=== PATIENT | female | born 1950 | race Caucasian/White ===

== ENCOUNTER → 2017-08-23 09:57 | Outpatient (CLI) | payer MEDICARE, SELFPAY ==
[2017-08-23 12:33] LABS: Anion Gap 9 (5-15); BUN 24 mg/dL (7-18); BUN/Creat Ratio 21.4 RATIO (10-20); Calcium,Total 9.1 mg/dL (8.5-10.1); Chloride 102 mmol/L (98-107); Cholesterol 138 mg/dL (200); Creatinine, Serum 1.12 mg/dL (0.55-1.02); EST Glomerular Filtration Rate 51 mL/min (>60); Est Glom Filt Rate - Afr Amer 62 mL/min (>60); Glucose 94 mg/dL (74-106); High Density Lipoprotein 33 mg/dL; Potassium 4.6 mmol/L (3.5-5.1); Sodium Level 138 mmol/L (136-145); Triglycerides 255 mg/dL; Very Low Density Lipoprotein 51 mg/dL (5-40)
[2017-08-23 12:41] LABS: Hemoglobin A1c 7.1 % (4.2-6.3)
== END ==
PROVIDERS: Family Provider Family Medicine; PCP Family Medicine; Visit Provider Family Medicine
DX: E11.65 Type 2 diabetes mellitus with hyperglycemia (principal); E78.5 Hyperlipidemia, unspecified
CPT/HCPCS: 36415; 80048; 80061; 83036

== ENCOUNTER → 2017-09-07 13:28 | Outpatient (CLI) | payer MEDICARE, SELFPAY ==
--- NOTE | 2017-09-07 13:32 | RAD_ITS ---
STUDY: X-RAY - CERVICAL SPINE REASON FOR EXAM: Female, 67 years old. Pain. TECHNIQUE: 5 view(s) of the cervical spine were obtained. COMPARISON: None FINDINGS: Normal anterior atlantoaxial articulation. Normal odontoid process. Normal cervical lordosis. There is mild multi-level endplate spondylosis. There is mild multi-level degenerative disc disease with multilevel disc space narrowing. Normal visualized intervertebral neuroforamina. The soft tissue structures are unremarkable. There is no demonstrated fracture of the cervical spine. RAD/Cerv Spine 4 or 5 Views IMPRESSION: Mild degenerative changes. No acute abnormality. Electronically Signed: Kofi Arroyo MD at 20:05 EDT , Service support ,
== END ==
PROVIDERS: Family Provider Family Medicine; PCP Family Medicine; Visit Provider Family Medicine
DX: M54.2 Cervicalgia (principal)
CPT/HCPCS: 72050

== ENCOUNTER → 2018-01-13 12:49 | Outpatient (CLI) | payer MEDICARE, SELFPAY | PROVIDERS: Family Provider Family Medicine; PCP Family Medicine; Visit Provider Family Medicine | DX: Z12.31 Encounter for screening mammogram for malignant neoplasm of breast (principal) | CPT/HCPCS: 77063; 77067 ==

== ENCOUNTER 2018-06-25 15:28 | Inpatient (IN) | payer MEDICARE, SELFPAY ==
[2018-06-25 15:29] VITALS: BP 149/87; PULSE 77; RESP 14; TEMP 36.7; O2SAT 98; BMI 23.4
--- NOTE | 2018-06-25 15:51 | ED.RN ---
FRIEND OF PT SIVAKUMAR, TO BE NOTIFIED WHEN PT'S BLOOD WORK AND URINE ARE BACK. [phone].
[2018-06-25 16:10] LABS: Bacteria 0 SEEN /hpf (None Seen); Mucous, Urine 0 SEEN /hpf (<or=2+); Red Blood Cells-Urine 0 SEEN /hpf (0-5)
[2018-06-25 16:19] LABS: Color, Urine Straw (Yellow); Glucose, Dipstick Normal (Normal); Ketone-Dipstick Negative (Negative); Leukocyte Esterase-Dipstick 25 /ul (Negative); Nitrite-Dipstick Negative (Negative); Occult Blood-Urine Negative /ul (Negative); Protein-Dipstick Negative (Negative); Specific Gravity, Urine 1.005 (1.002-1.030); Urine Bilirubin Dipstick Negative (Negative); Urine Clarity Clear (Clear); Urine Urobilinogen Normal (Normal)
[2018-06-25 16:30] LABS: Amphetamine Urine VISTA NEGATIVE (<1000 ng/mL); Barbiturate Urine VISTA NEGATIVE (< 200 ng/mL); Benzodiazepine Urine VISTA NEGATIVE (< 200 ng/mL); Cocaine Urine VISTA NEGATIVE (< 300 ng/mL); Ecstacy Urine VISTA NEGATIVE (< 500 ng/mL); Methadone Urine VISTA NEGATIVE (< 300 ng/mL); PCP Urine VISTA NEGATIVE (< 25 ng/mL); THC Urine VISTA POSITIVE (< 50 ng/mL); Vista UDS pH Range 7
[2018-06-25 16:30] LABS: Absolute Lymphocyte Count 2.87 X10^3/ul (0.83-4.51); Absolute Neutrophil Count 7.7 X10^3/uL (2.0-7.7); Basophil# 0.03 X10^3/uL; Basophil% 0.3 % (0-1); Eosinophil# 0.03 X10^3/uL; Eosinophils% 0.3 % (0-5); Hematocrit 33.2 % (37-47); Hemoglobin 11.2 g/dl (12.0-15.0); Lymphocyte # 2.87 X10^3/ul (4.0); Lymphocyte % 25.4 % (19-41); Mean Corp Hgb Conc 33.7 g/gl (32-36); Mean Corpuscular Hgb 28.7 pg (27.0-32.0); Mean Corpuscular Volume 85.1 fL (81-99); Mean Platelet Vol. 8.8 fl (6.2-12.0); Monocyte# 0.61 X10^3/uL; Monocyte% 5.4 % (0-10); Neutrophil # 7.72 X10^3/uL (2.7-7.7); Neutrophil % 68.4 % (47-70); Platelet Count 384 K/mm3 (150-450); RBC Distribution Width CV 14.7 % (11.6-14.6); RBC Distribution Width SD 46.1 fl (35.1-43.9); White Blood Count 11.3 K/mm3 (4.4-11.0)
[2018-06-25 16:31] LABS: POSITIVE COUNT NO; POSITIVE DIFFERENTIAL NO; POSITIVE MORPHOLOGY NO
[2018-06-25 16:36] LABS: Squamous Epithelial Cells - UA 0-5 SEEN /hpf (5-10); White Blood Cells 0-5 SEEN /hpf (0-5)
[2018-06-25 16:46] LABS: ALB/GLOB Ratio 0.9 RATIO (0.9-2.4); AST(SGOT) 40 U/L (15-37); Alanine Aminotransfer ALT/SGPT 30 U/L (13-56); Albumin, Serum 4.1 g/dL (3.2-5.0); Alkaline Phosphatase 83 U/L (45-117); Anion Gap 10 (5-15); BUN 17 mg/dL (7-18); BUN/Creat Ratio 17.6 RATIO (10-20); Calcium,Total 9.3 mg/dL (8.5-10.1); Chloride 83 mmol/L (98-107); Creatinine, Serum 0.97 mg/dL (0.55-1.02); EST Glomerular Filtration Rate 61 mL/min (>60); Est Glom Filt Rate - Afr Amer 74 mL/min (>60); Estimated Creatinine Clearance 49.25 ml/min; Globulin 4.6 g/dL (2.2-4.2); Glucose 97 mg/dL (74-106); Protein, Total 8.7 g/dL (6.4-8.2); Sodium Level 119 mmol/L (136-145)
--- NOTE | 2018-06-25 16:46 | EKG12_ITS ---
Test Reason : MENTAL STATUS Blood Pressure : / mmHG Vent. Rate : 064 BPM Atrial Rate : 064 BPM P-R Int : 216 ms QRS Dur : 106 ms QT Int : 422 ms P-R-T Axes : 062 -15 040 degrees QTc Int : 435 ms Sinus rhythm with 1st degree A-V block Incomplete right bundle branch block Borderline ECG Confirmed by DANDRE RAMSEY, KAYLAN ([id number]), senior editor GAVINO ALCALA ([id number]) on 06/30/2018 9:06:18 AM Referred By: DC Confirmed By:KAYLAN AMOS MD
[2018-06-25 16:51] LABS: Alcohol, Blood (Medical)-Serum < 3.0 mg/dL
--- NOTE | 2018-06-25 17:07 | ED.VISSUMM ---
- ER Visit Summary Date of Service: 06/25/18 Chief Complaint: Medication reaction History of Present Illness: The patient is a 68 F with a possible medication reaction. The patient has been having increasing manic symptoms for several months because she has been smoking marijuana more frequently. She said her symptoms have been worse over the past 5 days specifically. She says that this started after switching from Depakote to a new psychiatric medication. She is not sure of the name. She had some nausea and 2 episodes of vomiting at a voodoo buffet today. She currently denies nausea or abdominal pain. Denies any fevers. Denies any chest pain or shortness of breath. She does report decreased sleep and mild agitation. Denies any suicidal or homicidal thoughts. Physical Examination: Afebrile and vital signs unremarkable. Alert and oriented. Very slightly labile affect. No suicidal or homicidal thoughts. Head and neck atraumatic. Cranial nerves grossly intact. Heart regular. Lungs clear. Abdomen soft. Test Results: EKG showed sinus rhythm at a rate of 64. First-degree AV block and incomplete right bundle branch block pattern White count 11.3 and hemoglobin 11.2. Sodium 119 and chloride 83. AST 40. Urinalysis unremarkable. Alcohol negative. Tox positive for THC. Emergency Department Course and Treatment: Patient initially presented with some manic type symptoms. I do not believe she was a threat to herself or others. She was not pink slipped. I plan to have her evaluated by the crisis counselor. We attempted to figure out which new medicine she was on, but the patient is not sure. Her workup revealed a hyponatremia. I am not sure what is causing this. She has no history of this. She is not an alcohol drinker regularly. Again, I am not sure what medication she is on. We were unable to get this information from her . We will attempt to get the information from the crisis counselor. We are still waiting for this evaluation. Patient will need admission for hyponatremia. I do not believe she needs ICU. No history or evidence of seizures. I spoke with the hospitalist and she will be admitted to [facility]. Treatment Plan: As above Disposition: Admission Impression: 1. Hyponatremia 2. Bipolar disorder This note was generated with [employer]vation [employer] software. It may contain incorrect words, spelling, and punctuation that were not noted in review of the chart prior to signing ED Disposition - Plan for ED Patient: Referrals: Yemi Vasquez MD [Primary Care Provider] -
--- NOTE | 2018-06-25 17:10 | ED.DCSUM_ITS ---
- ER Visit Summary Date of Service: 06/25/18 Chief Complaint: Medication reaction History of Present Illness: The patient is a 68 F with a possible medication reaction. The patient has been having increasing manic symptoms for several months because she has been smoking marijuana more frequently. She said her symptoms have been worse over the past 5 days specifically. She says that this started after switching from Depakote to a new psychiatric medication. She is not sure of the name. She had some nausea and 2 episodes of vomiting at a yarsanism buffet today. She currently denies nausea or abdominal pain. Denies any fevers. Denies any chest pain or shortness of breath. She does report decrease d sleep and mild agitation. Denies any suicidal or homicidal thoughts. Physical Examination: Afebrile and vital signs unremarkable. Alert and oriented. Very slightly labile affect. No suicidal or homicidal thoughts. Head and neck atraumatic. Cranial nerves grossly intact. Heart regular. Lungs clear. Abdomen soft. Test Results: EKG showed sinus rhythm at a rate of 64. First-degree AV block and incomplete right bundle branch block pattern White count 11.3 and hemoglobin 11.2. Sodium 119 and chloride 83. AST 40. Urinalysis unremarkable. Alcohol negative. Tox positive for THC. Emergency Department Course and Treatment: Patient initially presented with some manic type symptoms. I do not believe she was a threat to herself or others. She was not pink slipped. I plan to have her evaluated by the crisis counselor. We attempted to figure out which new medicine she was on, but the patient is not sure. Her workup revealed a hyponatremia. I am not sure what is causing this. She has no history of this. She is not an alcohol drinker regularly. Again, I am not sure what medication she is on. We were unable to get this information from her . We will attempt to get the information from the crisis counselor. We are still waiting for this evaluation. Patient will need admission for hyponatremia. I do not believe she needs ICU. No history or evidence of seizures. I spoke with the hospitalist and she will be admitted to [facility]. Treatment Plan: As above Disposition: Admission Impression: 1. Hyponatremia 2. Bipolar disorder This note was generated with [employer] software. It may contain incorrect words, spelling, and punctuation that were not noted in review of the chart prior to signing ED Disposition - Plan for ED Patient: Referrals: Yemi Vasquez MD [Primary Care Provider] -
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
[2018-06-25] MEDS: LORazepam 1 MG Tablet PO ×2 (17:41→20:37)
[2018-06-25 17:51] VITALS: BP 142/77; PULSE 70; RESP 14; O2SAT 98
--- NOTE | 2018-06-25 18:17 | PCM.HP.STD ---
Problem List (1) Hyponatremia Status: Acute History of Present Illness Date of Admission: 06/25/18 Chief Complaint: joseph. near syncope The patient is a 68 year old F who states over the past month that she has been feeling more manic. Was at [facility] today where patient had couple episodes of vomiting and then patient was sent to the emergency room. Patient was noted to have a sodium of 119. Just received Ativan in the emergency room. Patient states that she does drink a lot but does not necessarily quantify the amount that she is drinking but states that she is thirsty and that she drinks a lot because she is a diabetic. Denies any alcohol consumption. Sodium is found to be 119 and was 138 back in August 2017. Patient being admitted for hyponatremia management and follow-up. Patient does endorse also daily and does have vomiting. Patient does not necessarily attributed to coincide with her marijuana use. Denies any alcohol consumption. [] Past Medical History Medical History: Medical History (Last Updated 06/25/18 @ 18:21 by Jose Liu DO) Bipolar disorder F31.9 DM2 (diabetes mellitus, type 2) E11.9 Psoriasis L40.9 Allergies codeine Allergy (Verified 06/25/18 15:34) Other Home Medications: Ambulatory Orders Medication Instructions Recorded Citalopram [Celexa] 20 mg PO QHS 01/13/15 Liraglutide [Victoza 2-Drew] 0.6 mg SQ DAILY 01/13/15 Lorazepam [Ativan] 1 mg PO TID PRN PRN 01/13/15 Losartan Potassium [Cozaar] 100 mg PO DAILY 01/13/15 Lurasidone HCl [Latuda] 20 mg PO DAILY 01/13/15 Melatonin/Pyridoxine HCl (B6) 1 each PO QHS 01/13/15 [Melatonin 10 mg Tablet] Metformin HCl [Glucophage] 1,000 mg PO BIDCM 01/13/15 Omeprazole [Prilosec] 20 mg PO DAILY 01/13/15 Pravastatin [Pravachol] 80 mg PO QHS 01/13/15 Asenapine Maleate [Saphris] 5 mg SUBLINGUAL QHS 06/25/18 Lives: Spouse/ Significant Other Smoking Status: Former smoker Tobacco Use: Non-smoker Alcohol: None Drugs: Marijuana - *Family History Maternal History Items: No pertinent history Review of Systems Constitutional: Reports: Chills. Denies: Anorexia, Fever Eyes: Denies: Blurred vision, Double vision HEENT: Denies: Head Aches, Sinus Congestion, Sinus Drainage Cardiovascular: Denies: Chest Pain, Palpitations Respiratory: Denies: Cough, Shortness of breath at rest, Sputum production Gastrointestinal: Reports: Nausea, Vomiting. Denies: Abdominal Pain Genitourinary: Denies: Dysuria Musculoskeletal: Denies: Joint Pain, Joint Tenderness Skin: Reports: - - Eczema Neurological: Denies: Numbness, Tingling, Focal weakness Psychiatric: Reports: - - Bipolar disorder Hematologic/ Lymphatic: Denies: Easy Bruising, Easy Bleeding, Hx of blood clot Comment: A 10 point review of systems were negative except as mentioned in the history of present illness and the other review of systems. VTE Information - Inpt Only VTE Present on Admission: No VTE Mechan Device Prophylaxis: None VTE Pharm Prophylaxis ordered?: Yes Patient Problems: Active and Suspected Problems Hyponatremia (Acute) - Physical Exam General: Alert, Cooperative, No apparent distress HEENT: Atraumatic, Normocephalic Oral: Moist Mucosa, No Gingival or Mucosal Lesions/ Ulcerations Neck: No Nodes, Thyroid Normal Size and Texture Lungs: Clear to auscultation, Normal air movement, No rhonchi, No wheeze Cardiovascular: Regular rate, Regular Rhythm, Normal S1, Normal S2, No murmurs Abdomen: Bowel Sounds Present, Soft, Non Tender, Non-Distended, No Hepato-splenomegaly Extremities: No edema, No Calf Tenderness Skin: - - Eczema over the dorsum of her hands bilaterally Psych/Mental Status: Normal Affect, Appropriate Vital Signs Temp Pulse Resp BP Pulse Ox 36.7 C 70 14 142/77 H 98 06/25/18 15:29 06/25/18 17:51 06/25/18 17:51 06/25/18 17:51 06/25/18 17:51 Oxygen Delivery Method Room Air Weight: 63.957 kg Body Mass Index (BMI) 23.4 Laboratory Tests Past 24 Hrs 06/25/18 06/25/18 06/25/18 16:00 16:00 16:15 WBC 11.3 H RBC 3.90 L Hgb 11.2 L Hct 33.2 L MCV 85.1 MCH 28.7 MCHC 33.7 RDW 14.7 H RDW Differential 46.1 H Plt Count 384 MPV 8.8 Immature Gran % (Auto) 0.200 Neut % (Auto) 68.4 Lymph % (Auto) 25.4 [place] % (Auto) 5.4 Eos % (Auto) 0.3 Baso % (Auto) 0.3 Absolute Neuts (auto) 7.7 Absolute Lymphs (auto) 2.87 Total Counted Not Reportable Sodium Potassium Chloride Carbon Dioxide Anion Gap BUN Creatinine Estim Creat Clear Calc Est GFR (MDRD) Af Amer Est GFR (MDRD) Non-Af BUN/Creatinine Ratio Glucose Calcium Total Bilirubin AST ALT Alkaline Phosphatase Total Protein Albumin Globulin Albumin/Globulin Ratio Urine Color Straw Urine Clarity Clear Urine pH 7.0 Ur Specific [place] 1.005 Urine Protein Negative Urine Glucose (UA) Normal Urine Ketones Negative Urine Occult Blood Negative Urine Nitrite Negative Urine Bilirubin Negative Urine Urobilinogen Normal Ur Leukocyte Esterase 25 H Urine RBC 0 SEEN Urine WBC 0-5 SEEN Ur Squamous Epith Cells 0-5 SEEN Urine Bacteria 0 SEEN Urine Mucus 0 SEEN Urine Opiates Screen NEGATIVE Urine Methadone Screen NEGATIVE Ur Barbiturates Screen NEGATIVE Ur Phencyclidine Scrn NEGATIVE Ur Amphetamines Screen NEGATIVE U Methamphetamin-MDMA NEGATIVE U Benzodiazepines Scrn NEGATIVE Urine Cocaine Screen NEGATIVE U Cannabinoids Screen POSITIVE H Ur Drug Screen Comment Ethyl Alcohol 06/25/18 06/25/18 16:15 16:15 WBC RBC Hgb Hct MCV MCH MCHC RDW RDW Differential Plt Count MPV Immature Gran % (Auto) Neut % (Auto) Lymph % (Auto) [place] % (Auto) Eos % (Auto) Baso % (Auto) Absolute Neuts (auto) Absolute Lymphs (auto) Total Counted Sodium 119 L* Potassium 4.0 Chloride 83 L Carbon Dioxide 26.0 Anion Gap 10 BUN 17 Creatinine 0.97 Estim Creat Clear Calc 49.25 Est GFR (MDRD) Af Amer 74 Est GFR (MDRD) Non-Af 61 BUN/Creatinine Ratio 17.6 Glucose 97 Calcium 9.3 Total Bilirubin 0.70 AST 40 H ALT 30 Alkaline Phosphatase 83 Total Protein 8.7 H Albumin 4.1 Globulin 4.6 H Albumin/Globulin Ratio 0.9 Urine Color Urine Clarity Urine pH Ur Specific [place] Urine Protein Urine Glucose (UA) Urine Ketones Urine Occult Blood Urine Nitrite Urine Bilirubin Urine Urobilinogen Ur Leukocyte Esterase Urine RBC Urine WBC Ur Squamous Epith Cells Urine Bacteria Urine Mucus Urine Opiates Screen Urine Methadone Screen Ur Barbiturates Screen Ur Phencyclidine Scrn Ur Amphetamines Screen U Methamphetamin-MDMA U Benzodiazepines Scrn Urine Cocaine Screen U Cannabinoids Screen Ur Drug Screen Comment Ethyl Alcohol < 3.0 Assessment/Plan All Active Problems Hyponatremia (Acute) 1. Hyponatremia I suspect is related with polydipsia and possible vomiting Patient will receive normal saline IV fluids Will hold Celexa given its potential cause of SIADH and hyponatremia Recheck sodium in the morning 2. Possible gastroenteritis Patient had a near syncopal episode today which I think is part related with a viral etiology Supportive management 3. Possible cannabinoid hyperemesis Patient made aware of the correlation with intractable nausea and vomiting associated with marijuana use. Patient stated that she was saved in [facility] and that she got the demons of marijuana out of her. Essentially she says she is negative smoke marijuana anymore. 4. Diabetes mellitus type 2 Continue with Tradjenta and Metformin Sliding scale insulin 5. Bipolar disorder Reviewed her medications if there are potential cause of hyponatremia. I think I can find is Celexa, which will be held. Patient to follow-up with psychiatry as outpatient 6. DVT prophylaxis with Lovenox Code Visit OBSV E&M: [id number] Initial observation care L2
[2018-06-25 18:21] VITALS: BMI 27.5
[2018-06-25 18:45] VITALS: BMI 27.5
[2018-06-25 18:53] VITALS: BP 116/80; PULSE 71; RESP 16; TEMP 36.9; O2SAT 97
[2018-06-25] MEDS: Dext 5%-0.45% NS 1,000 ML 150 ML IV (19:50)
[2018-06-25] MEDS: Pravastatin 80 MG Tablet PO (21:44)
[2018-06-25] MEDS: MELATONIN 10 MG TABLET PO (21:44)
[2018-06-25] MEDS: 0.9% NaCl Peripheral Flush Adult/Peds IV (21:45)
[2018-06-25 21:50] VITALS: BP 141/82; PULSE 63; RESP 16; TEMP 36.8; O2SAT 95
[2018-06-25 21:58] LABS: Bedside Glucose 181 mg/dL (70-110)
--- NOTE | 2018-06-25 22:58 | NURSING ---
2034- pt freaking out because RN told her she has melatonin to help her sleep tonight, pt states he couldn't take melatonin because it doesn't help. pt started crying and asking to call the dr and get valium 10 mg order. paged and spoke to Dr. Cabrera and made him aware, states to give her ativan one time now. gave ativan to pt and states if cant sleep tonight and will be really bad she's manic. explained to pt we are trying to help her and we can only give what ordered. also her NA was low and don't wan to give her valium. 2199- pts IV infiltrated because she keeps tagging it to the br. pt refused to have another one reinserted and started crying again and asking for ibuprofen for her headache. pt refused tylenol. 2299- charge nurse spoke to pt to try to convince her to have another Iv. charge nurse states pt refused and wants her pain meds. will paged Dr. cabrera.
[2018-06-25] MEDS: Ibuprofen 400 MG Tablet PO (23:32)
--- NOTE | 2018-06-25 23:39 | NURSING ---
2314- spoke to Dr. Cabrera and made him aware pt refusing her IV reinserted, her first one got infiltrated d/t pt tagging his line to the br. states to tell the pt she needs it because her Na was low. also pt asking for ibuprofen for her h/a. order received. 9856- spoke to pt and told her DR. Cabrera wanted her to be on IVF to fix her low Na which is 119. pt states she doesn't want any IV line anymore and she is refusing.
[2018-06-26 05:20] VITALS: BP 135/78; PULSE 75; RESP 16; TEMP 36.6; O2SAT 94
[2018-06-26 06:32] LABS: Anion Gap 12 (5-15); BUN 15 mg/dL (7-18); BUN/Creat Ratio 15.6 RATIO (10-20); Calcium,Total 9.3 mg/dL (8.5-10.1); Chloride 88 mmol/L (98-107); Creatinine, Serum 0.96 mg/dL (0.55-1.02); EST Glomerular Filtration Rate 61 mL/min (>60); Est Glom Filt Rate - Afr Amer 74 mL/min (>60); Estimated Creatinine Clearance 39.73 ml/min; Glucose 168 mg/dL (74-106); Sodium Level 122 mmol/L (136-145)
[2018-06-26 07:01] LABS: Bedside Glucose 208 mg/dL (70-110)
[2018-06-26] MEDS: Insulin Lispro 100 UNIT/ML INSULN.PEN SQ ×3 (07:01→16:34)
[2018-06-26] MEDS: LORazepam 1 MG Tablet PO ×3 (07:46→20:15)
[2018-06-26] MEDS: Ibuprofen 400 MG Tablet PO ×3 (07:47→20:15)
[2018-06-26 07:50] VITALS: BP 145/89; PULSE 71; RESP 18; TEMP 36.4; O2SAT 97
[2018-06-26] MEDS: metFORMIN HCl 1,000 MG Tablet 1000 MG PO ×2 (07:51→16:34)
[2018-06-26] MEDS: Enoxaparin 40 MG/0.4 ML Syringe SC (07:54)
--- NOTE | 2018-06-26 08:16 | PCM.PN.HOSP ---
Patient Problems: Active and Suspected Problems (Last Updated 06/25/18 @ 18:21 by Jose Liu DO) Hyponatremia (Acute) Subjective: Patient was seen and examined. She complains of feeling weak and feeling very tired. She denied any chest pain or dizziness. She feels less confused. She admits her current admission is due to her joseph and insertable test from her recent medications. No other acute events overnight. Vitals/I&O's: Vital Signs Temp Pulse Resp BP Pulse Ox 97.8 F 75 16 135/78 H 94 06/26/18 05:20 06/26/18 05:20 06/26/18 05:20 06/26/18 05:20 06/26/18 05:20 Oxygen Delivery Method Room Air Weight: 65 kg Body Mass Index (BMI) 27.5 Intake and Output for Last 24 Hours 06/24/18 06/25/18 06/26/18 23:59 23:59 23:59 Intake Total 550 / 550 300 / 300 Balance 550 / 550 300 / 300 General: Alert, Oriented x3, Cooperative HEENT: Atraumatic, PERRLA, EOMI, Normocephalic Oral: Moist Mucosa Neck: Supple, No JVD, Negative Carotid Bruits Lungs: Clear to auscultation, Normal air movement Cardiovascular: Regular rate, Regular Rhythm, Normal S1, Normal S2, No murmurs Abdomen: Bowel Sounds Present, Soft, Non Tender, Non-Distended, No Hepato-splenomegaly Extremities: No edema Skin: No rashes, No breakdown Musculoskeletal: No Tenderness to Palpation of Joints or Extremities Lymphatic: No Cervical, Supraclavicular, or Inguinal Adenopathy Neurological: Cranial nerves II-XII grossly intact, Neuro grossly intact Psych/Mental Status: Normal Affect, Appropriate Laboratory Results 06/25/18 16:00: Urine Opiates Screen NEGATIVE, Urine Methadone Screen NEGATIVE, Ur Barbiturates Screen NEGATIVE, Ur Phencyclidine Scrn NEGATIVE, Ur Amphetamines Screen NEGATIVE, U Methamphetamin-MDMA NEGATIVE, U Benzodiazepines Scrn NEGATIVE, Urine Cocaine Screen NEGATIVE, U Cannabinoids Screen POSITIVE H, Ur Drug Screen Comment 06/25/18 16:00: Urine Color Straw, Urine Clarity Clear, Urine pH 7.0, Ur Specific [place] 1.005, Urine Protein Negative, Urine Glucose (UA) Normal, Urine Ketones Negative, Urine Occult Blood Negative, Urine Nitrite Negative, Urine Bilirubin Negative, Urine Urobilinogen Normal, Ur Leukocyte Esterase 25 H, Urine RBC 0 SEEN, Urine WBC 0-5 SEEN, Ur Squamous Epith Cells 0-5 SEEN, Urine Bacteria 0 SEEN, Urine Mucus 0 SEEN 06/25/18 16:15: WBC 11.3 H, RBC 3.90 L, Hgb 11.2 L, Hct 33.2 L, MCV 85.1, MCH 28.7, MCHC 33.7, RDW 14.7 H, RDW Differential 46.1 H, Plt Count 384, MPV 8.8, Immature Gran % (Auto) 0.200, Neut % (Auto) 68.4, Lymph % (Auto) 25.4, [place] % (Auto) 5.4, Eos % (Auto) 0.3, Baso % (Auto) 0.3, Absolute Neuts (auto) 7.7, Absolute Lymphs (auto) 2.87, Total Counted Not Reportable 06/25/18 16:15: Sodium 119 L*, Potassium 4.0, Chloride 83 L, Carbon Dioxide 26.0, Anion Gap 10, BUN 17, Creatinine 0.97, Estim Creat Clear Calc 49.25, Est GFR (MDRD) Af Amer 74, Est GFR (MDRD) Non-Af 61, BUN/Creatinine Ratio 17.6, Glucose 97, Calcium 9.3, Total Bilirubin 0.70, AST 40 H, ALT 30, Alkaline Phosphatase 83, Total Protein 8.7 H, Albumin 4.1, Globulin 4.6 H, Albumin/Globulin Ratio 0.9 06/25/18 16:15: Ethyl Alcohol < 3.0 06/25/18 21:40: POC Glucose 181 H 06/26/18 05:40: Sodium 122 L, Potassium 4.0, Chloride 88 L, Carbon Dioxide 22.0, Anion Gap 12, BUN 15, Creatinine 0.96, Estim Creat Clear Calc 39.73, Est GFR (MDRD) Af Amer 74, Est GFR (MDRD) Non-Af 61, BUN/Creatinine Ratio 15.6, Glucose 168 H, Calcium 9.3 06/26/18 06:52: POC Glucose 208 H Current Medications Acetaminophen (Tylenol) 650 mg PO Q6H PRN PRN PRN Reason: Mild Pain (1-3)/Temp > 100.7 F Dextrose (D50w Syringe) 0 gm IV X1 PRN; Protocol PRN Reason: Hypoglycemia Enoxaparin Sodium (Lovenox) 40 mg SC DAILY@1000 [facility] Last Admin: 06/26/18 07:54 Dose: 40 mg Glucagon () 1 mg IM .X1 PRN PRN Reason: Hypoglycemia Ibuprofen (Motrin) 400 mg PO Q6H PRN PRN PRN Reason: headache Last Admin: 06/26/18 07:47 Dose: 400 mg Insulin Human Lispro (Humalog Kwikpen (Bkc)) 0 unit SQ TIDAC [facility]; Protocol Last Admin: 06/26/18 07:01 Dose: 2 u Lorazepam (Ativan) 1 mg PO TID PRN PRN PRN Reason: ANXIETY Last Admin: 06/26/18 07:46 Dose: 1 mg Magnesium Hydroxide (Milk Of Magnesia) 30 ml PO DAILY PRN PRN PRN Reason: Constipation Melatonin (Melatonin) 10 mg PO QHS [facility] Last Admin: 06/25/18 21:44 Dose: 10 mg Metformin HCl (Glucophage) 1,000 mg PO BIDCM [facility] Last Admin: 06/26/18 07:51 Dose: 1,000 mg Non-Formulary Medication (Liraglutide) 0.6 mg SQ DAILY [facility] Ondansetron HCl (Zofran) 4 mg IV Q8H PRN PRN PRN Reason: NAUSEA Pantoprazole Sodium (Protonix) 20 mg PO DAILY [facility] Pravastatin Sodium (Pravachol) 80 mg PO QHS [facility] Last Admin: 06/25/18 21:44 Dose: 80 mg Sodium Chloride () 5 - 15 ml IV UD PRN PRN Reason: SALINE FLUSH Last Admin: 06/25/18 21:45 Dose: 10 ml Medical Necessity - Tobacco Use Smoking Status: Former smoker Tobacco Use: Cigarettes Assessment/Plan All Active Problems (Last Updated 06/25/18 @ 18:21 by Jose Liu DO) Hyponatremia (Acute) 68-year-old with past medical history of bipolar disorder, type II DM, psoriasis who comes in with complaints of vomiting and was found to have severe hyponatremia of 119. And admits to feeling very thirsty and drinking a lot since being started on Latuda. 1.Acute hyponatremia, secondary to psychogenic polydipsia and vomiting, patient clinically appears improved, sodium this morning is 122, increased by 3, patient is stable, will continue to restrict fluid to less than 1 L of total fluid per day, BMP at 12 noon and in a.m. 2.Possible gastroenteritis, resolved 3.Type 2 diabetes, blood sugars controlled, continue on Tradjenta metformin, Accu-Cheks with insulin sliding scale 4.Bipolar disorder, on asenapine, ativan prn, Latuda and Celexa on hold, will need to follow up with psychiatry in the outpatient. 5. DVT PPx- Lovenox Sc Code Visit Inpatient E&M: 21780 Subs Hosp L2
[2018-06-26 08:36] LABS: Absolute Lymphocyte Count 2.68 X10^3/ul (0.83-4.51); Basophil# 0.04 X10^3/uL; Basophil% 0.5 % (0-1); Eosinophil# 0.14 X10^3/uL; Eosinophils% 1.9 % (0-5); Hematocrit 32.9 % (37-47); Hemoglobin 11.1 g/dl (12.0-15.0); Lymphocyte # 2.68 X10^3/ul (4.0); Lymphocyte % 35.7 % (19-41); Mean Corp Hgb Conc 33.7 g/gl (32-36); Mean Corpuscular Hgb 29.1 pg (27.0-32.0); Mean Corpuscular Volume 86.1 fL (81-99); Mean Platelet Vol. 9.3 fl (6.2-12.0); Monocyte# 0.63 X10^3/uL; Monocyte% 8.4 % (0-10); Neutrophil # 4.01 X10^3/uL (2.7-7.7); Neutrophil % 53.4 % (47-70); Platelet Count 376 K/mm3 (150-450); RBC Distribution Width CV 14.8 % (11.6-14.6); RBC Distribution Width SD 46.7 fl (35.1-43.9); Red Blood Count 3.82 M/mm3 (4.2-5.4); White Blood Count 7.5 K/mm3 (4.4-11.0)
[2018-06-26 08:38] LABS: POSITIVE COUNT NO; POSITIVE DIFFERENTIAL NO; POSITIVE MORPHOLOGY NO
[2018-06-26 11:46] LABS: Bedside Glucose 174 mg/dL (70-110)
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
[2018-06-26 14:00] VITALS: BP 161/96; PULSE 73; RESP 16; TEMP 36.8; O2SAT 95
[2018-06-26 14:12] LABS: Anion Gap 13 (5-15); BUN 16 mg/dL (7-18); Calcium,Total 9.5 mg/dL (8.5-10.1); Chloride 87 mmol/L (98-107); Creatinine, Serum 1.14 mg/dL (0.55-1.02); EST Glomerular Filtration Rate 50 mL/min (>60); Est Glom Filt Rate - Afr Amer 61 mL/min (>60); Estimated Creatinine Clearance 33.45 ml/min; Glucose 196 mg/dL (74-106); Potassium 4.4 mmol/L (3.5-5.1); Sodium Level 122 mmol/L (136-145)
--- NOTE | 2018-06-26 15:02 | CHAPLAIN ---
Type of Pastoral Visit _x__ Initial Visit ___ Follow-up Visit ___ On-call Visit ___ General Patient Visit ___ Spiritual Assessment ___ Family Conference ___ Bereavement ___ Rapid Response ___ Code Blue ___ Other (describe below) Pastoral Care Referral From _x__ Patient ___ Family ___ Nurse ___ Physician ___ Psychological Operations Specialist ___ Load Out Worker ___ Other (describe below) Sacrament/Intervention _x__ Active listening ___ Anointing ___ Catholic ___ Bereavement ___ Communion _x__ [place] exploration ___ _x__ Life review _x__ Prayer ___ Reconciliation ___ Sacrament of Sick _x__ Supportive presence ___ Wedding ___ Other (describe below) Pastoral Comments followed SW visit to this patient; pt immediately requests a Bible and a Daily Bread devotional; pt is talkative and explains her situation and hx of bi-polar disorder; pt says she has been with alcoholic for 38 years; pt says she needs med change and needs to see Crisis Counselor soon; pt gives some life history and moves the conversation quickly; pt says she attends [employer] and is a Protestant; prayer welcomed; at conclusion pt reports that she feels peaceful and she quotes a Bible verse; staff educator gave pt a Daily Bread booklet and will return with Bible
--- NOTE | 2018-06-26 15:35 | NURSING ---
called Wyatt per pt request. provided update and informed him that the social work manager is working with the pt and is exploring options for her safety. verbalized understanding.
[2018-06-26 16:46] LABS: Bedside Glucose 189 mg/dL (70-110)
[2018-06-26 19:51] VITALS: RESP 18
[2018-06-26 19:58] VITALS: BP 136/88; PULSE 72; RESP 16; TEMP 37.1; O2SAT 98
[2018-06-26] MEDS: ASENAPINE MALEATE 5 MG TAB.SUBL SL (20:14)
[2018-06-26] MEDS: Pravastatin 80 MG Tablet PO (20:14)
[2018-06-26] MEDS: Pantoprazole Sodium 20 MG Tablet PO (20:14)
[2018-06-26] MEDS: MELATONIN 10 MG TABLET PO (20:16)
--- NOTE | 2018-06-26 23:48 | NURSING ---
Difficult to track output because patient is independent.
[2018-06-27] MEDS: Ibuprofen 400 MG Tablet PO ×4 (03:31→22:13)
[2018-06-27 03:32] VITALS: BP 139/100; PULSE 82; RESP 18; TEMP 36.7; O2SAT 99
[2018-06-27 03:46] LABS: Bedside Glucose 145 mg/dL (70-110)
[2018-06-27] MEDS: Insulin Lispro 100 UNIT/ML INSULN.PEN SQ ×3 (06:51→17:24)
[2018-06-27 07:01] LABS: Bedside Glucose 206 mg/dL (70-110)
--- NOTE | 2018-06-27 07:14 | PCM.PROGNOTE ---
Patient Problems: Active and Suspected Problems (Last Updated 06/25/18 @ 18:21 by Jose Liu DO) Hyponatremia (Acute) Subjective: Ms. Reddy is a 68 YO female with a PMH of bipolar disorder, diabetes mellitus type 2, hyperlipidemia, chronic marijuana use (stated she was saved in [facility] and that she got the demons Marijuana out of her. states she no longer smokes marijuana) and psoriasis who presented to the emergency department at [facility] on 06/25/2018 complaining of feeling manic. She also reported that she had a couple episodes of vomiting while at [facility]). Vital signs of presentation to the emergency room temperature 98, pulse rate 77, blood pressure 149/87, respiratory rate 14 and pulse ox on room air was 98%. CBC showed an elevated white blood cell count at 11.3, hemoglobin 11.2 and normal platelets. Serum sodium was 119 with a chloride of 83. BUN was 17 and the creatinine was 0.97. Liver panel was unremarkable. UA was negative for urinary tract infection. Urine drug screen was positive for cannabinoids. She was admitted to the hospital and intravenous fluids were ordered and repeat lab in the AM. Celexa was held because of possible side effects of SIADH and hyponatremia. She was counselled on marijuana use and potential side effect of hyperemesis. The hospital does not have Latuda or Asenapine. All events the past 24 hours been reviewed. Afebrile since admission. Vital signs are stable. She is 95-99% on room air. Fluid balance since admission is +850. All lab was personally reviewed. Sodium is 126 today with a BUN of 16 and a creatinine of 1.22. Blood sugars have ranged from 145-208. Fractional excretion of sodium is less than 1% which is usually seen with prerenal azotemia. Hemoglobin A1c is 6.9%. Denies nausea today and she is tolerating her current diet. Slept better last night. She was recently started on the Asenapine 1 week ago for joseph by the counselling center. Was not sleeping and was running up and down the stairs. - Physical Exam General: Alert, Oriented x3, Cooperative, No apparent distress HEENT: Atraumatic, PERRLA, EOMI, Normocephalic Oral: Dry Mucosa Neck: Supple, No JVD, No Nuchal Rigidity, Trachea Midline Lungs: Clear to auscultation Cardiovascular: Regular rate, Regular Rhythm, Normal S1, Normal S2, No murmurs, No Gallop Abdomen: Bowel Sounds Present, Soft, Non Tender, Non-Distended Extremities: No clubbing, No cyanosis, No edema Skin: No rashes Neurological: Cranial nerves II-XII grossly intact, Neuro grossly intact Psych/Mental Status: - - She is able to converse with me in a cohesive manner and she s able to answer questions apropriately and follow commands. she is not fidgety. She stays on topic but, when she is done answering my questions she starts talking abut unrelated topics......mild flight of ideas. Vital Signs Temp Pulse Resp BP Pulse Ox 98.0 F 82 18 139/100 H 99 06/27/18 03:32 06/27/18 03:32 06/27/18 03:32 06/27/18 03:32 06/27/18 03:32 Oxygen Delivery Method Room Air Weight: 143 lb 4.807 oz Body Mass Index (BMI) 27.5 Intake and Output for Last 24 Hours 06/25/18 06/26/18 06/27/18 23:59 23:59 23:59 Intake Total 550 / 550 1490 / 1490 240 / 240 Output Total 700 / 700 700 / 700 Balance 550 / 550 790 / 790 -460 / -460 Laboratory Tests Past 24 Hrs 06/26/18 06/26/18 06/26/18 05:40 12:55 13:47 WBC 7.5 RBC 3.82 L Hgb 11.1 L Hct 32.9 L MCV 86.1 MCH 29.1 MCHC 33.7 RDW 14.8 H RDW Differential 46.7 H Plt Count 376 MPV 9.3 Immature Gran % (Auto) 0.100 Neut % (Auto) 53.4 Lymph % (Auto) 35.7 [place] % (Auto) 8.4 Eos % (Auto) 1.9 Baso % (Auto) 0.5 Absolute Neuts (auto) 4.0 Absolute Lymphs (auto) 2.68 Total Counted Not Reportable Sodium Cancelled 122 L Potassium Cancelled 4.4 Chloride Cancelled 87 L Carbon Dioxide Cancelled 22.0 Anion Gap Cancelled 13 BUN Cancelled 16 Creatinine Cancelled 1.14 H Estim Creat Clear Calc Cancelled 33.45 Est GFR (MDRD) Af Amer Cancelled 61 Est GFR (MDRD) Non-Af Cancelled 50 L BUN/Creatinine Ratio Cancelled 14.0 Glucose Cancelled 196 H Calcium Cancelled 9.5 POC Glucose 06/27/18 06/27/18 06/26/18 06:48 03:38 16:32 POC Glucose 206 H 145 H 189 H 06/26/18 11:29 POC Glucose 174 H Medical Necessity - Tobacco Use Smoking Status: Former smoker Tobacco Use: Cigarettes Assessment/Plan All Active Problems (Last Updated 06/25/18 @ 18:21 by Jose Liu, ) Hyponatremia (Acute) Impressions 1. Hyponatremia-etiology? 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 2. Bipolar disorder with recent joseph-seen at the counseling center and started on asenapine 3. Gastroenteritis versus nausea/vomiting secondary to chronic cannabis use 4. Daily cannabis use-6 tokes or more daily 5. Diabetes mellitus type 2 Check a urine sodium and creatinine and a urine and serum, osmolality. TSH, HGBA1C and cortisol. Mag and phos. Discontinue IV fluids( patient refused IV restart due to pain at the IV site with infiltration. Start fluid restriction, 1000 oral Both Latuda and Asenapine are second generation antipsychotics and both can cause hyponatremia - our pharmacy does not carry either one of these medications so she has not been getting them in the hospital. Pt later related that she is no longer taking Latruda even though is on the medication reconciliation consult today. D/W the SW and the DC financial planner and will try and get an appt for her to be re-evaluated at the counselling center this week Recheck the lab in the AM Advised she discontinue marijuana use Code Visit Inpatient E&M: 73480 Subs Hosp L2
--- NOTE | 2018-06-27 07:27 | PN_ITS ---
Patient Problems: Active and Suspected Problems (Last Updated 06/25/18 @ 18:21 by Jose Liu DO) Hyponatremia (Acute) Subjective: Ms. Reddy is a 68 YO female with a PMH of bipolar disorder, diabetes mellitus type 2, hyperlipidemia, chronic marijuana use (stated she was [place] [facility] and that she got the demons Marijuana out of her. states she no longer smokes marijuana) and psoriasis who presented to the emergency department at [facility] on 06/25/2018 complaining of feeling manic. She also reported that she had a couple episodes of vomiting while at [facility]). Vital signs of presentation to the emergency room temperature 98, pulse rate 77, blood pressure 149/87, respiratory rate 14 and pulse ox on room air was 98%. CBC showed an elevated white blood cell count at 11.3, hemoglobin 11.2 and normal platelets. Serum sodium was 119 with a chloride of 83. BUN was 17 and the creatinine was 0.97. Liver panel was unremarkable. UA was negative for urinary tract infection. Urine drug screen was positive for cannabinoids. She was admitted to the hospital and intravenous fluids were ordered and repeat lab in the AM. Celexa was held because of possible side effects of SIADH and hyponatremia. She was counselled on marijuana use and potential side effect of hyperemesis. The hospital does not have Latuda or Asenapine. All events the past 24 hours been reviewed. Afebrile since admission. Vital signs are stable. She is 95-99% on room air. Fluid balance since admission is +850. All lab was personally reviewed. Sodium is 126 today with a BUN of 16 and a creatinine of 1.22. Blood sugars have ranged from 145-208. Fractional excretion of sodium is less than 1% which is usually seen with prerenal azotemia. Hemoglobin A1c is 6.9%. Denies nausea today and she is tolerating her current diet. Slept better last night. She was recently started on the Asenapine 1 week ago for joseph by the counselling center. Was not sleeping and was running up and down the stairs. - Physical Exam General: Alert, Oriented x3, Cooperative, No apparent distress HEENT: Atraumatic, PERRLA, EOMI, Normocephalic Oral: Dry Mucosa Neck: Supple, No JVD, No Nuchal Rigidity, Trachea Midline Lungs: Clear to auscultation Cardiovascular: Regular rate, Regular Rhythm, Normal S1, Normal S2, No murmurs, No Gallop Abdomen: Bowel Sounds Present, Soft, Non Tender, Non-Distended Extremities: No clubbing, No cyanosis, No edema Skin: No rashes Neurological: Cranial nerves II-XII grossly intact, Neuro grossly intact Psych/Mental Status: - - She is able to converse with me in a cohesive manner and she s able to answer questions apropriately and follow commands. she is not fidgety. She stays on topic but, when she is done answering my questions she starts talking abut unrelated topics......mild flight of ideas. Vital Signs Temp Pulse Resp BP Pulse Ox 98.0 F 82 18 139/100 H 99 06/27/18 03:32 06/27/18 03:32 06/27/18 03:32 06/27/18 03:32 06/27/18 03:32 Oxygen Delivery Method Room Air Weight: 143 lb 4.807 oz Body Mass Index (BMI) 27.5 Intake and Output for Last 24 Hours 06/25/18 06/26/18 06/27/18 23:59 23:59 23:59 Intake Total 550 / 550 1490 / 1490 240 / 240 Output Total 700 / 700 700 / 700 Balance 550 / 550 790 / 790 -460 / -460 Laboratory Tests Past 24 Hrs 06/26/18 06/26/18 06/26/18 05:40 12:55 13:47 WBC 7.5 RBC 3.82 L Hgb 11.1 L Hct 32.9 L MCV 86.1 MCH 29.1 MCHC 33.7 RDW 14.8 H RDW Differential 46.7 H Plt Count 376 MPV 9.3 Immature Gran % (Auto) 0.100 Neut % (Auto) 53.4 Lymph % (Auto) 35.7 [place] % (Auto) 8.4 Eos % (Auto) 1.9 Baso % (Auto) 0.5 Absolute Neuts (auto) 4.0 Absolute Lymphs (auto) 2.68 Total Counted Not Reportable Sodium Cancelled 122 L Potassium Cancelled 4.4 Chloride Cancelled 87 L Carbon Dioxide Cancelled 22.0 Anion Gap Cancelled 13 BUN Cancelled 16 Creatinine Cancelled 1.14 H Estim Creat Clear Calc Cancelled 33.45 Est GFR (MDRD) Af Amer Cancelled 61 Est GFR (MDRD) Non-Af Cancelled 50 L BUN/Creatinine Ratio Cancelled 14.0 Glucose Cancelled 196 H Calcium Cancelled 9.5 POC Glucose 06/27/18 06/27/18 06/26/18 06:48 03:38 16:32 POC Glucose 206 H 145 H 189 H 06/26/18 11:29 POC Glucose 174 H Medical Necessity - Tobacco Use Smoking Status: Former smoker Tobacco Use: Cigarettes Assessment/Plan All Active Problems (Last Updated 06/25/18 @ 18:21 by Jose Liu, ) Hyponatremia (Acute) Impressions 1. Hyponatremia-etiology? 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 2. Bipolar disorder with recent joseph-seen at the counseling center and started on asenapine 3. Gastroenteritis versus nausea/vomiting secondary to chronic cannabis use 4. Daily cannabis use-6 tokes or more daily 5. Diabetes mellitus type 2 Check a urine sodium and creatinine and a urine and serum, osmolality. TSH, HGBA1C and cortisol. Mag and phos. Discontinue IV fluids( patient refused IV restart due to pain at the IV site with infiltration. Start fluid restriction, 1000 oral Both Latuda and Asenapine are second generation antipsychotics and both can cause hyponatremia - our pharmacy does not carry either one of these medications so she has not been getting them in the hospital. Pt later related that she is no longer taking Latruda even though is on the medication reconciliation consult today. D/W the SW and the DC logistics planner and will try and get an appt for her to be re- evaluated at the counselling center this week Recheck the lab in the AM Advised she discontinue marijuana use Code Visit Inpatient E&M: 45108 Subs Hosp L2
[2018-06-27 07:50] VITALS: BP 158/83; PULSE 80; RESP 18; TEMP 36.8; O2SAT 98
[2018-06-27] MEDS: Enoxaparin 40 MG/0.4 ML Syringe SC (07:55)
[2018-06-27] MEDS: metFORMIN HCl 1,000 MG Tablet 1000 MG PO ×2 (07:55→17:24)
--- NOTE | 2018-06-27 09:07 | CASEMGMT ---
Addendum entered by Elizabeth Willson 06/27/18 12:12: ALEJANDRA spoke with Meli at . Meli states she will talk to pt at 2:00pm today. RN and charge nurse updated. Original Note: Social Work Note SW received message from Meli at stating she is able to evaluate pt today and afternoon works better for her. ALEJANDRA placed a call back to Meli and informed her that this worker is unsure when pt is going to be discharged so anytime today she is able to talk to pt will work. Elizabeth Willson DISPLAY SPECIALIST, TRANSIT POLICE OFFICER
[2018-06-27 09:20] LABS: Urine Sodium 52 mmol/L (Not Establ.)
[2018-06-27 09:36] LABS: Osmolality, Urine 291 mOsm/KG
[2018-06-27 09:43] LABS: Phosphorus 3.4 mg/dL (2.5-4.9)
[2018-06-27 09:52] LABS: Magnesium 1.6 mg/dL (1.6-2.6); Thyroid Stim Hormone (TSH) 1.71 uIU/mL (0.358-3.74)
[2018-06-27 09:53] LABS: Osmolality, Serum 271 mOsm/KG (280-301)
[2018-06-27 10:22] LABS: Absolute Lymphocyte Count 2.32 X10^3/ul (0.83-4.51); Absolute Neutrophil Count 6.4 X10^3/uL (2.0-7.7); Basophil# 0.05 X10^3/uL; Basophil% 0.5 % (0-1); Eosinophil# 0.08 X10^3/uL; Eosinophils% 0.8 % (0-5); Hematocrit 34.6 % (37-47); Hemoglobin 11.6 g/dl (12.0-15.0); Lymphocyte # 2.32 X10^3/ul (4.0); Mean Corp Hgb Conc 33.5 g/gl (32-36); Mean Corpuscular Hgb 29.1 pg (27.0-32.0); Mean Corpuscular Volume 86.7 fL (81-99); Mean Platelet Vol. 9.3 fl (6.2-12.0); Monocyte% 8.3 % (0-10); Neutrophil % 66.3 % (47-70); Platelet Count 397 K/mm3 (150-450); RBC Distribution Width CV 14.9 % (11.6-14.6); RBC Distribution Width SD 47.7 fl (35.1-43.9); Red Blood Count 3.99 M/mm3 (4.2-5.4); White Blood Count 9.7 K/mm3 (4.4-11.0)
[2018-06-27 10:23] LABS: POSITIVE COUNT NO; POSITIVE DIFFERENTIAL NO; POSITIVE MORPHOLOGY NO
[2018-06-27 10:30] LABS: Anion Gap 10 (5-15); BUN 16 mg/dL (7-18); BUN/Creat Ratio 13.1 RATIO (10-20); Calcium,Total 10.1 mg/dL (8.5-10.1); Chloride 91 mmol/L (98-107); Creatinine, Serum 1.22 mg/dL (0.55-1.02); EST Glomerular Filtration Rate 46 mL/min (>60); Est Glom Filt Rate - Afr Amer 56 mL/min (>60); Estimated Creatinine Clearance 31.26 ml/min; Glucose 171 mg/dL (74-106); Potassium 4.6 mmol/L (3.5-5.1); Sodium Level 126 mmol/L (136-145)
[2018-06-27 11:05] LABS: Hemoglobin A1c 6.9 % (4.2-6.3)
[2018-06-27 12:11] LABS: Bedside Glucose 191 mg/dL (70-110)
[2018-06-27 14:45] VITALS: BP 140/82; PULSE 80; RESP 16; TEMP 37; O2SAT 96
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
--- NOTE | 2018-06-27 15:49 | CASEMGMT ---
Social Work Note ALEJANDRA met with pt as pt requested to speak to this worker. Pt states that she is doing better and she got 7 hours of sleep last night. Pt confirms that she met with Meli from and is interested in their program but states that she is currently [facility] with [facility]. Pt states that she was provided Medicaid application and once her or daughter comes to [facility] she is going to ask them to assist her in completing the application. SW informed pt that physician had mentioned getting pt's appointment at [facility] moved up as it is currently scheduled about three weeks out. Pt agreeable to this worker calling [facility] and moving up appointment. PT signed authorization to release medical records and placed on pt's chart. SW placed a call to [facility] and pt's last appointment was on June 21 and it was with psychiatry services. ALEJANDRA spoke with Loretta in psychiatry services who states appointments are booked out 3 weeks [address] pt on list to be called if Jailene at [facility] has a cancellation. Elizabeth Willson BANK WORKER, TELEVISION ENGINEERING TEACHER
--- NOTE | 2018-06-27 16:04 | NURSING ---
called [facility] per request and provided update on pt status.
[2018-06-27] MEDS: LORazepam 1 MG Tablet PO (16:16)
[2018-06-27 18:01] LABS: Bedside Glucose 165 mg/dL (70-110)
[2018-06-27 20:49] VITALS: BP 141/85; PULSE 80; RESP 18; TEMP 36.9; O2SAT 98
[2018-06-27] MEDS: Pantoprazole Sodium 20 MG Tablet PO (21:36)
[2018-06-27] MEDS: MELATONIN 10 MG TABLET PO (21:36)
[2018-06-27] MEDS: Pravastatin 80 MG Tablet PO (21:36)
[2018-06-27] MEDS: ASENAPINE MALEATE 5 MG TAB.SUBL SL (21:39)
[2018-06-27 22:31] LABS: Bedside Glucose 172 mg/dL (70-110)
[2018-06-28 02:30] VITALS: BP 149/95; PULSE 89; RESP 18; TEMP 36.8; O2SAT 96
[2018-06-28] MEDS: Insulin Lispro 100 UNIT/ML INSULN.PEN SQ ×3 (07:06→15:52)
[2018-06-28 07:16] LABS: Bedside Glucose 167 mg/dL (70-110)
[2018-06-28 07:31] VITALS: BP 145/92; PULSE 86; RESP 16; TEMP 36.5; O2SAT 98
[2018-06-28 07:42] LABS: Anion Gap 15 (5-15); BUN 17 mg/dL (7-18); BUN/Creat Ratio 14.8 RATIO (10-20); Calcium,Total 9.8 mg/dL (8.5-10.1); Chloride 96 mmol/L (98-107); Creatinine, Serum 1.15 mg/dL (0.55-1.02); EST Glomerular Filtration Rate 50 mL/min (>60); Est Glom Filt Rate - Afr Amer 60 mL/min (>60); Estimated Creatinine Clearance 33.16 ml/min; Glucose 168 mg/dL (74-106); Potassium 4.3 mmol/L (3.5-5.1); Sodium Level 130 mmol/L (136-145)
--- NOTE | 2018-06-28 07:48 | PN_ITS ---
Subjective: All events of the past 24 hours of been reviewed. Afebrile since admission. Blood pressures for the past 24 hours have ranged from 140/82-140 9/95. Current blood pressure is 145/92. 96-90% saturation on room air. Fluid balance on 06/27/2018 was -350 and overnight she is a -450. Fluid balance since admission is +540. Sodium today is 130 with a chloride of 96. BUN is 17 with a stable creatinine at 1.15. Hemoglobin A1c was 6.9 and diabetes is well controlled. TSH and cortisol were normal. Blood sugars are controlled. She was seen by yesterday and I reviewed the note......pt is considering their intensive OP program. Objective: PHYSICAL EXAM: GENERAL: alert, oriented X 3, Cooperative, NAD ORAL: moist mucosa, no mucosal lesions NECK: No JVD, supple, trachea midline LUNGS: CTA, symmetric chest expansion HEART: RRR, Normal S1 and S2, no rub, no gallop ABDOMEN: soft, NT, ND, BS present, no guarding with palpation EXTREMITIES: no edema, no cyanosis, no calf tenderness SKIN: No rashes, no breakdown NEUROLOGIC: no focal neurologic deficits PSYCH: Tangential thinking with mild flight of ideas, unable to stay on topic but not fidgety - Physical Exam Vital Signs Temp Pulse Resp BP Pulse Ox 97.7 F L 86 16 145/92 H 98 06/28/18 07:31 06/28/18 07:31 06/28/18 07:31 06/28/18 07:31 06/28/18 07:31 Oxygen Delivery Method Room Air Weight: 143 lb 4.807 oz Body Mass Index (BMI) 27.5 Intake and Output for Last 24 Hours 06/26/18 06/27/18 06/28/18 23:59 23:59 23:59 Intake Total 1490 / 1490 850 / 850 150 / 150 Output Total 700 / 700 1200 / 1200 600 / 600 Balance 790 / 790 -350 / -350 -450 / -450 Laboratory Tests Past 24 Hrs 06/27/18 06/27/18 06/27/18 08:50 08:50 08:50 WBC RBC Hgb Hct MCV MCH MCHC RDW RDW Differential Plt Count MPV Immature Gran % (Auto) Neut % (Auto) Lymph % (Auto) Throckmorton % (Auto) Eos % (Auto) Baso % (Auto) Absolute Neuts (auto) Absolute Lymphs (auto) Total Counted Sodium Potassium Chloride Carbon Dioxide Anion Gap BUN Creatinine Estim Creat Clear Calc Est GFR (MDRD) Af Amer Est GFR (MDRD) Non-Af BUN/Creatinine Ratio Glucose Hemoglobin A1c Serum Osmolality Calcium Phosphorus Magnesium TSH Cortisol Urine Osmolality 291 Ur Random Sodium 52 Urine Creatinine 57.30 06/27/18 06/27/18 06/27/18 08:52 08:52 08:52 WBC 9.7 RBC 3.99 L Hgb 11.6 L Hct 34.6 L MCV 86.7 MCH 29.1 MCHC 33.5 RDW 14.9 H RDW Differential 47.7 H Plt Count 397 MPV 9.3 Immature Gran % (Auto) 0.100 Neut % (Auto) 66.3 Lymph % (Auto) 24.0 Throckmorton % (Auto) 8.3 Eos % (Auto) 0.8 Baso % (Auto) 0.5 Absolute Neuts (auto) 6.4 Absolute Lymphs (auto) 2.32 Total Counted Not Reportable Sodium 126 L Potassium 4.6 Chloride 91 L Carbon Dioxide 25.0 Anion Gap 10 BUN 16 Creatinine 1.22 H Estim Creat Clear Calc 31.26 Est GFR (MDRD) Af Amer 56 L Est GFR (MDRD) Non-Af 46 L BUN/Creatinine Ratio 13.1 Glucose 171 H Hemoglobin A1c Serum Osmolality 271 L Calcium 10.1 Phosphorus Magnesium TSH Cortisol Urine Osmolality Ur Random Sodium Urine Creatinine 06/27/18 06/27/18 06/27/18 08:52 08:52 08:52 WBC RBC Hgb Hct MCV MCH MCHC RDW RDW Differential Plt Count MPV Immature Gran % (Auto) Neut % (Auto) Lymph % (Auto) Throckmorton % (Auto) Eos % (Auto) Baso % (Auto) Absolute Neuts (auto) Absolute Lymphs (auto) Total Counted Sodium Potassium Chloride Carbon Dioxide Anion Gap BUN Creatinine Estim Creat Clear Calc Est GFR (MDRD) Af Amer Est GFR (MDRD) Non-Af BUN/Creatinine Ratio Glucose Hemoglobin A1c 6.9 H Serum Osmolality Calcium Phosphorus Magnesium 1.6 TSH 1.71 Cortisol 15.80 Urine Osmolality Ur Random Sodium Urine Creatinine 06/27/18 06/28/18 08:52 07:04 WBC RBC Hgb Hct MCV MCH MCHC RDW RDW Differential Plt Count MPV Immature Gran % (Auto) Neut % (Auto) Lymph % (Auto) Throckmorton % (Auto) Eos % (Auto) Baso % (Auto) Absolute Neuts (auto) Absolute Lymphs (auto) Total Counted Sodium 130 L Potassium 4.3 Chloride 96 L Carbon Dioxide 19.0 L Anion Gap 15 BUN 17 Creatinine 1.15 H Estim Creat Clear Calc 33.16 Est GFR (MDRD) Af Amer 60 Est GFR (MDRD) Non-Af 50 L BUN/Creatinine Ratio 14.8 Glucose 168 H Hemoglobin A1c Serum Osmolality Calcium 9.8 Phosphorus 3.4 Magnesium TSH Cortisol Urine Osmolality Ur Random Sodium Urine Creatinine POC Glucose 06/28/18 06/27/18 06/27/18 07:05 22:27 17:22 POC Glucose 167 H 172 H 165 H 06/27/18 11:59 POC Glucose 191 H Medical Necessity - Tobacco Use Smoking Status: Former smoker Tobacco Use: Cigarettes Assessment/Plan All Active Problems (Last Updated 06/25/18 @ 18:21 by Jose Liu DO) Hyponatremia (Acute) Impressions 1. Hyponatremia-etiology? 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 2. Bipolar disorder with recent joseph-seen at the counseling center and started on asenapine 3. Gastroenteritis versus nausea/vomiting secondary to chronic cannabis use 4. Daily cannabis use-6 tokes or more daily 5. Diabetes mellitus type 2 Continue current medications and attempt to contact the counseling center for advice on changing the dosage of the Waldo. Patient is not suicidal nor is she homicidal Tells me she will not go home until her stops abusing alcohol. Code Visit Inpatient E&M: 65940 Subs Hosp L2
--- NOTE | 2018-06-28 08:05 | NURSING ---
This nurse into room as patient was c/o her right AC area tender and that she has a hematoma. Bruised area noted to right AC, pt reports it is from an IV. Pt requesting ice pack, given. Will monitor.
[2018-06-28] MEDS: Ibuprofen 400 MG Tablet PO ×2 (08:13→14:34)
[2018-06-28] MEDS: metFORMIN HCl 1,000 MG Tablet 1000 MG PO ×2 (08:13→15:52)
[2018-06-28] MEDS: Enoxaparin 40 MG/0.4 ML Syringe SC (08:14)
[2018-06-28 11:15] VITALS: BP 158/85; PULSE 84; RESP 16; TEMP 37; O2SAT 97
[2018-06-28 11:21] LABS: Bedside Glucose 206 mg/dL (70-110)
--- NOTE | 2018-06-28 11:35 | CASEMGMT ---
Addendum entered by Elizabeth Willson 06/28/18 15:35: SW texted physician to see if she would like this worker to set up counseling appointment for pt. SW waiting to hear back. Original Note: Social Work Note MECHANIC AND WELDER updated this worker that pt is requesting to speak to this worker. SW in to speak with pt. Pt states that she is feeling much better and she is ready to go home. Pt states that she misses her and her dog Mumtaz. Pt confirms that she has an appointment at [facility] in the next fwee . SW informed pt that this worker called [facility] yesterday and put pt on cancellation list in the event that someone cancels an appointment and pt can get in sooner. Pt states that the physician told her she was going to call [facility] and set up an appointment for pt in the next few days. Pt states that she was getting ready to begin counseling services at [facility] and physician was going to set up an appointment for her. SW offered to set up a counseling appointment for pt but pt refused. SW asked pt about setting up an intake appointment at [facility]. Pt states that at this time she is not interested in BH at [facility] and will just resume her services at [facility]. SW encouraged pt to follow up with her services at [facility]. Pt thanked this worker. Plan: Pt to discharge home and resume services at [facility] Elizabeth Willson LEAD SPRINKLER, SENIOR ELECTRICAL DESIGN ENGINEER
[2018-06-28 14:00] VITALS: BP 156/95; PULSE 85; RESP 16; TEMP 36.9; O2SAT 98
[2018-06-28] MEDS: LORazepam 1 MG Tablet PO (14:34)
[2018-06-28 16:00] LABS: Bedside Glucose 156 mg/dL (70-110)
--- NOTE | 2018-06-28 18:12 | DCINST_ITS ---
- Discharge Diagnoses Current Active Problems: Current Active and Chronic Problems (Last Updated 06/25/18 @ 18:21 by Jose Liu DO) Hyponatremia (Acute) You will use the following diet at home:: Calorie/Carbohydrate Controlled (specify 1200, 1400, etc), Cardiac - low fat, Other - fluid restriction to 1500 cc daily Your food should be the consistency of: Regular Your liquids should be the consistency of: Regular/Thin Discharge Activity: Return to Normal Activity May resume sexual activity in: No Restrictions Call your doctor if you observe: Fever of 101 or Higher, Inability to urinate, Inability to have a bowel movement, Shortness of breath, Dizziness, Fainting spells, - - inability to sleep, suicidal thoughts or thoughts of hurting someone else, confusion, lethargy, seizures Instructions: Discharge Instructions for Hyponatremia Additional Instructions: 1. The sodium was low in the blood and this lead to confusion and nausea. The reason the sodium was low was you have been drinking too much water and it diluted the sodium in the blood. A low sodium causes confusion and fatigue and can even lead to seizures. You have to limit your water intake for for Tuesday to 1,000 cc daily and then on Tuesday you can increase the fluid restriction to 1,500 cc/day. 2. I talked with Milady at the counselling center and we are increasing the. Asenapine to 10 mg under the tongue every night at bedtime. Pending Tests on Discharge: none Allergies/Adverse Reactions: Allergies codeine Allergy (Verified 06/25/18 15:34) Other Medications to take at Discharge Citalopram [Celexa] 20 mg PO QHS 01/13/15 Liraglutide [Victoza 2-Drew] 0.6 mg SQ DAILY 01/13/15 Lorazepam [Ativan] 1 mg PO TID PRN PRN 01/13/15 Losartan Potassium [Cozaar] 100 mg PO DAILY 01/13/15 Metformin HCl [Glucophage] 1,000 mg PO BIDCM 01/13/15 Omeprazole [Prilosec] 20 mg PO DAILY 01/13/15 Pravastatin [Pravachol] 80 mg PO QHS 01/13/15 Ferrous Sulfate [Iron] 325 mg PO DAILY 06/26/18 Glipizide 10 mg PO BID 06/26/18 Multivitamin [Multiple Vitamins] 1 each PO DAILY 06/26/18 Asenapine Maleate [Saphris] 10 mg SL QHS #30 tab.subl 06/28/18 The following prescriptions were given: Asenapine Maleate [Saphris] 10 mg SL QHS #30 tab.subl Primary Care Physician: Yemi Vasquez MD [Primary Care Provider] - Please follow up with your Primary Care Physician in: 5-7 days Test Results: Test results from this visit will be discussed in further detail at your follow- up appointment, if applicable. Please Follow Up With: counselling center - keep the appt you have scheduled.....they have you on a list to get in sooner if they have a cancellation Proposed Discharge Date: 06/28/18
--- NOTE | 2018-06-28 18:16 | PCM.DC.SUM ---
Discharge Date and Diagnosis Date of Admission: 06/25/18 Date of Discharge: 06/28/18 - Primary Discharge Diagnosis Active and Suspected Problems (Last Updated 06/25/18 @ 18:21 by Jose Liu DO) Hyponatremia (Acute) - due to psychogenic polydipsia BPD with hypomania Suspected Cannabis associated hyperemesis - Secondary Discharge Diagnosis Bipolar disorder Cannabis use Diabetes mellitus type 2-controlled Chronic renal failure stage III Hospital Course and Treatment Behavioral health Operations: None Procedures: None Summary of Care Provided: Ms. Reddy is a 68 YO female with a PMH of bipolar disorder, diabetes mellitus type 2, hyperlipidemia, chronic marijuana use (stated she was saved in [facility] and that she got the demon Marijuana out of her. States she no longer smokes marijuana but she smoked on the day of admission) and psoriasis who presented to the emergency department at [facility] on 06/25/2018 complaining of feeling manic. She also reported that she had a couple episodes of vomiting while at [facility]). She went home and she smoked up but, did not get high and for this reason the [employer] spirit has saved her from the demon marijuana. Vital signs at presentation to the emergency room were temperature 98, pulse rate 77, blood pressure 149/87, respiratory rate 14 and pulse ox on room air was 98%. CBC showed an elevated white blood cell count at 11.3, hemoglobin 11.2 and normal platelets. Serum sodium was 119 with a chloride of 83. BUN was 17 and the creatinine was 0.97. Liver panel was unremarkable. UA was negative for urinary tract infection. Urine drug screen was positive for cannabinoids. She was admitted to the hospital and intravenous fluids were ordered and repeat lab in the AM. Celexa was held because of possible side effects of SIADH and hyponatremia. She was counselled on marijuana use and potential side effect of hyperemesis. The hospital does not have Latuda or Asenapine but the pt told us she no longer takes Latuda. Her brought in the Saphris she was recently started on for joseph. She was prescribed 5 mg nightly. Sodium failed to improve significantly with hydration and the urine was less than maximally dilute. TSH and cortisol were within normal limits. 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 The sodium increased to 130 on 06/28/2018. I was in Contact with Jailene, the nurse practitioner at the counseling center, and she was agreeable to increasing the asenapine (Saphris) to 10 mg at HS. On the date of discharge she denied any suicidal ideation and was not homicidal. She was discharged home with her and has a follow up appt at the counselling center in 3 weeks.....she has been put on the cancellation list incase an earlier appt becomes available. She is going to follow-up with Dr. Yemi Vasquez in 5-7 days. She was given a prescription for Saphris 10 mg and will take 1 sublingual nightly. She was given 30 sublingual tablets. PHYSICAL EXAM: GENERAL: alert, oriented X 3, Cooperative, NAD ORAL: moist mucosa, no mucosal lesions NECK: No JVD, supple, trachea midline LUNGS: CTA, symmetric chest expansion HEART: RRR, Normal S1 and S2, no rub, no gallop ABDOMEN: soft, NT, ND, BS present, no guarding with palpation EXTREMITIES: no edema, no cyanosis, no calf tenderness SKIN: No rashes, no breakdown NEUROLOGIC: no focal neurologic deficits PSYCH: Tangential thinking with mild flight of ideas, unable to stay on topic but not fidgety This note was generated with [employer] dictation software. It may contain incorrect words, spelling, and punctuation that were not noted in checking the note before signing. - Physical Exam Vital Signs Temp Pulse Resp BP Pulse Ox 98.4 F 85 16 156/95 H 98 06/28/18 14:00 06/28/18 14:00 06/28/18 14:00 06/28/18 14:00 06/28/18 14:00 Oxygen Delivery Method Room Air Weight: 143 lb 4.807 oz Body Mass Index (BMI) 27.5 Intake and Output for Last 24 Hours 06/26/18 06/27/18 06/28/18 23:59 23:59 23:59 Intake Total 1490 / 1490 850 / 850 380 / 380 Output Total 700 / 700 1200 / 1200 600 / 600 Balance 790 / 790 -350 / -350 -220 / -220 Laboratory Tests Past 24 Hrs 06/28/18 07:04 Sodium 130 L Potassium 4.3 Chloride 96 L Carbon Dioxide 19.0 L Anion Gap 15 BUN 17 Creatinine 1.15 H Estim Creat Clear Calc 33.16 Est GFR (MDRD) Af Amer 60 Est GFR (MDRD) Non-Af 50 L BUN/Creatinine Ratio 14.8 Glucose 168 H Calcium 9.8 POC Glucose 06/28/18 06/28/18 06/28/18 15:50 11:10 07:05 POC Glucose 156 H 206 H 167 H 06/27/18 22:27 POC Glucose 172 H Discharge Activity: Return to Normal Activity May resume sexual activity in: No Restrictions Call your doctor if you observe: Fever of 101 or Higher, Inability to urinate, Inability to have a bowel movement, Shortness of breath, Dizziness, Fainting spells, - - inability to sleep, suicidal thoughts or thoughts of hurting someone else, confusion, lethargy, seizures Home Medications: Medications to take at Discharge Liraglutide [Victoza 2-Drew] 0.6 mg SQ DAILY 01/13/15 Lorazepam [Ativan] 1 mg PO TID PRN PRN 01/13/15 Losartan Potassium [Cozaar] 100 mg PO DAILY 01/13/15 Metformin HCl [Glucophage] 1,000 mg PO BIDCM 01/13/15 Omeprazole [Prilosec] 20 mg PO DAILY 01/13/15 Pravastatin [Pravachol] 80 mg PO QHS 01/13/15 Ferrous Sulfate [Iron] 325 mg PO DAILY 06/26/18 Glipizide 10 mg PO BID 06/26/18 Multivitamin [Multiple Vitamins] 1 each PO DAILY 06/26/18 Asenapine Maleate [Saphris] 10 mg SL QHS #30 tab.subl 06/28/18 Following Prescrptions Were Given to Patient: Asenapine Maleate [Saphris] 10 mg SL QHS #30 tab.subl Primary Care Physician: Yemi Vasquez MD [Primary Care Provider] - Please follow up with your Primary Care Physician in: 5-7 days Please Follow Up With: counselling center - keep the appt you have scheduled.....they have you on a list to get in sooner if they have a cancellation Patient Instructions: Discharge Instructions for Hyponatremia Disposition: Home Minutes spent on discharge:: 35 Patient Condition:: Stable Medical Necessity - Tobacco Use Smoking Status: Former smoker Tobacco Use: Cigarettes, - - Currently smokes marijuana Meaningful Use Info Meaningful Use Diagnoses (Choose all that apply): None applicable Code Visit Inpatient E&M: 26871 Disch Hosp
== END 2018-06-28 18:22 | disposition home or self-care (01) | DRG 641 ==
LOC: ED 16:15 → MS3 17:44
PROVIDERS: Internal Medicine; Emergency Provider Emergency Medicine; Family Provider Family Medicine; PCP Family Medicine; Visit Provider Internal Medicine
DX: E87.1 Hypo-osmolality and hyponatremia (principal); L40.9 Psoriasis, unspecified; Z87.891 Personal history of nicotine dependence; R55 Syncope and collapse; E11.9 Type 2 diabetes mellitus without complications; Z79.84 Long term (current) use of oral hypoglycemic drugs; F31.9 Bipolar disorder, unspecified; K52.9 Noninfective gastroenteritis and colitis, unspecified; F12.90 Cannabis use, unspecified, uncomplicated
CPT/HCPCS: 36415; 80048; 80053; 80307; 80320; 81001; 82533; 82570; 82962; 83036; 83735; 83930; 83935; 84100; 84300; 84443; 85025; 93005; 99282; A4216; G0480; J7799

== ENCOUNTER 2018-06-30 11:59 | Emergency (ER) | payer MEDICARE, SELFPAY ==
[2018-06-30 12:00] VITALS: BP 169/94; PULSE 107; RESP 18; TEMP 37.2; O2SAT 97; BMI 27.3
[2018-06-30 14:52] LABS: Absolute Lymphocyte Count 3.51 X10^3/ul (0.83-4.51); Basophil# 0.04 X10^3/uL; Basophil% 0.4 % (0-1); Eosinophil# 0.05 X10^3/uL; Eosinophils% 0.5 % (0-5); Hematocrit 33.4 % (37-47); Hemoglobin 11.3 g/dl (12.0-15.0); Lymphocyte # 3.51 X10^3/ul (4.0); Lymphocyte % 37.6 % (19-41); Mean Corp Hgb Conc 33.8 g/gl (32-36); Mean Corpuscular Hgb 29.5 pg (27.0-32.0); Mean Corpuscular Volume 87.2 fL (81-99); Monocyte# 0.73 X10^3/uL; Monocyte% 7.8 % (0-10); Neutrophil # 4.98 X10^3/uL (2.7-7.7); Neutrophil % 53.5 % (47-70); POSITIVE COUNT NO; POSITIVE DIFFERENTIAL NO; POSITIVE MORPHOLOGY NO; Platelet Count 391 K/mm3 (150-450); RBC Distribution Width CV 14.7 % (11.6-14.6); RBC Distribution Width SD 46.1 fl (35.1-43.9); Red Blood Count 3.83 M/mm3 (4.2-5.4); White Blood Count 9.3 K/mm3 (4.4-11.0)
[2018-06-30 15:02] LABS: Anion Gap 12 (5-15); BUN 26 mg/dL (7-18); BUN/Creat Ratio 16.8 RATIO (10-20); Chloride 92 mmol/L (98-107); Creatinine, Serum 1.55 mg/dL (0.55-1.02); EST Glomerular Filtration Rate 35 mL/min (>60); Est Glom Filt Rate - Afr Amer 43 mL/min (>60); Estimated Creatinine Clearance 24.61 ml/min; Glucose 185 mg/dL (74-106); Potassium 4.1 mmol/L (3.5-5.1); Sodium Level 126 mmol/L (136-145)
[2018-06-30 15:23] LABS: Alcohol, Blood (Medical)-Serum < 3.0 mg/dL
--- NOTE | 2018-06-30 15:24 | ED.DCSUM_ITS ---
- ER Visit Summary Date of Service: 06/30/18 Chief Complaint: Sangeetha History of Present Illness: The patient is a 68 F with history of bipolar disorder presents to the emergency department with worsening manic episodes. The patient was recently admitted to the hospital for hyponatremia. It was thought to be secondary to her new psychiatric medications. These were changed. Over the past 4 weeks, the patient has had increasing manic episodes. She is been outwardly hostile to her . He states he is not been sleeping. She does admit to occasional marijuana use. She is also been having hallucinations. She was sent in by the counseling center. Physical Examination: Vital signs reviewed General: Well-nourished, well-developed Head: Normocephalic, atraumatic Eyes: Pupils equal and reactive, extraocular muscles intact Neck, supple, no lymphadenopathy Heart: Regular rate and rhythm Respiratory: No distress, clear bilaterally Abdomen: Soft, nontender, nondistended, no peritoneal signs Back: Nontender Extremities: Nontender, no edema, no cords Skin: Normal color no rash Neuro: Alert and oriented, no focal or lateralizing deficits Test Results: [] Emergency Department Course and Treatment: The patient presents with worsening manic episodes and abnormal behavior. She was recently admitted for hyponatremia and was thought to be secondary to her medications. She had a rather significant workup. Screening labs are obtained. Her sodium was mildly low at 126, but was improved from her prior admission. Her head CT was normal. The patient was given oral Ativan, but she continued to have increasing delusions and abnormal behavior. She actually tried to elope from the emergency department. She was able to be redirected back to the room and was given Geodon and Ativan. She had almost a total change of her personality. She was much more appropriate, calm, cooperative. The patient was seen and evaluated by the counseling center. She is going to be transferred to [facility] for geriatric psychiatry. Family is comfortable with this plan of care. Treatment Plan: [] Disposition: Transfer Impression: 1. Bipolar disorder with sangeetha This note was generated with [employer] software. It may contain incorrect words, spelling, and punctuation that were not noted in review of the chart prior to signing ED Disposition - Plan for ED Patient: Referrals: Yemi Vasquez MD [Primary Care Provider] -
--- NOTE | 2018-06-30 15:26 | CT_ITS ---
STUDY: CT BRAIN WITHOUT CONTRAST REASON FOR EXAM: Female, 68 years old. Confusion. RADIATION DOSAGE (If Supplied By Facility): CTDIvol = ( 44.99 ) mGy, DLP = ( 745.49 ) mGycm TECHNIQUE: Transaxial CT imaging of the brain was performed without administration of intravenous contrast material. Individualized dose optimization techniques were used for this CT. COMPARISON: 01/13/2015. FINDINGS: Normal soft tissue structures. Normal calvarium. Normal size ventricles and extra-axial spaces for the patient's age. Normal white matter tracts of the cerebral hemispheres. Normal basal ganglia and thalami. Normal brainstem. Normal cerebellum. There is no intracranial hemorrhage. There are no findings of an acute ischemic infarction. Normal visualized paranasal sinuses. CT/Brain/Head without Contrast IMPRESSION: Normal unenhanced CT scan of the brain. Electronically Signed: Kofi Arroyo MD at 16:36 EST , Service support ,
[2018-06-30] MEDS: LORazepam 1 MG Tablet PO (16:07)
[2018-06-30 16:48] LABS: Amphetamine Urine VISTA NEGATIVE (<1000 ng/mL); Barbiturate Urine VISTA NEGATIVE (< 200 ng/mL); Benzodiazepine Urine VISTA NEGATIVE (< 200 ng/mL); Cocaine Urine VISTA NEGATIVE (< 300 ng/mL); Ecstacy Urine VISTA NEGATIVE (< 500 ng/mL); Methadone Urine VISTA NEGATIVE (< 300 ng/mL); PCP Urine VISTA NEGATIVE (< 25 ng/mL); THC Urine VISTA POSITIVE (< 50 ng/mL); Vista UDS pH Range 5
[2018-06-30] MEDS: Ziprasidone IM 20 MG/ML VIAL IM (18:39)
[2018-06-30] MEDS: LORazepam 2 MG/ML Syringe IM (18:39)
--- NOTE | 2018-06-30 18:47 | ED.RN ---
RN HEARD PATIENT SCREAMING AN THROW SOMETHING. ED PHYSICIAN ALSO CAME TO BEDSIDE. PATIENT WAS SCREAMING AND UNABLE TO DE-ESCALATE. PT CONTINUED TO YELL AT STAFF AND THREATEN TO LEAVE SINCE SHE GOT DRESSED. PT REFUSED TO GET INTO BED AND BACK INTO MAX. SECURITY CALLED PATIENT WAS LEAVING ROOM, SECURITY FOLLOWED PATIENT WITH ANOTHER RN AND GET HAVE PATIENT COME BACK TO HER ROOM. PT CONTINUED TO YELL AT STAFF, CURSE, AND THREATEN TO LEAVE. PT DID COOPERATE AND GET UNDRESSED ALL HER BELONGINGS WERE REMOVED FROM THE ROOM. PT WAS COOPERATIVE RN GAVE TO IM SHOTS IN HER RIGHT ARM.
[2018-06-30 19:00] VITALS: BP 118/95; PULSE 96; RESP 17; O2SAT 97
--- NOTE | 2018-06-30 19:39 | CM.ED ---
SOCIAL WORK NOTE UPDATED BY SENIOR GROUP MANAGER, ESTEBAN. REFERRAL MADE TO [facility] AT THIS TIME FOR [facility] PSYCH PLACEMENT. AWAITING BED CONFIRMATION. ALVARO IHCKS, BAG SHOP WORKER, ORACLE SOA ARCHITECT.
[2018-06-30] MEDS: metFORMIN HCl 1,000 MG Tablet 1000 MG PO (21:07)
[2018-06-30] MEDS: Pravastatin 80 MG Tablet PO (21:08)
[2018-06-30] MEDS: glipiZIDE 5 MG Tablet 10 MG PO (21:08)
[2018-06-30 21:51] VITALS: BP 117/92; PULSE 75; RESP 14; O2SAT 99
--- NOTE | 2018-06-30 21:55 | ED.RN ---
Report called to Kristine at [facility]. She requested [facility] home med brought to [facility]. Update called to , Wyatt, he is no going to come until Tuesday and does not want to bring Saphris up as it is not working. [facility] updated.
== END 2018-06-30 22:08 | disposition short-term general hospital (02) ==
LOC: ED 15:39
PROVIDERS: Emergency Provider Emergency Medicine; Family Provider Family Medicine; PCP Family Medicine
DX: F30.9 Manic episode, unspecified (principal); E87.1 Hypo-osmolality and hyponatremia; R11.0 Nausea; Z79.84 Long term (current) use of oral hypoglycemic drugs; Z79.899 Other long term (current) drug therapy
CPT/HCPCS: 70450; 80048; 80307; 80320; 85025; 96372; 99284; G0480; J3486

== ENCOUNTER 2018-08-05 11:37 | Emergency (ER) | payer MEDICARE, SELFPAY ==
[2018-08-05 11:40] VITALS: BP 149/81; PULSE 85; RESP 17; TEMP 36.6; O2SAT 97; BMI 26.5
--- NOTE | 2018-08-05 12:29 | RAD_ITS ---
STUDY: X-RAY - RIGHT SHOULDER REASON FOR EXAM: Female, 68 years old. Injury. TECHNIQUE: 4 view(s) of the shoulder. COMPARISON: None. FINDINGS: There is mild degenerative arthrosis of the glenohumeral articulation. There is hypertrophic osteoarthrosis of the acromioclavicular joint with inferior osseous spur formation. Normal acromion. There is no acute fracture, dislocation or destructive osseous pathology. Normal humeral head and visualized proximal humerus. The soft tissue structures are unremarkable. Normal visualized pulmonary apex. RAD/Shoulder min 2 Views IMPRESSION: Degenerative changes of right shoulder without fracture or dislocation. Electronically Signed: Nik Tsai DO at 13:54 EDT Tel [phone], Service support ,
[2018-08-05] MEDS: Cephalexin 250 MG Capsule 500 MG PO (12:35)
[2018-08-05] MEDS: Ibuprofen 600 MG Tablet PO (12:35)
--- NOTE | 2018-08-05 13:44 | ED.VISSUMM ---
- ER Visit Summary Date of Service: 08/05/18 Chief Complaint: Left great toe pain History of Present Illness: The patient is a 68 F left great toe pain past few weeks. No injuries. No fevers. History of diabetes. No previous similar symptoms in the past. Addition reports increasing continued right shoulder pain reports was hospitalized a week ago had a fall reported right shoulder fracture was placed in a sling and swath however states was too uncomfortable therefore took it off. No new injuries. She was not hospitalized here. Physical Examination: General: Alert and oriented ?3, no acute distress HEENT: Normocephalic, atraumatic. Moist mucosa membranes Neck: supple, nontender. Cardiovascular: Regular rate and rhythm, no murmurs Respiratory: Normal breath sounds, symmetric, no distress Abdomen: Soft, nontender, nondistended Extremities: Right upper extremity: Tender palpation proximal shoulder with no deformities. Left lower extremity: Great toe, paronychia medial aspect great toe with mild erythema, no streaking. Skin intact. Neuro: no focal neurological deficits. Psych: No suicidal homicidal ideations Test Results: Right shoulder x-ray: No acute process Emergency Department Course and Treatment: Discussed with patient and continued pain if she had a fracture she needs to be in a sling and swath. Discussed with patient due to her pain and no imaging here can recheck shoulder x-ray here for evaluation she agreed. X-ray reviewed by myself does not show any shoulder fracture for which she reports. However her toe examination concerns for paronychia. Discussed incision and drainage for which she agreed. Started on Keflex due to diabetes history, ibuprofen given. Incised and drained with no complications. Wound care discussed, follow-up with PCP. Prescriptions written. All questions answered. Treatment Plan: [] Disposition: Discharge Impression: 1. Left great toe paronychia status post I&D 2. Right shoulder pain This note was generated with [employer] dictation software. It may contain incorrect words, spelling, and punctuation that were not noted in review of the chart prior to signing ED Disposition - Plan for ED Patient: Disposition: Home or Assisted Living Diagnosis: Paronychia of great toe, left, Right shoulder pain Instructions: ED Paronychia Ch, ED Shoulder Pain [facility] Prescriptions: Ibuprofen 600 mg PO Q6H PRN PRN #20 tablet PRN Reason: Pain Cephalexin [Keflex] 500 mg PO Q6 #40 capsule Referrals: Yemi Vasquez MD [Primary Care Provider] - 3-5 Days
[2018-08-05 13:58] VITALS: PULSE 70; RESP 15
--- NOTE | 2018-08-05 13:58 | ED.RN ---
UPON ARRIVAL TO ED I WAS APPROACH BY THIS INDIVIDUAL IN THE [facility] [address] BECAUSE SHE HAD NOT BEEN SEEN YET. PT WAS WALKED BACK TO HER ROOM AND ATTEMPT TO MEET HER NEEDS WAS MADE. PT WAS ANGRY AND AGGRESSIVE TOWARDS MYSELF AND MY STUDENT. SHE WAS INFORMED THAT THE DR WAS BUSY AND WOULD BE IN TO EVALUATE HER SOON THEY COULD. PT WAS IN THE DEPARTMENT FOR UNDER 45 MIN. PRIMARY RN NOTIFIED AND AGRESSIVE INDICATOR PLACED ON CHART. MULTIPLE RN HAVE ANSWERED PT CALL LIGHT. BASIC NEEDS HAVE BEEN MEET. PT CONTINUES TO VERBAL ABUSE RN AND WALKED OUT TO THE MAIN RN STATION. Alessandra FERNANDES, RN [phone]
--- NOTE | 2018-08-05 16:08 | CM.UR ---
Received referral for [facility]. [facility] so faxed a referral to [facility] and asked them to contact patient and their PCP about C follow up. Daniel Gibson RN, CCM.
== END 2018-08-05 14:05 | disposition home or self-care (01) ==
PROVIDERS: Emergency Provider Emergency Medicine; Family Provider Family Medicine; PCP Family Medicine
DX: L03.032 Cellulitis of left toe (principal); M25.511 Pain in right shoulder; E11.9 Type 2 diabetes mellitus without complications; I10 Essential (primary) hypertension; Z79.84 Long term (current) use of oral hypoglycemic drugs; Z79.899 Other long term (current) drug therapy; Z87.891 Personal history of nicotine dependence
CPT/HCPCS: 10060; 73030; 99285

== ENCOUNTER 2018-09-27 11:22 | Emergency (ER) | payer MEDICARE, SELFPAY ==
[2018-09-27] VITALS (7 sets, daily range): BP systolic 137–177; BP diastolic 81–105; PULSE 72–88; RESP 11–21; TEMP 36.2; O2SAT 98–100; BMI 24.0
--- NOTE | 2018-09-27 11:44 | ED.RN ---
PT YOANE, YELLING AT THIS RN. EDUCATED PT THAT SHE SHOULD REMAIN NPO AT THIS TIME, PT CHEWING ON APPLE. PT SCREAMS THAT SHE IS NOT EATING. PT BECAME IRATE WHEN ASKED QUESTIONS REGARDING HEAD INJURY DURING FALL. TOLD THIS RN TO LEAVE ROOM.
--- NOTE | 2018-09-27 11:52 | RAD_ITS ---
STUDY: X-RAY - RIGHT SHOULDER REASON FOR EXAM: Fall. TECHNIQUE: 2 view(s) of the shoulder. COMPARISON: Radiographs 10/05/2018. FINDINGS: There is anterior dislocation of the glenohumeral articulation. There is mild acromioclavicular arthrosis. Normal acromion. There is no demonstrated humeral fracture. The soft tissue structures are unremarkable. Normal visualized pulmonary apex. RAD/Shoulder min 2 Views IMPRESSION: Anterior dislocation of the glenohumeral joint. Electronically Signed: Pal Staley MD at 12:55 EDT Tel , Service support ,
--- NOTE | 2018-09-27 12:00 | CM.ED ---
SOCIAL WORK INFORMANT: JAKOB ACVEEDO REASON FOR REFERRAL: RESOURCES FOR SPOUSE NURSE MET WITH THIS WORKER TO UPDATE ON PATIENT'S BEHAVIORS. NURSE STATES PATIENT'S NEEDS SUPPORT IN CARING/COPING WITH PATIENT'S BEHAVIORS. MET WITH SPOUSE IN [facility]. INTRODUCED ROLE AND REASON FOR REFERRAL. SPOUSE REPORTS LONG HX OF MENTAL HEALTH FOR PATIENT. PATIENT WITH BIPOLAR DISORDER. SPOUSE FEELS PATIENT HAS BEEN MANIC FOR MANY MONTHS. INFORMED PATIENT HAS BEEN SELF MEDICATING WITH MARIJUANA AND HAS BEEN NON COMPLIANT WITH MEDICATIONS. SPOUSE STATES TOOK PATIENT OUT OF [facility] BECAUSE PATIENT PROMISED TO BE COMPLIANT AT HOME, ONCE HOME PATIENT WENT BACK TO [place]. SPOUSE REPORTS HAS SPOKEN WITH COUNSELING CENTER PREVIOUSLY AND WAS TOLD PATIENT IS NOT APPROPRIATE FOR INPATIENT PSYCH PLACEMENT AT THIS TIME. SPOUSE STATES THERE WAS A TIME WHEN POLICE WERE AT THE HOUSE SEVERAL TIMES A WEEK. DISCUSSED ADULT PROTECTIVE SERVICE REFERRAL D/T CONCERNS FOR SPOUSE IN THE HOME. SPOUSE VERBALIZED UNDERSTANDING. DISCUSSED POSSIBLE COUNSELING SERVICES FOR SPOUSE. RESOURCES PROVIDED. CALL TO [facility]ULT PROTECTIVE [facility]. LEFT MESSAGE FOR JAMMIE. AWAITING CALL BACK. 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
[2018-09-27] MEDS: Ibuprofen 600 MG Tablet PO (12:03)
--- NOTE | 2018-09-27 12:17 | ED.DCSUM_ITS ---
- ER Visit Summary Date of Service: 09/27/18 Chief Complaint: Right shoulder injury History of Present Illness: The patient is a 68 F who was on her way to the patient appointment coordinator office today when she tripped over a small lip on the floor. She fell onto the right shoulder. No loss of consciousness. She notes pain in the right shoulder and feels that it may be dislocated. She believes she hit her head into the right forehead area. No loss of consciousness. Has been acting appropriate. Not on blood thinners. Physical Examination: Afebrile vital signs are stable Gen: Well-nourished well-developed Head: Normocephalic atraumatic Eyes: Perrl EOMI ENT: TMs clear no rhinorrhea moist mucous membranes Neck: Supple no lymphadenopathy no JVD nontender CVS: Regular rate rhythm no murmurs normal S1-S2 Respiratory: No distress clear to auscultation bilaterally chest nontender Abdomen: Soft nontender nondistended normal bowel sounds no masses Back: Nontender Extremity: Reports tenderness to palpation over the proximal humerus no clavicular deformity. No AC step-off. Probable anterior dislocation. Neurovascular intact distally Skin: Normal color no rash no breaks in the skin Neuro: alert orientated ?3 CN II-XII intact normal strength sensation Psych: Irritable Test Results: Shoulder films were obtained. This demonstrated a dislocation. Emergency Department Course and Treatment: Patient provided informed consent for the use of propofol for procedural sedation. She received a total of 50 mg bolus followed by 25 mg bolus to achieve adequate sedation. Supple traction reduce the shoulder without difficulty. She was placed in a sling and swath and was allowed to recover. There is no hypotension apnea hypoxemia or hypercarbia noted during the procedure. Reduction films obtained. Follow-up with orthopedics. Impression: 1. Right anterior shoulder dislocation 2. Residual sedation by emergency physician 3. Induction of dislocation by emergency physician This note was generated with [employer] dictation software. It may contain incorrect words, spelling, and punctuation that were not noted in review of the chart prior to signing ED Disposition - Plan for ED Patient: Disposition: Home or Assisted Living Instructions: ED Dislocation Shoulder Redu Prescriptions: Hydrocodone Bitart/Apap 5-325 [[place] 5MG-325MG] 1 tab PO Q6H PRN PRN 3 Days #10 tab PRN Reason: Pain Referrals: Vicente Vasquez MD [STAFF PHYSICIAN] - (call to arrange follow up)
--- NOTE | 2018-09-27 12:33 | RAD_ITS ---
STUDY: X-RAY - RIGHT SHOULDER REASON FOR EXAM: Post reduction. TECHNIQUE: 2 view(s) of the shoulder. COMPARISON: Prereduction radiographs. FINDINGS: There is reduction of the anterior glenohumeral dislocation. There is mild acromioclavicular arthrosis. Normal acromion. Normal humeral head and visualized proximal humerus. The soft tissue structures are unremarkable. Normal visualized pulmonary apex. RAD/Shoulder min 2 Views IMPRESSION: Reduction of the anterior glenohumeral dislocation. Electronically Signed: Pal Staley MD at 14:33 EDT Tel , Service support ,
[2018-09-27] MEDS: fentaNYL 100 MCG/2 ML Ampul 50 MCG IV (13:00)
[2018-09-27] MEDS: 0.9% Normal Saline 1,000 ML 150 ML IV (13:18)
[2018-09-27] MEDS: Propofol 200 MG/20 ML Vial IV BOLUS (13:22)
--- NOTE | 2018-09-27 15:28 | CM.ED ---
SOCIAL WORK RECEIVED CALL BACK FROM [facility] WITH ADULT PROTECTIVE SERVICES. REPORT COMPLETED. 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
== END 2018-09-27 14:38 | disposition home or self-care (01) ==
PROVIDERS: Emergency Provider Emergency Medicine; Family Provider Family Medicine; PCP Family Medicine
DX: S43.004A Unspecified dislocation of right shoulder joint, initial encounter (principal); S09.90XA Unspecified injury of head, initial encounter; W01.10XA Fall on same level from slipping, tripping and stumbling with subsequent striking against unspecified object, initial encounter; Y93.9 Activity, unspecified; Y92.9 Unspecified place or not applicable; Y99.9 Unspecified external cause status; E11.9 Type 2 diabetes mellitus without complications; F31.9 Bipolar disorder, unspecified; Z79.84 Long term (current) use of oral hypoglycemic drugs; Z79.899 Other long term (current) drug therapy; Z87.891 Personal history of nicotine dependence
CPT/HCPCS: 23650; 73030; 96361; 96374; 96375; 99284; J7030; A4216

== ENCOUNTER 2018-10-25 08:00 | Emergency (ER) | payer MEDICARE, SELFPAY ==
[2018-09-27 11:23] VITALS: BMI 24.0
[2018-10-25 08:01] VITALS: BP 156/105; PULSE 97; RESP 18; TEMP 36.6; O2SAT 99; BMI 23.4
--- NOTE | 2018-10-25 08:18 | ED.VISSUMM ---
- ER Visit Summary Date of Service: 10/25/18 Chief Complaint: Depression History of Present Illness: The patient is a [address] Yemi Vasquez and Dr. Jarvis. Patient is a poor informant and has a convoluted history. She does report that she is under stress because my of 40 years kicked me out and we are getting a divorce. However she then reports that she has been living with her boyfriend. She got a kitten and he is not able to have pets and because of that I am homeless. States that she saw Dr. Jarvis yesterday and no changes were made to her medications. She went to the [facility] yesterday and had a poor interaction with them and was not able to stay there last night. She states that she stayed with a friend last night. Patient reports that she called the counseling center this morning because I am feeling sad. She denies any suicidal or homicidal ideation. No auditory or visual hallucinations. On review of systems she reports that she is weak because she has been walking around like crazy. Physical Examination: Vitals: Stable. Afebrile. General: Well-nourished and well-developed. Head: Normocephalic atraumatic. Neck: Supple, no lymphadenopathy. No JVD. Nontender. Cardiovascular: Regular rate and rhythm. No murmurs. Respiratory: No respiratory distress. Clear to auscultation bilaterally. Abdominal: Soft, nontender, nondistended, normal bowel sounds. No guarding, rebound, or peritoneal signs. Back: Nontender. Extremities: Nontender, no edema. Skin: Normal color, no rash. Neurologic: Alert and oriented ?3. Cranial nerves II through XII are intact. Normal strength and sensation. Mental status exam: Patient appears their stated age. Good posture and grooming. Good eye contact. Normal rate, volume, and latency of speech. Very labile. No suicidal or homicidal ideation. No auditory or visual hallucinations. Flow of thought is logical. Insight and judgment is fair. Test Results: CBC is normal. Chem-7 is marked for potassium 3.2 and glucose of 200. UA is normal. Tox screen shows marijuana. Blood alcohol level is negative. UA is negative. Emergency Department Course and Treatment: Patient is ambulated in the emergency department. She is in no distress. Patient became combative and aggressive in the emergency department. She was given Geodon IM with little help. She was given Benadryl and Ativan p.o. She is now resting comfortably. Treatment Plan: The patient was seen by the counseling center. They have arranged for be to transferred to [facility]. Disposition: Transferred in improved. Impression: 1. Depression. 2. Aggressive behavior. This note was generated with [employer] dictation software. It may contain incorrect words, spelling, and punctuation that were not noted in review of the chart prior to signing ED Disposition - Plan for ED Patient: Referrals: Yemi Vasquez MD [Primary Care Provider] -
--- NOTE | 2018-10-25 08:24 | ED.DCSUM_ITS ---
- ER Visit Summary Date of Service: 10/25/18 Chief Complaint: Depression History of Present Illness: The patient is a [address] Yemi Vasquez and Dr. Jarvis. Patient is a poor informant and has a convoluted history. She does report that she is under stress because my of 40 years kicked me out and we are getting a divorce. However she then reports that she has been living with her boyfriend. She got a kitten and he is not able to have pets and because of that I am homeless. States that she saw Dr. Jarvis yesterday and no changes were made to her medications. She went to the [facility] yesterday and had a poor interaction with them and was not able to stay there last night. She states that she stayed with a friend last night. Patient reports that she called the counseling center this morning because I am feeling sad. She denies any suicidal or homicidal ideation. No auditory or visual hallucinations. On review of systems she reports that she is weak because she has been walking around like crazy. Physical Examination: Vitals: Stable. Afebrile. General: Well-nourished and well-developed. Head: Normocephalic atraumatic. Neck: Supple, no lymphadenopathy. No JVD. Nontender. Cardiovascular: Regular rate and rhythm. No murmurs. Respiratory: No respiratory distress. Clear to auscultation bilaterally. Abdominal: Soft, nontender, nondistended, normal bowel sounds. No guarding, rebound, or peritoneal signs. Back: Nontender. Extremities: Nontender, no edema. Skin: Normal color, no rash. Neurologic: Alert and oriented ?3. Cranial nerves II through XII are intact. Normal strength and sensation. Mental status exam: Patient appears their stated age. Good posture and grooming. Good eye contact. Normal rate, volume, and latency of speech. Very labile. No suicidal or homicidal ideation. No auditory or visual hallucinati ons. Flow of thought is logical. Insight and judgment is fair. Test Results: CBC is normal. Chem-7 is marked for potassium 3.2 and glucose of 200. UA is normal. Tox screen shows marijuana. Blood alcohol level is negative. UA is negative. Emergency Department Course and Treatment: Patient is ambulated in the emergency department. She is in no distress. Patient became combative and aggressive in the emergency department. She was given Geodon IM with little help. She was given Benadryl and Ativan p.o. She is now resting comfortably. Treatment Plan: The patient was seen by the counseling center. They have arranged for be to transferred to [facility]. Disposition: Transferred in improved. Impression: 1. Depression. 2. Aggressive behavior. This note was generated with [employer] dictation software. It may contain incorrect words, spelling, and punctuation that were not noted in review of the chart prior to signing ED Disposition - Plan for ED Patient: Referrals: Yemi Vasquez MD [Primary Care Provider] -
[2018-10-25 08:48] LABS: Absolute Lymphocyte Count 2.09 X10^3/ul (0.83-4.51); Absolute Neutrophil Count 3.7 X10^3/uL (2.0-7.7); Basophil# 0.03 X10^3/uL; Basophil% 0.5 % (0-1); Eosinophil# 0.16 X10^3/uL; Eosinophils% 2.5 % (0-5); Hematocrit 40.5 % (37-47); Hemoglobin 13.4 g/dl (12.0-15.0); Lymphocyte # 2.09 X10^3/ul (4.0); Lymphocyte % 32.5 % (19-41); Mean Corp Hgb Conc 33.1 g/gl (32-36); Mean Corpuscular Hgb 29.5 pg (27.0-32.0); Monocyte% 7.8 % (0-10); Neutrophil # 3.65 X10^3/uL (2.7-7.7); Neutrophil % 56.5 % (47-70); POSITIVE COUNT NO; POSITIVE DIFFERENTIAL NO; POSITIVE MORPHOLOGY NO; Platelet Count 307 K/mm3 (150-450); RBC Distribution Width CV 13.7 % (11.6-14.6); Red Blood Count 4.55 M/mm3 (4.2-5.4); White Blood Count 6.4 K/mm3 (4.4-11.0)
[2018-10-25 08:56] LABS: Anion Gap 6 (5-15); BUN 15 mg/dL (7-18); BUN/Creat Ratio 16.2 RATIO (10-20); Calcium,Total 9.8 mg/dL (8.5-10.1); Chloride 105 mmol/L (98-107); Creatinine, Serum 0.92 mg/dL (0.55-1.02); EST Glomerular Filtration Rate 64 mL/min (>60); Est Glom Filt Rate - Afr Amer 77 mL/min (>60); Estimated Creatinine Clearance 41.45 ml/min; Glucose 200 mg/dL (74-106); Potassium 3.2 mmol/L (3.5-5.1); Sodium Level 138 mmol/L (136-145)
[2018-10-25 08:56] LABS: Bedside Glucose 200 mg/dL (70-110)
[2018-10-25 09:08] LABS: Amphetamine Urine VISTA NEGATIVE (<1000 ng/mL); Barbiturate Urine VISTA NEGATIVE (< 200 ng/mL); Benzodiazepine Urine VISTA NEGATIVE (< 200 ng/mL); Cocaine Urine VISTA NEGATIVE (< 300 ng/mL); Ecstacy Urine VISTA NEGATIVE (< 500 ng/mL); Methadone Urine VISTA NEGATIVE (< 300 ng/mL); PCP Urine VISTA NEGATIVE (< 25 ng/mL); THC Urine VISTA POSITIVE (< 50 ng/mL); Vista UDS pH Range 6
[2018-10-25 09:18] LABS: Alcohol, Blood (Medical)-Serum < 3.0 mg/dL
[2018-10-25 10:41] LABS: Bacteria 0 SEEN /hpf (None Seen); Mucous, Urine 0 SEEN /hpf (<or=2+); Red Blood Cells-Urine 0 SEEN /hpf (0-5); White Blood Cells 0 SEEN /hpf (0-5)
[2018-10-25 10:53] LABS: Color, Urine Yellow (Yellow); Glucose, Dipstick 100 mg/dl (Normal); Ketone-Dipstick Negative (Negative); Leukocyte Esterase-Dipstick Negative /ul (Negative); Nitrite-Dipstick Negative (Negative); Occult Blood-Urine Negative /ul (Negative); Protein-Dipstick 30 mg/dl (Negative); Urine Bilirubin Dipstick Negative (Negative); Urine Clarity Sl. Cloudy (Clear); Urine Urobilinogen Normal (Normal); Urine pH 6.5 (5.0 - 8.0)
[2018-10-25 10:56] LABS: Squamous Epithelial Cells - UA 0-5 SEEN /hpf (5-10)
--- NOTE | 2018-10-25 11:45 | CM.ED ---
Social Work Collaborated with Dr. Crews. Dr. Crews agreeable to social work seeing patient for mental health needs and possible housing assistance. Spoke with patient in room. Patient present as well as patient friend, Martha and , Emmett. Patient agreeable to this hospice social worker speaking with patient and with talking in front of both Martha and Emmett. Patient reporting to currently be homeless for the past 2 days. This hospice social worker inquired as to where patient was living prior, patient reporting to have been living with boyfriend Wellington. This hospice social worker asking for clarification of relationship status between Emmett and patient and Christopher and patient. Patient reporting to currently be working on a disillusionment with Emmett and to have been in a dating relationship with Wellington for the past 3 weeks. Patient reporting to have been to Emmett for 40 years. Patient reporting to not be living with Wellington due to Wellington needing rest and that per patient I am not rest. Patient also identifying several friends and family members that patient has stayed with in the past. When this hospice social worker inquired about patient being able to stay with a friend or family member patient stating that this is not possible. This hospice social worker attempting to problem solve with patient, patient declining to participate in conversation about housing and became agitated. This hospice social worker able to deescalate patient and move on to other topics. This hospice social worker inquiring about patient mental health background. Patient reporting to have mental health issues for the past 40 years. When this hospice social worker asked if patient has any mental health diagnosis patient stating no and that you can't change a persons personality. Emmett then interjecting and reporting that patient does have a diagnosis of Bi-polar, patient began yelling at Emmett and wanting Emmett to stop talking. Emmett continued to attempt to talk with this hospice social worker as patient became more agitated, this hospice social worker asking Emmett to leave the room in order to deescalate patient. Patient reporting to currently take Lorazepam 1-3 times a day depending on how the day is going. This hospice social worker exploring patient community support system. Patient reporting to utilize the counseling center, [facility]. Patient reporting to not be connected with a correctional case manager but to be interested in case management. Patient agreeable to this hospice social worker contacting the counseling center to make recommendation for case management/counseling services as patient has been primarily using the crisis line. This hospice social worker broaching topic of housing again as this continues to patient patients main complaint. Patient declining to talk any further about housing at this time and reporting that [facility] is working with patient. This hospice social worker inquiring as to who Lamont is. Patient reporting [facility] from crisis. This hospice social worker voicing understanding. Patient reporting that [facility] is to return to speak further with patient. This hospice social worker was no aware that crisis of involved in case. This hospice social worker finishing conversation with patient and left patient room. This hospice social worker passing Lamont in the [address]. [facility] reporting to be working with patient and that patient was sent over from the counseling center. Crisis to continue to follow as this time. Patient did deny any suicidal or homicidal ideations during conversation. Emmett (patient spouse) stopped this hospice social worker in the cortes and reporting that patient was in an inpatient psychiatric facility in June and July. Tor GUARDADO, AGUSTÍN
[2018-10-25] MEDS: Ziprasidone IM 20 MG/ML VIAL IM (14:00)
--- NOTE | 2018-10-25 14:06 | ED.RN ---
[id number] THIS NURSE ATTEMPTED TO OBTAIN VITAL SIGNS AND ASKED PT IF THAT WAS OKAY, PT STARTED YELLING AND SCREAMING AT THIS NURSE AND TOLD ME TO LEAVE THE ROOM. DR. CHATTERJEE WENT IN TO SEE THE PT AND ORDERED MEDICATION. PT NOW CAME OUT TO THE NURSES STATION AND APOLOGIZED TO THIS NURSE FOR THE WAY SHE SPOKE EARLIER.
[2018-10-25 14:20] LABS: Bedside Glucose 267 mg/dL (70-110)
[2018-10-25] MEDS: Insulin Lispro 100 UNIT/ML INSULN.PEN 10 UNIT SC (14:40)
[2018-10-25] MEDS: LORazepam 1 MG Tablet PO (15:44)
[2018-10-25] MEDS: DiphenhydrAMINE 25 MG Capsule 50 MG PO (15:44)
[2018-10-25 16:12] VITALS: RESP 12
[2018-10-25 16:22] VITALS: BP 140/98; PULSE 80; RESP 16; O2SAT 100
--- NOTE | 2018-10-26 18:06 | CM.ED ---
SOCIAL WORK RECEIVED CALL FROM DANIEL VILLALOBOS WITH THE COUNSELING CENTER. PER DANIEL, RECEIVED VOICEMAIL FROM VICE PRESIDENT LENDING, MARCELLUS REGARDING RECOMMENDATION FOR CASE MANAGEMENT. DANIEL JUAN WILL REQUEST CASE MANAGEMENT TO DR. HENDRIX ( PHYSICIAN HAS TO OK CASE MANAGEMENT). 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
== END 2018-10-25 17:42 ==
LOC: ED 08:33
PROVIDERS: Emergency Provider Emergency Medicine; Family Provider Family Medicine; PCP Family Medicine
DX: F32.9 Major depressive disorder, single episode, unspecified (principal); F41.9 Anxiety disorder, unspecified; E11.9 Type 2 diabetes mellitus without complications; Z59.0 Homelessness; Z72.0 Tobacco use; Z79.84 Long term (current) use of oral hypoglycemic drugs; Z79.899 Other long term (current) drug therapy
CPT/HCPCS: 36415; 80048; 80307; 80320; 81001; 82962; 85025; 96372; 99284; G0480; J3486

== ENCOUNTER → 2018-11-24 14:09 | Outpatient (CLI) | payer MEDICARE, SELFPAY ==
[2018-10-25 08:01] VITALS: BMI 23.4
[2018-11-24 16:34] LABS: ALB/GLOB Ratio 0.7 RATIO (0.9-2.4); AST(SGOT) 15 U/L (15-37); Alanine Aminotransfer ALT/SGPT 19 U/L (13-56); Albumin, Serum 3.2 g/dL (3.2-5.0); Alkaline Phosphatase 93 U/L (45-117); Anion Gap 8 (5-15); BUN 24 mg/dL (7-18); BUN/Creat Ratio 18.8 RATIO (10-20); Calcium,Total 9.8 mg/dL (8.5-10.1); Chloride 101 mmol/L (98-107); Creatinine, Serum 1.28 mg/dL (0.55-1.02); EST Glomerular Filtration Rate 44 mL/min (>60); Est Glom Filt Rate - Afr Amer 53 mL/min (>60); Globulin 4.4 g/dL (2.2-4.2); Glucose 347 mg/dL (74-106); Potassium 4.1 mmol/L (3.5-5.1); Protein, Total 7.6 g/dL (6.4-8.2); Sodium Level 136 mmol/L (136-145); Thyroid Stim Hormone (TSH) 2.31 uIU/mL (0.358-3.74)
[2018-11-24 16:46] LABS: Hemoglobin A1c 9.3 % (4.2-6.3)
== END ==
PROVIDERS: Family Provider Family Medicine; PCP Family Medicine; Visit Provider Family Medicine
DX: E11.65 Type 2 diabetes mellitus with hyperglycemia (principal); Z79.899 Other long term (current) drug therapy
CPT/HCPCS: 36415; 80053; 80178; 83036; 84443

== ENCOUNTER → 2019-01-16 13:42 | Outpatient (CLI) | payer MEDICARE, SELFPAY ==
--- NOTE | 2019-01-16 13:44 | BI_ITS ---
MAMMOGRAPHY - BILATERAL SCREENING REASON FOR EXAM: Female, 68 years old. Routine annual screening examination. PERTINENT HISTORY: Personal history of breast cancer. Aunt with breast cancer. Prior left lumpectomy and radiation treatment. Prior left stereotactic breast biopsies. TECHNIQUE: Digital bilateral breast geoffrey (3D mammographic acquisition) in the CC and MLO projections. 2-D mediolateral oblique (MLO) and craniocaudad (CC) views of both breasts were obtained. CAD: Full Field Digital Mammography with Computer Added Detection was performed. COMPARISON: Comparison is made with prior examination of January 13, 2018 and January 07, 2017. FINDINGS: Breast Composition: There are scattered areas of fibroglandular density. There are no dominant masses or suspicious calcifications. Postoperative deformity and decreased size of the left breast as compared to the right side secondary to prior lumpectomy. A tissue clip marker is seen in the upper medial aspect of the left breast. Dense calcifications are once again seen in the retroareolar region with area of architectural distortion. No other significant abnormalities are identified. There has been no significant change since the prior study. BI/SCREEN MAMM (CAD) W/GEOFFREY BILAT IMPRESSION: Stable bilateral screening mammogram. Yearly follow-up mammogram recommended. (A) ASSESSMENT CATEGORY: BIRADS Category 2: Benign. A letter regarding these results will be sent to the patient by the facility within 30 days. Approximately 10% of breast cancers are not detected by mammography. A normal mammogram should not delay biopsy of a clinically suspicious abnormality. [id number] Electronically Signed: Yoan Agrawal, at 15:32 EDT , Service support ,
== END ==
PROVIDERS: Family Provider Family Medicine; PCP Family Medicine; Referring Provider Family Medicine; Visit Provider Family Medicine
DX: Z12.31 Encounter for screening mammogram for malignant neoplasm of breast (principal)
CPT/HCPCS: 77063; 77067

== ENCOUNTER → 2019-01-23 13:52 | Outpatient (CLI) | payer MEDICARE, SELFPAY ==
[2019-01-23 15:32] LABS: Creatinine, Serum 1.24 mg/dL (0.55-1.02); EST Glomerular Filtration Rate 46 mL/min (>60); Est Glom Filt Rate - Afr Amer 55 mL/min (>60); Thyroid Stim Hormone (TSH) 7.72 uIU/mL (0.358-3.74)
== END ==
PROVIDERS: Family Provider Family Medicine; PCP Family Medicine; Referring Provider Family Medicine; Visit Provider Psychiatry & Neurology Psychiatry
DX: Z79.899 Other long term (current) drug therapy (principal)
CPT/HCPCS: 36415; 80178; 82565; 84443

== ENCOUNTER → 2019-03-16 15:08 | Outpatient (CLI) | payer MEDICARE, SELFPAY ==
[2019-03-16 18:27] LABS: Thyroid Stim Hormone (TSH) 2.99 uIU/mL (0.358-3.74)
== END ==
PROVIDERS: Family Provider Family Medicine; PCP Family Medicine; Referring Provider Psychiatry & Neurology Psychiatry; Visit Provider Psychiatry & Neurology Psychiatry
DX: Z79.899 Other long term (current) drug therapy (principal)
CPT/HCPCS: 36415; 84443

== ENCOUNTER 2019-06-21 13:30 | Outpatient (RCR) | payer MEDICARE, SELFPAY ==
--- NOTE | 2019-06-27 13:01 | HP.PTEVAL ---
Patient's Visit Information JOSIE MCKEE is a 69 year old F referred to Physical Therapy by FERNANDEZ Can with a diagnosis of R shoulder pain. Date of Evaluation: 06/21/19 Physical Therapist: Eliseo Larson DPT - Visit Plan Frequency: 2-3x /Week Duration: 4-6 Weeks Plan: Start with light AAROM as tolerated, use of brandon and wand. Add in strengthening with in available ranges, isometrics throughout RTC musculature. - Subjective Findings: Pt. is here today for her initial evaluation with diagnosis of R shoulder pain. Pt. reports this started about 1 year ago when she fell resulting in a R shoulder dislocation. Pt. went to her and was reloacated. She has not done PT at this point in time. Pt. reports no N/T, but does have incerased pain radiating down her arm and in her shoulder. Nio neck pain. Pt. has increased difficulty with ADls, raising her arm, sleeping, grooming and UB dressing. Pt. denies MRI at this point in time. She did have an xray after her fall, no signs of fracture. Pt. is hopeful to reduce symptosm in order to get back to all recreational activiteis without limitations. - Pain R shoulder Pain Intensity (Out of 10): 4 Pain Intensity Range: 0, 6 - Objective POSTURE: Pt. keeps R shoulder in gaurded posture, roudned shoulders, FH posture. PALPATION: Pt. has no tenderness throughout biceps, but has some mild tenderness along subacormial space. No scapular pain. NEURO: Pt. has normal sensation and normal DTR bilateral UEs. ROM: R shoulder- AROM- flexion 70deg, abd 50deg, functional IR L5, functional ER external auditory meatus. PROM: flexion 170deg, abd 165deg, ER at 90deg 85deg, IR at 90deg 50deg. MMT: Pt. has 4/5 shoulder ER, IR 4-/5 increase NW, flexion 3-/5, abd 3-/5. L shoulder- 5/5 throughout. - Special Tests R Shoulder Drop Sign - IS Test: Positive R Shoulder Empty Can - SS: Positive R Shoulder Belly Press - SupScap: Positive R Shoulder Neer - Impingement: Positive R Shoulder Anguiano Cecil - Impingement: Positive - Goals Goal 1:: LTG: Pt. to be I with HEP. Goal Time Frame: 4-6 Weeks Goal 2:: STG: Pt. to sleep throughout the night without increase in symptoms. Goal Time Frame: 2-4 Weeks Goal 3:: STG: Pt. to have incerased AROM of R shoulder by 25% in all directions. Goal Time Frame: 4-6 Weeks Goal 4:: LTG: PT. to have full R shoulder AROM without incerase in symptoms. Goal Time Frame: 4-6 Weeks Goal 5:: LTG: Pt. to have increased strength throughout R shoulder by 1/2 grade. Goal Time Frame: 4-6 Weeks - Rehabilitation Potential Physical Therapy Diagnosis: Pt. has signs and symptoms consistent with R shoulder pain. Pt. appears to have a RTC tear, most likely subscapularis after mechanical fall with disolcation. I also suspect labral involvement. Pt. has very limited active ROM, but good passive ROM. Pt. was edcuated on this and potential outcomes. I talked to her about rehab for this pathology and what to expected. Pt. would benefit from PT to increase strength and ROM actively. Rehabilitation Potential: Fair - Anticipated Interventions Patient/Client Instruction: Educate patient on: Condition, Plan of Care, Risk Factors, Benefits of Fitness Program For the Purpose of:: To improve health and function, To foster healthy habits, To improve decision making, To facilitate caregiver knowledge, To improve self management, To prevent re-injury, To improve ability to perform tasks related to life management, To improve tolerance to ADL's Therapeutic Exercise to Include: Strength training, Power training, Postural training, Flexibilty training, Passive ROM, Active ROM, Scapular Strength/Stabilization For the Purpose of:: To decrease pain, To increase ROM, To improve nutrient delivery to tissue, To increase oxygenation perfusion, To improve muscle performance and motor function, To improve ability to perform ADL's, To improve health of tissue, To decrease soft tissue restriction Manual Therapy Techniques to Include: Mobilization, Passive ROM, Soft tissue mobilization For the Purpose of:: To decrease pain, To decrease swelling/inflammation, To improve nutrient delivery to tissue, To improve muscle performance and motor function Thank you for the opportunity to evaluate your patient. For Medicare and Medicare HMO plans, please review the plan of care and approve it. It will need to be FAXED BACK to us at [phone] for Medicare purposes. For Medicare only, by signing this I certify the plan of care. Please let me know if there are questions or concerns regarding this plan of care. Physician Signature: Date:
== END 2019-06-21 19:00 | disposition home or self-care (01) ==
LOC: PT 13:30
PROVIDERS: PCP Family Medicine; Referring Provider Nurse Practitioner Family; Visit Provider Nurse Practitioner Family
DX: M25.511 Pain in right shoulder (principal)
CPT/HCPCS: 97161

== ENCOUNTER 2019-10-16 10:04 | Outpatient (RCR) | payer MEDICARE, MEDICAID, SELFPAY ==
--- NOTE | 2019-10-30 13:47 | HP.PTEVAL_ITS ---
Patient's Visit Information JOSIE MCKEE is a 69 year old F referred to Physical Therapy by Slava Colorado PA-C with a diagnosis of R shoulder OA, RTC tear with retraction. Date of Evaluation: 10/16/19 Physical Therapist: Eliseo Larson DPT - Visit Plan Frequency: 2-3x /Week Duration: 4-6 Weeks Plan: Start with light AAROM of R shoulder, light isometrics of RTC and deltoid. US/modalities as needed for pain management. - Subjective Pt. is here today for her initial evaluation with diagnosis of OA of R shoulder. Pt. was seen previously for her R shoulder pain, but was advised to do her exericses, but further imaging might have been beneficial. Pt. did have an MRI showing an extensive RTC tear with retraction. Pt. reports continued pain with sleeping, lifting her arm and with any ADLs. Pt. reports some tingling at times, but not severe. Pt. is hopeful to reduce symptoms in order to get back to all ADls and rectional activities with limitations. - Objective POSTURE: Pt. has normal posture in stance, slight R shoulder depression. PALPATION: Pt. has tenderness along sub acromial space throughout, and biceps region. NEURO: Pt. has normal sensation and DTR of bilateral UEs. ROM: PROM: R shoulder- flexion 120deg increase NW, abd 110deg increase nW, ER at 30deg abd 45deg increase, IR at 30deg of abd 30deg increase. AROM: R shoulder: flexion 75deg, adb 50deg, Functional ER external auditory meatus, functional ER greater trochanter. MMT: R UE: wrist/elbow 5/5 thoughout; R shoulder: flexion 3/5, abd 3/5, ext 4+/5, ER 3/5, IR 4+/5. - Goals Goal 1:: LTG: Pt. to be I with HEP. Goal Time Frame: 4-6 Weeks Goal 2:: LTG: Pt. to have increased AROM of R shoulder by 25% in all directions without increase in symptoms. Goal Time Frame: 4-6 Weeks Goal 3:: LTG: Pt. to have increased strength by 1/2 grade of R shoulder of all effected musculature. Goal Time Frame: 4-6 Weeks Goal 4:: STG: pt. to sleep throughout the night without increase in symptoms. Goal Time Frame: 2-4 Weeks Goal 5:: STG: Pt. to complete light ADLs with R UE without increase in symptoms. Goal Time Frame: 2-4 Weeks Goal 6:: LTG: Pt. to complete all ADLs without increase insymptoms. Goal Time Frame: 4-6 Weeks - Rehabilitation Potential Physical Therapy Diagnosis: Pt. has signs and symptoms consistent with R shoulder OA with RTC tear. Pt. has limited motion and limited strength. She desires to continue [facility] conservative care and see if she can improve. Rehabilitation Potential: Fair - Anticipated Interventions Patient/Client Instruction: Educate patient on: Condition, Plan of Care, Risk Factors, Benefits of Fitness Program For the Purpose of:: To improve decision making, To facilitate caregiver knowledge, To improve self management, To prevent re-injury, To improve ability to perform tasks related to life management, To improve tolerance to ADL's Therapeutic Exercise to Include: Strength training, Power training, Endurance training, Postural training, Passive ROM, Active ROM, Scapular Strength/Stabilization For the Purpose of:: To decrease pain, To decrease swelling/inflammation, To increase ROM, To improve nutrient delivery to tissue, To increase oxygenation perfusion, To improve muscle performance and motor function, To improve ability to perform ADL's, To increase tolerance to activity/condition/position, To impro ve health of tissue, To decrease soft tissue restriction, To increase flexibility/ROM Manual Therapy Techniques to Include: Mobilization, Passive ROM For the Purpose of:: To decrease pain, To decrease swelling/inflammation, To increase ROM, To improve nutrient delivery to tissue TENS: Yes IF ES: Yes Cryotherapy (ice pack, ice massage): Yes Thermo therapy (hot pack): Yes Ultrasound (thermal/non thermal): Yes For the Purpose of:: To decrease pain, To decrease swelling/inflammation, To increase ROM, To improve nutrient delivery to tissue Thank you for the opportunity to evaluate your patient. For Medicare and Medicare HMO plans, please review the plan of care and approve it. It will need to be FAXED BACK to us at [phone] for Medicare purposes. For Medicare only, by signing this I certify the plan of care. Please let me know if there are questions or concerns regarding this plan of care. Physician Signature: ____Date:
== END 2019-10-16 19:00 | disposition home or self-care (01) ==
LOC: PT 10:04
PROVIDERS: PCP Family Medicine; Referring Provider Physician Assistant; Visit Provider Physician Assistant
DX: M19.011 Primary osteoarthritis, right shoulder (principal)
CPT/HCPCS: 97161

== ENCOUNTER → 2019-12-12 13:29 | Outpatient (CLI) | payer MEDICARE, SELFPAY ==
--- NOTE | 2019-12-12 13:34 | BI_ITS ---
MAMMOGRAPHY - BILATERAL DIAGNOSTIC REASON FOR EXAM: Female, 69 years old. Clear discharge of the right breast for 1 month. Pea sized lump deep to the skin surface. PERTINENT HISTORY: Personal history of breast cancer. Prior left lumpectomy with radiation therapy. Aunt with breast cancer. TECHNIQUE: Digital bilateral breast concha (3D mammographic acquisition) in the CC and MLO projections. 2-D mediolateral oblique (MLO) and craniocaudad (CC) views of both breasts were obtained. CAD: Full Field Digital Mammography with Computer Added Detection was performed. COMPARISON: Comparison is made with prior mammogram dated 01/16/2019 and 01/13/2018. FINDINGS: Breast Composition: There are scattered areas of fibroglandular density. There are no dominant masses or suspicious calcifications. The patient is status post left lumpectomy with resultant deformity of the left breast and dense calcification in the central medial portion of the breast. There is overlying skin thickening and skin dimpling at the operative site. This is unchanged. A tissue clip marker is once again seen in the upper medial portion of the left breast. No other significant abnormalities are identified. There has been no significant change since the prior study. BI/DIAG MAMM W/CAD, BILAT IMPRESSION: Stable bilateral diagnostic mammogram. With the patient''s history of right breast discharge and palpable lump, correlation with ultrasound is recommended. ASSESSMENT CATEGORY: BIRADS Category 0: Incomplete. Need additional imaging evaluation. A letter regarding these results will be sent to the patient by the facility within 30 days. Approximately 10% of breast cancers are not detected by mammography. A normal mammogram should not delay biopsy of a clinically suspicious abnormality. Electronically Signed: Yoan Agrawal, at 14:49 EDT , Service support ,
--- NOTE | 2019-12-12 13:34 | US_ITS ---
STUDY: ULTRASOUND BREAST - RIGHT REASON FOR EXAM: Female, 69 years old. Palpable lump in the right breast. Right nipple discharge. TECHNIQUE: Axial and longitudinal images of the RIGHT breast were performed with a high resolution ultrasound transducer. # OF IMAGES: 28 COMPARISON: Comparison is made with prior mammogram done earlier today. FINDINGS: RIGHT Breast: The palpable abnormality corresponds to a 1.1 cm x 1 cm x 0.6 cm isoechoic mass with irregular borders. This is adjacent to the right clavicle. A biopsy is recommended. Mildly dilated retroareolar ducts. US/Breast Limited Unilateral IMPRESSION: The palpable abnormality corresponds to a 1.1 cm x 1 cm x 0.6 cm solid irregular mass. A biopsy is recommended. ASSESSMENT CATEGORY: BIRADS Category 4: Suspicious - Biopsy Should Be Considered. A letter regarding these results will be sent to the patient by the facility within 30 days. Electronically Signed: Yoan Agrawal, at 15:19 EDT , Service support ,
[2019-12-12 15:42] LABS: Prolactin 5.1 ng/mL
== END ==
PROVIDERS: PCP Family Medicine
DX: N64.52 Nipple discharge (principal)
CPT/HCPCS: 36415; 76642; 77062; 77066; 84146; G0279

== ENCOUNTER → 2020-02-05 11:12 | Outpatient (CLI) | payer MEDICARE, MEDICAID, SELFPAY ==
[2020-02-05 11:37] LABS: Absolute Lymphocyte Count 3.33 X10^3/uL (0.83-4.51); Absolute Neutrophil Count 2.9 X10^3/uL (2.0-7.7); Basophil# 0.03 X10^3/uL; Basophil% 0.4 % (0-1); Eosinophil# 0.34 X10^3/uL; Eosinophils% 4.8 % (0-5); Hematocrit 33.6 % (37-47); Hemoglobin 10.6 g/dL (12.0-15.0); Lymphocyte # 3.33 X10^3/ul (4.0); Lymphocyte % 46.7 % (19-41); Mean Corp Hgb Conc 31.5 g/dL (32-36); Mean Corpuscular Hgb 31.2 pg (27.0-32.0); Mean Corpuscular Volume 98.8 fL (81-99); Mean Platelet Vol. 9.8 fl (6.2-12.0); Monocyte# 0.54 X10^3/uL; Monocyte% 7.6 % (0-10); NRBC Flagged by Analyzer 0 % (0-5); Neutrophil # 2.87 X10^3/uL (2.7-7.7); Neutrophil % 40.2 % (47-70); Platelet Count 248 K/mm3 (150-450); RBC Distribution Width CV 14.4 % (11.6-14.6); RBC Distribution Width SD 51.9 fl (35.1-43.9); White Blood Count 7.1 K/mm3 (4.4-11.0)
[2020-02-05 11:59] LABS: ALB/GLOB Ratio 0.8 RATIO (0.9-2.4); AST(SGOT) 18 U/L (15-37); Alanine Aminotransfer ALT/SGPT 21 U/L (13-56); Albumin, Serum 3.6 g/dL (3.2-5.0); Alkaline Phosphatase 84 U/L (45-117); Anion Gap 8 (5-15); BUN 19 mg/dL (7-18); BUN/Creat Ratio 14.3 RATIO (10-20); Calcium,Total 9.6 mg/dL (8.5-10.1); Chloride 106 mmol/L (98-107); Cholesterol 126 mg/dL (200); Creatinine, Serum 1.33 mg/dL (0.55-1.02); EST Glomerular Filtration Rate 42 mL/min (>60); Est Glom Filt Rate - Afr Amer 51 mL/min (>60); Globulin 4.3 g/dL (2.2-4.2); Glucose 164 mg/dL (74-106); High Density Lipoprotein 36 mg/dL; Protein, Total 7.9 g/dL (6.4-8.2); Sodium Level 141 mmol/L (136-145); T4 Free Direct 0.89 ng/dL (0.76-1.46); Thyroid Stim Hormone (TSH) 3.89 uIU/mL (0.358-3.74); Triglycerides 297 mg/dL; Very Low Density Lipoprotein 59 mg/dL (5-40)
[2020-02-05 12:07] LABS: Hemoglobin A1c 8.2 % (3.8-5.6)
== END ==
PROVIDERS: Nurse Practitioner Family
DX: E11.65 Type 2 diabetes mellitus with hyperglycemia (principal); N18.9 Chronic kidney disease, unspecified; E03.9 Hypothyroidism, unspecified; E78.5 Hyperlipidemia, unspecified
CPT/HCPCS: 36415; 80053; 80061; 83036; 84439; 84443; 85025

== ENCOUNTER → 2020-04-08 11:28 | Outpatient (CLI) | payer MEDICARE, MEDICAID, SELFPAY ==
[2020-03-05 16:40] VITALS: BMI 23.4
[2020-04-08 13:00] LABS: T4 Free Direct 0.97 ng/dL (0.76-1.46); Thyroid Stim Hormone (TSH) 2.46 uIU/mL (0.358-3.74)
== END ==
PROVIDERS: Referring Provider Family Medicine; Visit Provider Family Medicine
DX: E03.9 Hypothyroidism, unspecified (principal)
CPT/HCPCS: 36415; 84439; 84443

== ENCOUNTER → 2020-05-30 16:49 | Outpatient (CLI) | payer MEDICARE, MEDICAID, SELFPAY ==
[2020-03-05 16:40] VITALS: BMI 23.4
== END ==
PROVIDERS: Visit Provider Psychiatry & Neurology Psychiatry
DX: Z79.899 Other long term (current) drug therapy (principal)

== ENCOUNTER → 2020-06-12 16:34 | Outpatient (CLI) | payer MEDICARE, MEDICAID, SELFPAY ==
[2020-03-05 16:40] VITALS: BMI 23.4
[2020-06-12 18:17] LABS: Prolactin 3.2 ng/mL
== END ==
PROVIDERS: Referring Provider Psychiatry & Neurology Psychiatry; Visit Provider Psychiatry & Neurology Psychiatry
DX: Z79.899 Other long term (current) drug therapy (principal)
CPT/HCPCS: 36415; 84146

== ENCOUNTER 2020-07-22 07:30 | Outpatient (RCR) | payer MEDICARE, SELFPAY ==
[2020-06-16 14:37] VITALS: BMI 27.4
[2020-07-22] MEDS: COVID-19 VACC, MRNA(PFIZER)/PF 30 MCG/0.3 ML SYRINGE IM (11:14)
[2020-08-12] MEDS: COVID-19 VACC, MRNA(PFIZER)/PF 30 MCG/0.3 ML SYRINGE IM (11:07)
== END 2020-10-21 23:59 ==
LOC: IMMUN 07:30
PROVIDERS: PCP Family Medicine; Visit Provider Family Medicine
DX: Z23 Encounter for immunization (principal)
CPT/HCPCS: 0001A; 0002A; 91300

== ENCOUNTER → 2020-07-22 11:43 | Outpatient (CLI) | payer MEDICARE, MEDICAID, SELFPAY ==
[2020-06-16 14:37] VITALS: BMI 27.4
[2020-07-22 12:54] LABS: Hemoglobin A1c 7.7 % (3.8-5.6)
[2020-07-22 13:06] LABS: ALB/GLOB Ratio 0.8 RATIO (0.9-2.4); AST(SGOT) 18 U/L (15-37); Alanine Aminotransfer ALT/SGPT 20 U/L (13-56); Albumin, Serum 3.5 g/dL (3.2-5.0); Alkaline Phosphatase 92 U/L (45-117); Anion Gap 8 (5-15); BUN 31 mg/dL (7-18); BUN/Creat Ratio 22.6 RATIO (10-20); Calcium,Total 9.1 mg/dL (8.5-10.1); Chloride 104 mmol/L (98-107); Creatinine, Serum 1.37 mg/dL (0.55-1.02); EST Glomerular Filtration Rate 40 mL/min (>60); Est Glom Filt Rate - Afr Amer 49 mL/min (>60); Globulin 4.2 g/dL (2.2-4.2); Glucose 216 mg/dL (74-106); Potassium 3.7 mmol/L (3.5-5.1); Protein, Total 7.7 g/dL (6.4-8.2); Sodium Level 138 mmol/L (136-145)
== END ==
DX: E11.65 Type 2 diabetes mellitus with hyperglycemia (principal)
CPT/HCPCS: 36415; 80053; 83036

== ENCOUNTER → 2020-08-08 12:03 | Outpatient (CLI) | payer MEDICARE, MEDICAID, SELFPAY ==
[2020-06-16 14:37] VITALS: BMI 27.4
--- NOTE | 2020-08-08 12:07 | EKG12_ITS ---
Test Reason : ROUTINE Blood Pressure : / mmHG Vent. Rate : 114 BPM Atrial Rate : 114 BPM P-R Int : 156 ms QRS Dur : 090 ms QT Int : 344 ms P-R-T Axes : 039 -42 057 degrees QTc Int : 474 ms Sinus tachycardia Left axis deviation Abnormal ECG Confirmed by DANDRE RAMSEY, KAYLAN ([id number]), online editor HUGO VALLADARES ([id number]) on 08/11/2020 1:31:12 PM Referred By: [facility] Confirmed By:KAYLAN AMOS MD
[2020-08-08 13:29] LABS: Thyroid Stim Hormone (TSH) 2.92 uIU/mL (0.358-3.74)
== END ==
DX: E03.9 Hypothyroidism, unspecified (principal); R00.2 Palpitations
CPT/HCPCS: 36415; 84443; 93005

== ENCOUNTER → 2020-10-15 13:06 | Outpatient (CLI) | payer MEDICARE, MEDICAID, SELFPAY ==
[2020-10-08 13:17] VITALS: BMI 27.8
[2020-10-15 13:57] LABS: Microalbumin,Random Urine 7.2 mg/L (NO RANGE EST.); Microalbumin:Creatinine Ratio 11.7 mg/g CRE (<30 mg/g CRE)
[2020-10-15 14:09] LABS: Cholesterol 148 mg/dL (200); High Density Lipoprotein 40 mg/dL; Triglycerides 272 mg/dL; Very Low Density Lipoprotein 54 mg/dL (5-40)
== END ==
DX: E78.5 Hyperlipidemia, unspecified (principal)
CPT/HCPCS: 36415; 80061; 82043; 82570

== ENCOUNTER 2020-11-06 15:45 | Emergency (ER) | payer MEDICARE, MEDICAID, SELFPAY ==
[2020-10-23 15:10] VITALS: BMI 27.8
[2020-11-06 15:45] VITALS: RESP 16
[2020-11-06 15:46] VITALS: BP 113/81; PULSE 99; RESP 18; TEMP 36.4; O2SAT 97; BMI 27.2
--- NOTE | 2020-11-06 16:07 | CT_ITS ---
STUDY: CT BRAIN WITHOUT CONTRAST REASON FOR EXAM: Female, 70 years old. Change in Mental Status RADIATION DOSAGE (If Supplied By Facility): CTDIvol = ( 44.99 ) mGy, DLP = ( 796.11 ) mGycm TECHNIQUE: Transaxial CT imaging of the brain was performed without administration of intravenous contrast material. Individualized dose optimization techniques were used for this CT. COMPARISON: 06/30/2018 FINDINGS: Normal soft tissue structures. There is hyperostosis frontalis internus. Normal size ventricles and extra-axial spaces for the patient''s age. Normal white matter tracts of the cerebral hemispheres. Normal basal ganglia and thalami. Normal brainstem. Normal cerebellum. There is no intracranial hemorrhage. There are no findings of an acute ischemic infarction. Normal visualized paranasal sinuses. CT/Brain/Head without Contrast IMPRESSION: Normal unenhanced CT scan of the brain. Electronically Signed: Shelton Alvarez MD at 17:20 EDT Tel , Service support ,
--- NOTE | 2020-11-06 16:07 | EKG12_ITS ---
Test Reason : ILLNESS Blood Pressure : / mmHG Vent. Rate : 088 BPM Atrial Rate : 088 BPM P-R Int : 196 ms QRS Dur : 104 ms QT Int : 370 ms P-R-T Axes : 051 -23 062 degrees QTc Int : 447 ms Normal sinus rhythm Incomplete right bundle branch block Borderline ECG Confirmed by DANDRE RAMSEY, KAYLAN ([id number]), society editor HUGO VALLADARES ([id number]) on 11/07/2020 1:02:00 PM Referred By: [facility] Confirmed By:KAYLAN AMOS MD
--- NOTE | 2020-11-06 16:09 | EX.ED.VIS.PS ---
HPI HPI - Psych History of Present Illness Chief Complaint: Mental Health Narrative Narrative: 70-year-old female with history of bipolar disorder and stated traumatic brain injury presents with joseph. She states has been having trouble sleeping for the past few days. She states she slept some last night but it is broken. She feels internally stimulated. She sees Dr. Delgado at the counseling center and was recently started on carbamazepine Tuesday. She continues to take this with her Seroquel. She is not homicidal or suicidal. [facility] Medical History Anemia Anxiety Arthritis Bipolar disorder Breast cancer Depression DM2 (diabetes mellitus, type 2) Essential (primary) hypertension GERD (gastroesophageal reflux disease) H/O malignant neoplasm of female breast Heart murmur Hyperlipidemia Hyponatremia IBS (irritable bowel syndrome) Neuropathy Psoriasis PTSD (post-traumatic stress disorder) Right bundle branch block (RBBB) TBI (traumatic brain injury) Home Medications lorazepam 1 mg PO TID PRN PRN 01/13/15 [History Last Taken 06/25/18 04:45 1 MG] multivitamin [Multiple Vitamins] 1 ea PO DAILY 06/26/18 [History Last Taken Unknown] ascorbate calcium (vitamin C) 500 mg tablet 500 mg PO DAILY 06/16/20 [History Last Taken Unknown] gabapentin 300 mg capsule 300 mg PO BID 06/16/20 [History Last Taken Unknown] insulin regular human 100 unit/mL injection solution 1 sliding scale dose SC USEASDIRECTD 06/16/20 [History Last Taken Unknown] levothyroxine 25 mcg tablet 25 mcg PO DAILY 06/16/20 [History Last Taken Unknown] quetiapine 300 mg tablet 300 mg PO DAILY 06/16/20 [History Last Taken Unknown] calcium carb 333 mg-vit D3 133 unit-mag ox 133 mg-zinc oxide 5 mg tab tab PO DAILY tab 10/02/20 [History Last Taken Unknown] doxepin 25 mg capsule 25 mg PO DAILY PRN 10/02/20 [History Last Taken Unknown] ferrous sulfate 325 mg (65 mg iron) tablet 80 mg PO DAILY 10/02/20 [History Last Taken Unknown] pravastatin 80 mg tablet 80 mg PO QHS tab 10/08/20 [History Last Taken Unknown] insulin glargine 100 unit/mL subcutaneous solution 35 unit SC QPM #10 ml 10/23/20 [Rx Last Taken Unknown] insulin regular human 100 unit/mL injection solution 15 unit SC TID #20 ml 10/23/20 [Rx Last Taken Unknown] Precision Xtra Monitor #1 ea NS 11/03/20 [Rx Last Taken Unknown] Precision Xtra Test #270 ea NS 11/03/20 [Rx Last Taken Unknown] blood sugar diagnostic #300 ea 11/03/20 [Rx Last Taken Unknown] blood-glucose meter #1 ea 11/03/20 [Rx Last Taken Unknown] carbamazepine 100 mg PO BID 11/06/20 [History Last Taken Unknown] multivitamin with minerals [Hair,Skin and Nails] 1 tab PO BID 11/06/20 [History Last Taken Unknown] Allergy/AdvReac Type Severity Reaction Status Date / Time codeine Allergy Other Verified 10/23/20 15:06 gluten Allergy Rash Verified 10/23/20 15:06 lithium Allergy Hives Verified 11/06/20 15:46 Family History Mother Congestive heart failure (CHF) Grandmother Congestive heart failure (CHF) Uncle , Patient states he during stress test, age late 50's CAD (coronary artery disease) Myocardial infarction Sudden cardiac Surgical History History of lumpectomy Social History Smoking Status: Current every day smoker tobacco type: cigarettes alcohol intake: never substance use type: marijuana what type of physical activity do you participate in: none ROS ROS ED Constitutional Constitutional ED: Denies fever(s) or subjective Eyes Eyes: Denies blurry vision or change in vision ENT ENT ED: Denies ear pain or rhinorrhea Cardiovascular Cardiovascular: Denies chest pain or palpitations Respiratory/Chest Respiratory/Chest: Denies cough, dyspnea or sputum Gastrointestinal Gastrointestinal: Denies abdominal pain, nausea or vomiting Genitourinary Genitourinary ED: Denies dysuria, hematuria or urinary frequency Musculoskeletal Musculoskeletal: Denies arthralgias or myalgias Integumentary Denies abscess or rash Neurologic Neurologic: Denies headache(s), paresthesias or weakness Psychiatric Psychiatric: Reports anxiety and other Details: Manic ; Denies depression or suicidal thoughts EXAM Physical Exam Const Vital Signs: 11/06/20 15:45 11/06/20 15:46 11/06/20 16:51 Temperature 97.6 F L Temperature Source Temporal Pulse Rate 99 Respiratory Rate 16 18 18 Blood Pressure 113/81 H Blood Pressure Mean 91 Pulse Ox 97 Oxygen Delivery Method Room Air 11/06/20 17:20 11/06/20 21:08 11/06/20 23:50 Temperature Temperature Source Pulse Rate 92 Respiratory Rate 12 18 18 Blood Pressure 118/76 Blood Pressure Mean 90 Pulse Ox 97 Oxygen Delivery Method Room Air Positive well nourished General Appearance ED: NAD HEENT normocephalic and atraumatic Eyes PERRL and EOMs intact bilaterally General Eye ED: Negative for scleral icterus Resp normal respiratory effort and clear to auscultation bilaterally Cardio Rate: regular rate Rhythm: regular rhythm Extremity normal to inspection General Extremety ED: Negative for edema General Extremity: Negative for edema Neuro oriented x3 Sensorium / Orientation: alert Psych denies hallucinations, denies homicidal ideation and denies suicidal ideation Appearance: grossly normal Activity / Motor Behavior: appropriate eye contact Speech: normal speech Mood & Affect: anxious Thought Content: No suicidality, No homicidality, No phobia(s) and No hallucination(s) Skin Lesions: no lesions Rashes: no rashes MDM MDM MDM Narrative Medical decision making narrative: Patient seen and evaluated on arrival for patient's concern for joseph. She is having trouble sleeping and feels internally stimulated. She spoke with the counseling center who told her to come to the ED. Patient does not appear to be confused and her speech does not appear to be too pressured. Patient states that if she has to wait more than 5 hours she does not want to be here. I expressed to her that I could probably get her in evaluation from crisis in less than 5 hours but if needing placement it could take a little bit longer. After I left the room the nurse informed me that she stated to her that she wanted to take 5 of her lorazepam at home not in a suicidal manner but to help her sleep and calm down a little bit. She did not ingest this. After speaking with crisis I was told that they had already called counseling center and crisis. The crisis counselor told me that her had reported that she stated she did not want to live anymore. At that point crisis stated to him that he had to call the police.Patient had EKG performed on arrival which shows a sinus rhythm at 88 bpm with incomplete right bundle branch block. There is no signs of ischemic changes on my interpretation. Chest x-ray is interpreted by myself shows no acute cardiopulmonary process and the radiologist does agree. Patient's lab work-up was unremarkable. EtOH and urine drug screen are negativeExcept for cannabinoids.CT brain shows no acute intracranial process. Crisis did come evaluate the patient where she did admit that she was feeling suicidal and did not want to live anymore.Patient was pink slipped. She is medically clear at this time. She was accepted to psychiatric facility. Impression: 1. Suicidal ideation 2. Joseph Lab Data Attestation: I reviewed the patient's lab results. Labs: Laboratory Results - last 24 hr 11/06/20 11/06/20 11/06/20 16:20 16:20 16:20 WBC 9.7 RBC 3.82 L Hgb 11.6 L Hct 35.6 L MCV 93.2 MCH 30.4 MCHC 32.6 RDW Std Deviation 52.0 H RDW Coeff of [place] 15.3 H Plt Count 377 MPV 9.2 Immature Gran % (Auto) 0.500 Neut % (Auto) 69.4 Lymph % (Auto) 22.0 [place] % (Auto) 7.0 Eos % (Auto) 0.7 Baso % (Auto) 0.4 Absolute Neuts (auto) 6.8 Absolute Lymphs (auto) 2.14 Nucleated RBC % 0 Sodium 130 L Potassium 3.8 Chloride 92 L Carbon Dioxide 32.0 Anion Gap 6 BUN 15 Creatinine 1.20 H Estim Creat Clear Calc 30.89 Est GFR (MDRD) Af Amer 57 L Est GFR (MDRD) Non-Af 47 L BUN/Creatinine Ratio 12.5 Glucose 129 H Calcium 9.7 Total Bilirubin 0.40 AST 24 ALT 26 Alkaline Phosphatase 110 Total Protein 8.3 H Albumin 3.9 Globulin 4.4 H Albumin/Globulin Ratio 0.9 TSH 0.87 Urine Color Urine Clarity Urine pH Ur Specific [place] Urine Protein Urine Glucose (UA) Urine Ketones Urine Occult Blood Urine Nitrite Urine Bilirubin Urine Urobilinogen Ur Leukocyte Esterase Urine RBC Urine WBC Ur Squamous Epith Cells Urine Bacteria Urine Mucus Urine Opiates Screen Urine Methadone Screen Ur Barbiturates Screen Ur Phencyclidine Scrn Ur Amphetamines Screen U Methamphetamin-MDMA U Benzodiazepines Scrn Urine Cocaine Screen U Cannabinoids Screen Ur Drug Screen Comment Ethyl Alcohol < 3.0 POC Glucose 11/06/20 11/06/20 11/06/20 16:35 16:35 17:58 WBC RBC Hgb Hct MCV MCH MCHC RDW Std Deviation RDW Coeff of [place] Plt Count MPV Immature Gran % (Auto) Neut % (Auto) Lymph % (Auto) [place] % (Auto) Eos % (Auto) Baso % (Auto) Absolute Neuts (auto) Absolute Lymphs (auto) Nucleated RBC % Sodium Potassium Chloride Carbon Dioxide Anion Gap BUN Creatinine Estim Creat Clear Calc Est GFR (MDRD) Af Amer Est GFR (MDRD) Non-Af BUN/Creatinine Ratio Glucose Calcium Total Bilirubin AST ALT Alkaline Phosphatase Total Protein Albumin Globulin Albumin/Globulin Ratio TSH Urine Color Yellow Urine Clarity Clear Urine pH 8.0 Ur Specific [place] 1.010 Urine Protein 15 H Urine Glucose (UA) Normal Urine Ketones Negative Urine Occult Blood Negative Urine Nitrite Negative Urine Bilirubin Negative Urine Urobilinogen Normal Ur Leukocyte Esterase 25 H Urine RBC 0 SEEN Urine WBC 0-5 SEEN Ur Squamous Epith Cells 5-10 SEEN Urine Bacteria 0 SEEN Urine Mucus 0 SEEN Urine Opiates Screen NEGATIVE Urine Methadone Screen NEGATIVE Ur Barbiturates Screen NEGATIVE Ur Phencyclidine Scrn NEGATIVE Ur Amphetamines Screen NEGATIVE U Methamphetamin-MDMA NEGATIVE U Benzodiazepines Scrn NEGATIVE Urine Cocaine Screen NEGATIVE U Cannabinoids Screen POSITIVE H Ur Drug Screen Comment Ethyl Alcohol POC Glucose 200 H Radiography Diagnostic Testing: Radiology Impression Brain CT 11/06/20 16:07 IMPRESSION: Normal unenhanced CT scan of the brain. Electronically Signed: Shelton Alvarez MD at 17:20 EDT Tel , Service support , Chest X-Ray 11/06/20 16:45 IMPRESSION: Normal x-ray examination of the chest. Electronically Signed: Shelton Alvarez MD at 17:18 EDT Tel , Service support , Discharge Plan Triage Chief Complaint: Mental Health ED Provider: Andrez Jacob Dx/Rx/DC Orders Prescriptions: No Action quetiapine 300 mg tablet 300 mg PO DAILY RF: 0 ascorbate calcium (vitamin C) 500 mg tablet 500 mg PO DAILY RF: 0 gabapentin 300 mg capsule 300 mg PO BID RF: 0 Novolin R Regular U-100 Insuln 100 unit/mL solution 1 sliding scale dose SC USEASDIRECTD RF: 0 levothyroxine 25 mcg tablet 25 mcg PO DAILY RF: 0 Novolin R Regular U-100 Insuln 100 unit/mL solution 15 unit SC TID Qty: 20 RF: 5 Lantus U-100 Insulin 100 unit/mL solution 35 unit SC QPM Qty: 10 RF: 3 pravastatin 80 mg tablet 80 mg PO QHS RF: 0 Juan Luis Mag Zinc Plus D3 333 mg-133 unit -133 mg-5 mg tablet PO DAILY RF: 0 doxepin 25 mg capsule 25 mg PO DAILY PRNRF: 0 ferrous sulfate 325 mg (65 mg iron) tablet 80 mg PO DAILY RF: 0 lorazepam 1 MG tablet 1 mg PO TID PRN PRN (Reason: Anxiety) RF: 0 multivitamin [Multiple Vitamins] 1 EACH tablet 1 ea PO DAILY RF: 0 carbamazepine 100 mg tablet extended release 12 hr 100 mg PO BID RF: 0 multivitamin with minerals [Hair,Skin and Nails] Tablet 1 tab PO BID RF: 0 (DME) blood-glucose meter [Precision Xtra Monitor] Misc See Rx Instructions .ROUTE .MEDSUPPLY Qty: 1 RF: 0 (DME) Precision Xtra Test Strip See Rx Instructions .ROUTE .MEDSUPPLY Qty: 270 RF: 3 (DME) blood-glucose meter [Precision Xtra Monitor] Misc See Rx Instructions .ROUTE .MEDSUPPLY Qty: 1 RF: 0 (DME) Precision Xtra Test Strip See Rx Instructions .ROUTE .MEDSUPPLY Qty: 300 RF: 3 Primary Care Provider: Suyapa English
[2020-11-06 16:32] LABS: Absolute Lymphocyte Count 2.14 X10^3/uL (0.83-4.51); Absolute Neutrophil Count 6.8 X10^3/uL (2.0-7.7); Basophil# 0.04 X10^3/uL; Basophil% 0.4 % (0-1); Eosinophil# 0.07 X10^3/uL; Eosinophils% 0.7 % (0-5); Hematocrit 35.6 % (37-47); Hemoglobin 11.6 g/dL (12.0-15.0); Lymphocyte # 2.14 X10^3/ul (0.83-4.51); Mean Corp Hgb Conc 32.6 g/dL (32-36); Mean Corpuscular Hgb 30.4 pg (27.0-32.0); Mean Corpuscular Volume 93.2 fL (81-99); Mean Platelet Vol. 9.2 fl (6.2-12.0); Monocyte# 0.68 X10^3/uL; NRBC Flagged by Analyzer 0 % (0-5); Neutrophil # 6.76 X10^3/uL (2.7-7.7); Neutrophil % 69.4 % (47-70); Platelet Count 377 K/mm3 (150-450); RBC Distribution Width CV 15.3 % (11.6-14.6); Red Blood Count 3.82 M/mm3 (4.2-5.4); White Blood Count 9.7 K/mm3 (4.4-11.0)
--- NOTE | 2020-11-06 16:45 | RAD_ITS ---
STUDY: X-RAY CHEST REASON FOR EXAM: Female, 70 years old. medical clearance TECHNIQUE: Single AP portable view of the chest. COMPARISON: None. FINDINGS: The lungs are clear and expanded. There is no demonstrated pleural abnormality. Normal size heart. Normal mediastinum and dora. Normal visualized pulmonary arteries. Normal visualized aortic arch and descending thoracic aorta. Normal visualized thoracic spine. Normal visualized ribs, clavicles, and shoulders. There is no demonstrated abnormality of the visualized soft tissue structures of the upper abdomen. RAD/Chest 1 View (Portable) IMPRESSION: Normal x-ray examination of the chest. Electronically Signed: Shelton Alvarez MD at 17:18 EDT Tel , Service support ,
[2020-11-06 16:51] VITALS: RESP 18
[2020-11-06 16:54] LABS: Bacteria 0 SEEN /hpf (None Seen); Mucous, Urine 0 SEEN /hpf (<or=2+); Red Blood Cells-Urine 0 SEEN /hpf (0-5)
[2020-11-06 16:57] LABS: Color, Urine Yellow (Yellow); Glucose, Dipstick Normal (Normal); Ketone-Dipstick Negative (Negative); Leukocyte Esterase-Dipstick 25 /ul (Negative); Nitrite-Dipstick Negative (Negative); Occult Blood-Urine Negative /ul (Negative); Protein-Dipstick 15 mg/dl (Negative); Urine Bilirubin Dipstick Negative (Negative); Urine Clarity Clear (Clear); Urine Urobilinogen Normal (Normal)
[2020-11-06 16:59] LABS: ALB/GLOB Ratio 0.9 RATIO (0.9-2.4); AST(SGOT) 24 U/L (15-37); Alanine Aminotransfer ALT/SGPT 26 U/L (13-56); Albumin, Serum 3.9 g/dL (3.2-5.0); Alkaline Phosphatase 110 U/L (45-117); Anion Gap 6 (5-15); BUN 15 mg/dL (7-18); BUN/Creat Ratio 12.5 RATIO (10-20); Calcium,Total 9.7 mg/dL (8.5-10.1); Chloride 92 mmol/L (98-107); EST Glomerular Filtration Rate 47 mL/min (>60); Est Glom Filt Rate - Afr Amer 57 mL/min (>60); Estimated Creatinine Clearance 30.89 ml/min; Globulin 4.4 g/dL (2.2-4.2); Glucose 129 mg/dL (74-106); Potassium 3.8 mmol/L (3.5-5.1); Protein, Total 8.3 g/dL (6.4-8.2); Sodium Level 130 mmol/L (136-145); Thyroid Stim Hormone (TSH) 0.87 uIU/mL (0.358-3.74)
[2020-11-06 17:06] LABS: Squamous Epithelial Cells - UA 5-10 SEEN /hpf (5-10); White Blood Cells 0-5 SEEN /hpf (0-5)
[2020-11-06 17:08] LABS: Amphetamine Urine VISTA NEGATIVE (<1000 ng/mL); Barbiturate Urine VISTA NEGATIVE (< 200 ng/mL); Benzodiazepine Urine VISTA NEGATIVE (< 200 ng/mL); Cocaine Urine VISTA NEGATIVE (< 300 ng/mL); Ecstacy Urine VISTA NEGATIVE (< 500 ng/mL); Methadone Urine VISTA NEGATIVE (< 300 ng/mL); PCP Urine VISTA NEGATIVE (< 25 ng/mL); THC Urine VISTA POSITIVE (< 50 ng/mL); Vista UDS pH Range 8
[2020-11-06 17:20] VITALS: RESP 12
--- NOTE | 2020-11-06 17:37 | ED.RN ---
pt being loud and belligerent. pt wants to go out and smoke and ws told no. pt tried to leave anyway and was headed off by security. pt agreed to nicotine gum. pt still be loud and yelling about how this hospital sucks and there is no way that we have received any awards. pt now back in her room waiting for the gum
[2020-11-06 17:55] LABS: Alcohol, Blood (Medical)-Serum < 3.0 mg/dL
--- NOTE | 2020-11-06 18:01 | ED.RN ---
CALLED CRISIS TO LET THEM KNOW THAT SHE WAS READY TO EVALUATED
[2020-11-06] MEDS: LORazepam 1 MG Tablet PO (18:02)
[2020-11-06 18:06] LABS: Bedside Glucose 200 mg/dL (70-110)
--- NOTE | 2020-11-06 18:29 | ED.RN ---
called pharmacy to inquire about nicotine gum and Lantus
[2020-11-06] MEDS: Insulin Lispro 100 UNIT/ML INSULN.PEN 10 UNIT SC (18:41)
--- NOTE | 2020-11-06 18:46 | ED.RN ---
Lantus not given at this time, will give with bedtime medications
--- NOTE | 2020-11-06 19:39 | ED.RN ---
pt's daughter, radha called and stated that she needs to the patient to slee. my mother is a spoiled brat and she knows what she is doing.put her to sleep.my dad would say the same thing that she needs to sleep.there is no appeasing her. made her aware that this nurse will give her home medications when they become available.
[2020-11-06] MEDS: Ziprasidone HCl 20 MG Capsule PO (19:49)
[2020-11-06] MEDS: Gabapentin 300 MG Capsule PO (19:50)
[2020-11-06] MEDS: carBAMazepine 200 MG Tablet 100 MG PO (19:51)
[2020-11-06] MEDS: Pravastatin 80 MG Tablet PO (19:52)
--- NOTE | 2020-11-06 19:56 | ED.RN ---
ELVA MCKEE CALLED TO CHECK ON THE PROGRESS OF HIS 'S CARE. HE WAS GIVEN AN UPDATE FROM A NURSING PERSPECTIVE AND HE VERBALIZED UNDERSTANDING. HE REQUESTED TO ALSO HAVE SOMEONE FROM THE COUNSELING CENTER CALL HIM. THIS RN PAGED THE [facility]SELING [facility] AND PASSED ON THE INFORMATION
--- NOTE | 2020-11-06 20:02 | ED.RN ---
Spoke with crisis - admission pending at [facility]
[2020-11-06 21:08] VITALS: RESP 18
--- NOTE | 2020-11-06 21:08 | ED.RN ---
pt up multiple times to go the bathroom,pt becomes verbally abusive when instructed that she needs to go to the bathroom and back to her bed.
--- NOTE | 2020-11-06 23:29 | ED.RN ---
2229 PT'S , ELVA CALLED AND UPDATED REGUARDING PLAN TO SEND PT TO [facility],HOWEVER,DO NOT HAVE A BED ASSIGNMENT YET. THE PT'S SAID THAT THE PT WAS NOT THAT BAD AND THAT SHE HAD A BED AT HOME. EXPLAINED TO HIM THAT ASSIGNMENT OF A PATIENT IS BASED ON INSURANCE AND BED AVAILABILITY. PT'S NOT HAPPY THAT THE PT IS GOING TO GO TO [place]. ASKED HIM IF HE WISHED TO SPEAK TO CRISIS COUNSELOR SINCE THIS NURSE DOES NOT CONTROLL WHERE HIS IS GOING.PT SAID THAT HE WOULD.CRISIS GIVEN ELVA'S PHONE NUMBER AND MADE AWARE THAT HE--THE PATIENT'S WANTED TO TALK TO HER.
--- NOTE | 2020-11-06 23:36 | ED.RN ---
2220 WAS MADE AWARE BY FINESSE ROBERT CHARGE NURSE,THAT CRISIS DID SPEAK TO THE PT'S AND THAT SHE WAS WORKING ON SEEING IF [facility] WOULD RECIEVE THE PT,BUT IF [facility] CALLS WITH BED ASSIGNMENT IN THE MEAN TIME,TO SEND PT THERE.
[2020-11-06 23:50] VITALS: BP 118/76; PULSE 92; RESP 18; O2SAT 97
[2020-11-07 00:04] VITALS: BP 118/76; PULSE 92; RESP 18; TEMP 36.7; O2SAT 97
== END 2020-11-07 00:04 ==
LOC: ED 16:25
PROVIDERS: Emergency Provider Student in an Organized Health Care Education/Training Program; PCP Nurse Practitioner Adult Health
DX: F31.9 Bipolar disorder, unspecified (principal); R45.851 Suicidal ideations; E11.40 Type 2 diabetes mellitus with diabetic neuropathy, unspecified; I10 Essential (primary) hypertension; E78.5 Hyperlipidemia, unspecified; M19.90 Unspecified osteoarthritis, unspecified site; D64.9 Anemia, unspecified; K58.9 Irritable bowel syndrome, unspecified; K21.9 Gastro-esophageal reflux disease without esophagitis; F43.10 Post-traumatic stress disorder, unspecified; F17.210 Nicotine dependence, cigarettes, uncomplicated; Z79.4 Long term (current) use of insulin; Z79.890 Hormone replacement therapy; Z79.899 Other long term (current) drug therapy; Z87.820 Personal history of traumatic brain injury
CPT/HCPCS: 70450; 71045; 80053; 80307; 81001; 82077; 82962; 84443; 85025; 87426; 93005; 99285

== ENCOUNTER 2020-12-21 14:42 | Emergency (ER) | payer MEDICARE, MEDICAID, SELFPAY ==
[2020-12-21] VITALS (8 sets, daily range): BP systolic 126–132; BP diastolic 82–86; PULSE 76–93; RESP 14–16; TEMP 36.4–37.6; O2SAT 97–100; BMI 28.5
--- NOTE | 2020-12-21 14:50 | CT_ITS ---
STUDY: CT BRAIN WITHOUT CONTRAST REASON FOR EXAM: Female, 70 years old. Change in Mental Status RADIATION DOSAGE (If Supplied By Facility): CTDIvol = ( 44.99 ) mGy, DLP = ( 762.36 ) mGycm TECHNIQUE: Transaxial CT imaging of the brain was performed without administration of intravenous contrast material. Individualized dose optimization techniques were used for this CT. COMPARISON: 11/06/2020 FINDINGS: Normal soft tissue structures. There is hyperostosis frontalis internus. Normal size ventricles and extra-axial spaces for the patient''s age. Normal white matter tracts of the cerebral hemispheres. Normal basal ganglia and thalami. Normal brainstem. Normal cerebellum. There is no intracranial hemorrhage. There are no findings of an acute ischemic infarction. Normal visualized paranasal sinuses. CT/Brain/Head without Contrast IMPRESSION: Normal unenhanced CT scan of the brain. Electronically Signed: Kofi Arroyo MD at 18:18 EDT , Service support ,
[2020-12-21 15:06] LABS: Absolute Lymphocyte Count 2.68 X10^3/uL (0.83-4.51); Absolute Neutrophil Count 3.1 X10^3/uL (2.0-7.7); Basophil# 0.05 X10^3/uL; Basophil% 0.8 % (0-1); Eosinophil# 0.16 X10^3/uL; Eosinophils% 2.4 % (0-5); Hematocrit 35.6 % (37-47); Hemoglobin 11.9 g/dL (12.0-15.0); Lymphocyte # 2.68 X10^3/ul (0.83-4.51); Lymphocyte % 40.2 % (19-41); Mean Corp Hgb Conc 33.4 g/dL (32-36); Mean Corpuscular Hgb 30.2 pg (27.0-32.0); Mean Corpuscular Volume 90.4 fL (81-99); Mean Platelet Vol. 9.2 fl (6.2-12.0); Monocyte# 0.64 X10^3/uL; Monocyte% 9.6 % (0-10); NRBC Flagged by Analyzer 0 % (0-5); Neutrophil # 3.12 X10^3/uL (2.7-7.7); Neutrophil % 46.8 % (47-70); Platelet Count 336 K/mm3 (150-450); RBC Distribution Width SD 46.5 fl (35.1-43.9); Red Blood Count 3.94 M/mm3 (4.2-5.4); White Blood Count 6.7 K/mm3 (4.4-11.0)
[2020-12-21 15:20] LABS: Anion Gap 9 (5-15); BUN 12 mg/dL (7-18); BUN/Creat Ratio 14.1 RATIO (10-20); Calcium,Total 9.3 mg/dL (8.5-10.1); Chloride 97 mmol/L (98-107); Creatinine, Serum 0.85 mg/dL (0.55-1.02); EST Glomerular Filtration Rate 70 mL/min (>60); Est Glom Filt Rate - Afr Amer 85 mL/min (>60); Glucose 123 mg/dL (74-106); Potassium 3.1 mmol/L (3.5-5.1); Sodium Level 132 mmol/L (136-145)
[2020-12-21 15:28] LABS: Bacteria 0 SEEN /hpf (None Seen); Mucous, Urine 0 SEEN /hpf (<or=2+); Red Blood Cells-Urine 0 SEEN /hpf (0-5)
[2020-12-21 15:31] LABS: Color, Urine Yellow (Yellow); Glucose, Dipstick Normal (Normal); Ketone-Dipstick Negative (Negative); Leukocyte Esterase-Dipstick 100 /ul (Negative); Nitrite-Dipstick Negative (Negative); Occult Blood-Urine Negative /ul (Negative); Protein-Dipstick 30 mg/dl (Negative); Specific Gravity, Urine 1.015 (1.002-1.030); Urine Bilirubin Dipstick Negative (Negative); Urine Clarity Sl. Cloudy (Clear); Urine Urobilinogen Normal (Normal)
[2020-12-21 15:32] LABS: Alcohol, Blood (Medical)-Serum < 3.0 mg/dL
[2020-12-21] MEDS: Ziprasidone IM 20 MG/ML VIAL IM (15:37)
[2020-12-21 15:42] LABS: Amorphous Sediment 1+ URATE; Squamous Epithelial Cells - UA 25-50 SEEN /hpf (5-10); White Blood Cells 5-10 SEEN /hpf (0-5)
--- NOTE | 2020-12-21 16:02 | RAD_ITS ---
INDICATION: Altered Mental Status EXAMINATION/TECHNIQUE: X-RAY - XR Chest 1 View COMPARISON: 11/06/2020. FINDINGS: The lungs are clear. The cardiomediastinal silhouette is unremarkable. No pleural effusion or pneumothorax. No acute osseous abnormalities. RAD/Chest 1 View (Portable) IMPRESSION: No acute radiographic abnormalities. Electronically Signed: Wellington Merchant MD at 16:26 EDT Tel , Service support ,
--- NOTE | 2020-12-21 16:13 | ED.RN ---
Spoke with , Rick. He would like an update after crisis sees pt.
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
[2020-12-21 16:53] LABS: Amphetamine Urine VISTA NEGATIVE (<1000 ng/mL); Barbiturate Urine VISTA NEGATIVE (< 200 ng/mL); Benzodiazepine Urine VISTA NEGATIVE (< 200 ng/mL); Cocaine Urine VISTA NEGATIVE (< 300 ng/mL); Ecstacy Urine VISTA NEGATIVE (< 500 ng/mL); Methadone Urine VISTA NEGATIVE (< 300 ng/mL); PCP Urine VISTA NEGATIVE (< 25 ng/mL); THC Urine VISTA POSITIVE (< 50 ng/mL); Vista UDS pH Range 6
--- NOTE | 2020-12-21 16:56 | NURSING ---
CALLED CRISIS. ARNOLD IS ON
--- NOTE | 2020-12-21 17:49 | NURSING ---
ARNOLD, CRISIS, HERE FOR PATIENT
[2020-12-21 19:46] LABS: Bedside Glucose 168 mg/dL (70-110)
--- NOTE | 2020-12-21 20:11 | ED.RN ---
PATIENT HAS BEEN REFEREED TO [facility] AT THIS TIME
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
[2020-12-21] MEDS: carBAMazepine 200 MG Tablet 100 MG PO (20:33)
[2020-12-21] MEDS: Gabapentin 300 MG Capsule PO (20:33)
[2020-12-21] MEDS: Atorvastatin Calcium 80 MG Tablet PO (20:33)
--- NOTE | 2020-12-21 21:44 | EKG12_ITS ---
Test Reason : MHC Blood Pressure : / mmHG Vent. Rate : 075 BPM Atrial Rate : 075 BPM P-R Int : 200 ms QRS Dur : 110 ms QT Int : 402 ms P-R-T Axes : 060 -13 063 degrees QTc Int : 448 ms Normal sinus rhythm Right bundle branch block Abnormal ECG Confirmed by AYUSH RAMSEY, BRO ([id number]), food editor HUGO VALLADARES ([id number]) on 12/24/2020 9:49:56 AM Referred By: MERI Confirmed By:BRO PEACOCK MD
[2020-12-21] MEDS: Potassium Chloride Oral Tablet 20 MEQ 40 MEQ PO (22:38)
== END 2020-12-21 22:50 ==
LOC: ED 15:21
PROVIDERS: Emergency Provider Student in an Organized Health Care Education/Training Program; PCP Nurse Practitioner Adult Health
DX: R41.0 Disorientation, unspecified (principal); R45.1 Restlessness and agitation; F31.9 Bipolar disorder, unspecified; E11.40 Type 2 diabetes mellitus with diabetic neuropathy, unspecified; I10 Essential (primary) hypertension; E78.5 Hyperlipidemia, unspecified; K58.9 Irritable bowel syndrome, unspecified; K21.9 Gastro-esophageal reflux disease without esophagitis; F43.10 Post-traumatic stress disorder, unspecified; F17.210 Nicotine dependence, cigarettes, uncomplicated; Z79.4 Long term (current) use of insulin; Z79.899 Other long term (current) drug therapy; Z87.820 Personal history of traumatic brain injury; Z62.819 Personal history of unspecified abuse in childhood
CPT/HCPCS: 36415; 70450; 71045; 80048; 80307; 81001; 82077; 82962; 85025; 87426; 93005; 96372; 99285; J3486

== ENCOUNTER 2021-01-10 10:42 | Inpatient (IN) | payer MEDICARE, MEDICAID, SELFPAY ==
[2021-01-10] VITALS (7 sets, daily range): BP systolic 122–130; BP diastolic 66–85; PULSE 79–83; RESP 16–20; TEMP 36.6–36.7; O2SAT 94–98; BMI 21.6; BMI 22.9
[2021-01-10 11:50] LABS: Absolute Neutrophil Count 6.5 X10^3/uL (2.0-7.7); Basophil# 0.03 X10^3/uL; Basophil% 0.4 % (0-1); Eosinophil# 0.09 X10^3/uL; Eosinophils% 1.1 % (0-5); Hematocrit 31.6 % (37-47); Hemoglobin 11.1 g/dL (12.0-15.0); Lymphocyte % 15.2 % (19-41); Mean Corp Hgb Conc 35.1 g/dL (32-36); Mean Corpuscular Hgb 29.9 pg (27.0-32.0); Mean Corpuscular Volume 85.2 fL (81-99); Monocyte# 0.65 X10^3/uL; Monocyte% 7.6 % (0-10); NRBC Flagged by Analyzer 0 % (0-5); Neutrophil # 6.47 X10^3/uL (2.7-7.7); Neutrophil % 75.3 % (47-70); Platelet Count 301 K/mm3 (150-450); RBC Distribution Width CV 13.2 % (11.6-14.6); RBC Distribution Width SD 41.1 fl (35.1-43.9); Red Blood Count 3.71 M/mm3 (4.2-5.4); White Blood Count 8.6 K/mm3 (4.4-11.0)
--- NOTE | 2021-01-10 11:59 | EDS_ITS ---
HPI HPI - Psych History of Present Illness Chief Complaint: Mental Health Informant: patient Narrative Narrative: Patient is evidently brought in for exacerbation of psychiatric illness. She has been acting more bizarre. She has been seeing people. She has been evidently talking with people from the past. Some of these are relatives that black falcon. She admits she has not been taking her meds for probably 1 to 3 days. She states if she takes them they make her sick. However she has no nausea now. In fact she just ate in the room without difficulty. Her only complaint is that she would like a Lidoderm patch for her right shoulder. Although she has a bruise on that she states it is chronic pain and it is no different than normal. Patient is actually a reasonably good informant for her history. She is also awake and oriented x4. [facility] Medical History Anemia Anxiety Arthritis Bipolar disorder Breast cancer Depression DM2 (diabetes mellitus, type 2) Essential (primary) hypertension GERD (gastroesophageal reflux disease) H/O malignant neoplasm of female breast Heart murmur Hyperlipidemia Hyponatremia IBS (irritable bowel syndrome) Neuropathy Psoriasis PTSD (post-traumatic stress disorder) Right bundle branch block (RBBB) TBI (traumatic brain injury) Home Medications lorazepam 1 mg PO TID PRN PRN 01/13/15 [History Last Taken 06/25/18 04:45 1 MG] multivitamin [Multiple Vitamins] 1 ea PO DAILY 06/26/18 [History Last Taken Unknown] ascorbate calcium (vitamin C) 500 mg tablet 500 mg PO DAILY 06/16/20 [History Last Taken Unknown] gabapentin 300 mg capsule 300 mg PO BID 06/16/20 [History Last Taken Unknown] insulin regular human 100 unit/mL injection solution 1 sliding scale dose SC USEASDIRECTD 06/16/20 [History Last Taken Unknown] levothyroxine 25 mcg tablet 25 mcg PO DAILY 06/16/20 [History Last Taken U nknown] quetiapine 300 mg tablet 300 mg PO DAILY 06/16/20 [History Last Taken Unknown] calcium carb 333 mg-vit D3 133 unit-mag ox 133 mg-zinc oxide 5 mg tab tab PO DAILY tab 10/02/20 [History Last Taken Unknown] doxepin 25 mg capsule 25 mg PO DAILY PRN 10/02/20 [History Last Taken Unknown] ferrous sulfate 325 mg (65 mg iron) tablet 80 mg PO DAILY 10/02/20 [History Last Taken Unknown] pravastatin 80 mg tablet 80 mg PO QHS tab 10/08/20 [History Last Taken Unknown] insulin regular human 100 unit/mL injection solution 15 unit SC TID #20 ml 10/23/20 [Rx Last Taken Unknown] Precision Xtra Monitor #1 ea NS 11/03/20 [Rx Last Taken Unknown] Precision Xtra Test #270 ea NS 11/03/20 [Rx Last Taken Unknown] blood sugar diagnostic #300 ea 11/03/20 [Rx Last Taken Unknown] blood-glucose meter #1 ea 11/03/20 [Rx Last Taken Unknown] carbamazepine 100 mg PO BID 11/06/20 [History Last Taken Unknown] multivitamin with minerals [Hair,Skin and Nails] 1 tab PO BID 11/06/20 [History Last Taken Unknown] insulin syringe-needle U-100 0.5 mL 30 gauge x 1/2 #100 ea 11/21/20 [Rx Last Taken Unknown] insulin glargine [Lantus U-100 Insulin] 30 unit SC QPM 12/21/20 [History Last Taken Unknown] Allergy/AdvReac Type Severity Reaction Status Date / Time codeine Allergy Other Verified 01/10/21 10:45 gluten Allergy Rash Verified 01/10/21 10:45 lithium Allergy Hives Verified 01/10/21 10:45 Family History Mother Congestive heart failure (CHF) Grandmother Congestive heart failure (CHF) Uncle , Patient states he during stress test, age late 50's CAD (coronary artery disease) Myocardial infarction Sudden cardiac Surgical History History of lumpectomy Social History Smoking Status: Current every day smoker tobacco type: cigarettes alcohol intake: never substance use type: marijuana what type of physical activity do you participate in: none ROS ROS ED Constitutional Constitutional ED: Denies chills or fever(s) Eyes Eyes: Denies blurry vision ENT ENT ED: Denies rhinorrhea or sore throat Cardiovascular Cardiovascular: Denies chest pain Respiratory/Chest Respiratory/Chest: Denies cough or dyspnea Gastrointestinal Gastrointestinal: Reports diarrhea, nausea, vomiting and other Details: Patient states she gets nausea vomiting and diarrhea if she takes her medicines. She is not having the symptoms right now because she is not taking her medicines. Genitourinary Genitourinary ED: Denies dysuria Musculoskeletal Musculoskeletal: Reports arthralgias and other Details: Patient states she has chronic arthritic joint pains. She also states that she is a fall risk. ; Denies back pain Integumentary Denies Abrasions Neurologic Neurologic: Denies headache(s) Psychiatric Psychiatric: Reports other Details: See history of present illness. ; Denies suicidal ideation or suicidal thoughts Endocrine Endocrinology: Denies polydipsia or polyuria Hematologic/Lymphatic Hematologic/Lymphatic: Denies easy bleeding or easy bruising Allergic/Immunologic Allergic/Immunologic ED: Denies urticaria EXAM Physical Exam Const Vital Signs: 01/10/21 10:43 01/10/21 13:13 Temperature 98.0 F Temperature Source Temporal Pulse Rate 79 Respiratory Rate 16 16 Blood Pressure 122/84 H Blood Pressure Mean 96 Pulse Ox 98 Oxygen Delivery Method Room Air Positive well nourished and well developed Constitutional Narrative: Patient is sitting in bed. She just finished eating some fruit, applesauce and drinking a Coke. General Appearance ED: well developed and NAD HEENT Reports moist mucous membranes normocephalic Eyes General Eye ED: Negative for pale conjunctiva Resp normal respiratory effort Cardio Rate: regular rate Rhythm: regular rhythm GI non-tender and non-distended Auscultation: normoactive bowel sounds Palpation: soft Back/Spine no CVA tenderness Neuro oriented x3 Neuro Narrative: Patient is alert to person, place, time, current political events. She is actually a reasonably good informant for her medications. Sensorium / Orientation: alert Psych Psych Narrative: She does have slight pressured speech. She has slight agitation but still has a sense of humor and is easily defused verbally. Skin Rashes: no rashes MDM MDM MDM Narrative Medical decision making narrative: As part of medical clearance, blood work shows sodium of 118. Glucose is only 200. This is not factitious hyponatremia. I did start her on saline. Urine shows no no sign of infection. Tox is positive for cannabinoids. Ethanol is negative. Case was discussed with hospitalist. Since the patient is awake alert and stable vitals she will go to PCU. Lab Data Attestation: I reviewed the patient's lab results. Labs: Laboratory Results - last 24 hr 01/10/21 01/10/21 01/10/21 11:35 11:35 11:45 WBC 8.6 RBC 3.71 L Hgb 11.1 L Hct 31.6 L MCV 85.2 MCH 29.9 MCHC 35.1 RDW Std Deviation 41.1 RDW Coeff of [place] 13.2 Plt Count 301 MPV 9.0 Immature Gran % (Auto) 0.400 Neut % (Auto) 75.3 H Lymph % (Auto) 15.2 L [place] % (Auto) 7.6 Eos % (Auto) 1.1 Baso % (Auto) 0.4 Absolute Neuts (auto) 6.5 Absolute Lymphs (auto) 1.30 Nucleated RBC % 0 Sodium Potassium Chloride Carbon Dioxide Anion Gap BUN Creatinine Estim Creat Clear Calc Est GFR (MDRD) Af Amer Est GFR (MDRD) Non-Af BUN/Creatinine Ratio Glucose Calcium Urine Color Yellow Urine Clarity Sl. Cloudy Urine pH 7.0 Ur Specific [place] 1.010 Urine Protein 30 H Urine Glucose (UA) 100 H Urine Ketones Negative Urine Occult Blood Negative Urine Nitrite Negative Urine Bilirubin Negative Urine Urobilinogen Normal Ur Leukocyte Esterase Negative Urine RBC 0 SEEN Urine WBC 0 SEEN Ur Squamous Epith Cells 0-5 SEEN Urine Bacteria RARE Urine Mucus 0 SEEN Urine Opiates Screen NEGATIVE Urine Methadone Screen NEGATIVE Ur Barbiturates Screen NEGATIVE Ur Phencyclidine Scrn NEGATIVE Ur Amphetamines Screen NEGATIVE U Methamphetamin-MDMA NEGATIVE U Benzodiazepines Scrn NEGATIVE Urine Cocaine Screen NEGATIVE U Cannabinoids Screen POSITIVE H Ur Drug Screen Comment Ethyl Alcohol 01/10/21 01/10/21 11:45 11:45 WBC RBC Hgb Hct MCV MCH MCHC RDW Std Deviation RDW Coeff of [place] Plt Count MPV Immature Gran % (Auto) Neut % (Auto) Lymph % (Auto) [place] % (Auto) Eos % (Auto) Baso % (Auto) Absolute Neuts (auto) Absolute Lymphs (auto) Nucleated RBC % Sodium 118 L* Potassium 3.7 Chloride 81 L Carbon Dioxide 28.0 Anion Gap 9 BUN 10 Creatinine 0.68 Estim Creat Clear Calc 46.43 Est GFR (MDRD) Af Amer 110 Est GFR (MDRD) Non-Af 91 BUN/Creatinine Ratio 14.7 Glucose 205 H Calcium 8.8 Urine Color Urine Clarity Urine pH Ur Specific [place] Urine Protein Urine Glucose (UA) Urine Ketones Urine Occult Blood Urine Nitrite Urine Bilirubin Urine Urobilinogen Ur Leukocyte Esterase Urine RBC Urine WBC Ur Squamous Epith Cells Urine Bacteria Urine Mucus Urine Opiates Screen Urine Methadone Screen Ur Barbiturates Screen Ur Phencyclidine Scrn Ur Amphetamines Screen U Methamphetamin-MDMA U Benzodiazepines Scrn Urine Cocaine Screen U Cannabinoids Screen Ur Drug Screen Comment Ethyl Alcohol < 3.0 Discharge Plan Triage Chief Complaint: Mental Health ED Provider: Ramon Trujillo Dx/Rx/DC Orders Clinical Impression: Hyponatremia Prescriptions: No Action quetiapine 300 mg tablet 300 mg PO DAILY RF: 0 ascorbate calcium (vitamin C) 500 mg tablet 500 mg PO DAILY RF: 0 gabapentin 300 mg capsule 300 mg PO BID RF: 0 Novolin R Regular U-100 Insuln 100 unit/mL solution 1 sliding scale dose SC USEASDIRECTD RF: 0 levothyroxine 25 mcg tablet 25 mcg PO DAILY RF: 0 Novolin R Regular U-100 Insuln 100 unit/mL solution 15 unit SC TID Qty: 20 RF: 5 pravastatin 80 mg tablet 80 mg PO QHS RF: 0 Juan Luis Mag Zinc Plus D3 333 mg-133 unit -133 mg-5 mg tablet PO DAILY RF: 0 doxepin 25 mg capsule 25 mg PO DAILY PRN (Reason: OTHER) RF: 0 ferrous sulfate 325 mg (65 mg iron) tablet 80 mg PO DAILY RF: 0 lorazepam 1 MG tablet 1 mg PO TID PRN PRN (Reason: Anxiety) RF: 0 multivitamin [Multiple Vitamins] 1 EACH tablet 1 ea PO DAILY RF: 0 carbamazepine 100 mg tablet extended release 12 hr 100 mg PO BID RF: 0 multivitamin with minerals [Hair,Skin and Nails] Tablet 1 tab PO BID RF: 0 Lantus U-100 Insulin 100 unit/mL solution 30 unit SC QPM RF: 0 (DME) blood-glucose meter [Precision Xtra Monitor] Misc See Rx Instructions .ROUTE .MEDSUPPLY Qty: 1 RF: 0 (DME) Precision Xtra Test Strip See Rx Instructions .ROUTE .MEDSUPPLY Qty: 270 RF: 3 (DME) blood-glucose meter [Precision Xtra Monitor] Misc See Rx Instructions .ROUTE .MEDSUPPLY Qty: 1 RF: 0 (DME) Precision Xtra Test Strip See Rx Instructions .ROUTE .MEDSUPPLY Qty: 300 RF: 3 (DME) insulin syringe-needle U-100 [BD Insulin Syringe Ultra-Fine] 0.5 mL 30 gauge x 1/2 syringe See Rx Instructions .ROUTE .MEDSUPPLY Qty: 100 RF: 3 Primary Care Provider: Suyapa English Referrals: Suyapa English, DISHROOM ATTENDANT-C [Primary Care Provider] - Disposition Disposition: Acute Care Hospital [facility]
[2021-01-10 12:03] LABS: Alcohol, Blood (Medical)-Serum < 3.0 mg/dL
[2021-01-10 12:11] LABS: Amphetamine Urine VISTA NEGATIVE (<1000 ng/mL); Barbiturate Urine VISTA NEGATIVE (< 200 ng/mL); Benzodiazepine Urine VISTA NEGATIVE (< 200 ng/mL); Cocaine Urine VISTA NEGATIVE (< 300 ng/mL); Ecstacy Urine VISTA NEGATIVE (< 500 ng/mL); Methadone Urine VISTA NEGATIVE (< 300 ng/mL); PCP Urine VISTA NEGATIVE (< 25 ng/mL); THC Urine VISTA POSITIVE (< 50 ng/mL); Vista UDS pH Range 7
[2021-01-10] MEDS: Lidocaine 5% Patch 1 PATCH TOPICAL (12:21)
[2021-01-10 12:23] LABS: Anion Gap 9 (5-15); BUN 10 mg/dL (7-18); BUN/Creat Ratio 14.7 RATIO (10-20); Calcium,Total 8.8 mg/dL (8.5-10.1); Chloride 81 mmol/L (98-107); Creatinine, Serum 0.68 mg/dL (0.55-1.02); EST Glomerular Filtration Rate 91 mL/min (>60); Est Glom Filt Rate - Afr Amer 110 mL/min (>60); Estimated Creatinine Clearance 46.43 ml/min; Glucose 205 mg/dL (74-106); Potassium 3.7 mmol/L (3.5-5.1); Sodium Level 118 mmol/L (136-145)
[2021-01-10 12:37] LABS: Mucous, Urine 0 SEEN /hpf (<or=2+); Red Blood Cells-Urine 0 SEEN /hpf (0-5); White Blood Cells 0 SEEN /hpf (0-5)
[2021-01-10] MEDS: Ondansetron 4 MG/2 ML Vial IV (12:52)
[2021-01-10] MEDS: 0.9% Normal Saline 1,000 ML 150 ML IV ×2 (12:52→14:00)
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
[2021-01-10 13:10] LABS: Color, Urine Yellow (Yellow); Glucose, Dipstick 100 mg/dl (Normal); Ketone-Dipstick Negative (Negative); Leukocyte Esterase-Dipstick Negative /ul (Negative); Nitrite-Dipstick Negative (Negative); Occult Blood-Urine Negative /ul (Negative); Protein-Dipstick 30 mg/dl (Negative); Urine Bilirubin Dipstick Negative (Negative); Urine Clarity Sl. Cloudy (Clear); Urine Urobilinogen Normal (Normal)
--- NOTE | 2021-01-10 13:17 | HP.PCM.HOS_ITS ---
HPI - General General Date of Admission: 01/10/21 HPI Narrative JOSIE MCKEE, is a 70 F with an extensive PMH as outlined who was admitted via the ED on 01/10/2021 for a mental health evaluation. She has a history of bipolar disorder. She was seen in a psych facility for a few days a few weeks ago, and was discharged home. She had been recently acting more bizarrely, and had been talkiing to people from the past, and also seeing people. She said she hadnt been compliant with her meds for a few days. She denied any nausea, vomiting, and fever or chills. Review of systems was otherwise negative. Plan was to clear her for admission to a mental health facility, labs showed a low sodium of 118. CBC showed hemoglobin of 11.1 and WBC of 8.6 with platelets of 301. BMP showed sodium of 118 and anion gap of 9, as well as K of 3.7 and chloride of 28. She has had episodic low sodium in the past. She is being admitted to be managed for acute hyponatremia. [facility] Medical History (Updated 01/10/21 @ 16:[address] August Frias MD) Anemia Anxiety Arthritis Bipolar disorder Breast cancer Depression DM2 (diabetes mellitus, type 2) Essential (primary) hypertension GERD (gastroesophageal reflux disease) H/O malignant neoplasm of female breast Heart murmur Hyperlipidemia Hyponatremia IBS (irritable bowel syndrome) Neuropathy Psoriasis PTSD (post-traumatic stress disorder) Right bundle branch block (RBBB) TBI (traumatic brain injury) Home Medications lorazepam 1 mg PO TID PRN PRN 01/13/15 [History Last Taken 06/25/18 04:45 1 MG] multivitamin [Multiple Vitamins] 1 ea PO DAILY 06/26/18 [History Last Taken Unknown] ascorbate calcium (vitamin C) 500 mg tablet 500 mg PO DAILY 06/16/20 [History Last Taken Unknown] gabapentin 300 mg capsule 300 mg PO BID 06/16/20 [History Last Taken Unknown] insulin regular human 100 unit/mL injection solution 1 sliding scale dose SC USEASDIRECTD 06/16/20 [History Last Taken Unknown] levothyroxine 25 mcg tablet 25 mcg PO DAILY 06/16/20 [History Last Taken Unknown] quetiapine 300 mg tablet 300 mg PO DAILY 06/16/20 [History Last Taken Unknown] calcium carb 333 mg-vit D3 133 unit-mag ox 133 mg-zinc oxide 5 mg tab tab PO DAILY tab 10/02/20 [History Last Taken Unknown] doxepin 25 mg capsule 25 mg PO DAILY PRN 10/02/20 [History Last Taken Unknown] ferrous sulfate 325 mg (65 mg iron) tablet 80 mg PO DAILY 10/02/20 [History Last Taken Unknown] pravastatin 80 mg tablet 80 mg PO QHS tab 10/08/20 [History Last Taken Unknown] insulin regular human 100 unit/mL injection solution 15 unit SC TID #20 ml 10/23/20 [Rx Last Taken Unknown] Precision Xtra Monitor #1 ea NS 11/03/20 [Rx Last Taken Unknown] Precision Xtra Test #270 ea NS 11/03/20 [Rx Last Taken Unknown] blood sugar diagnostic #300 ea 11/03/20 [Rx Last Taken Unknown] blood-glucose meter #1 ea 11/03/20 [Rx Last Taken Unknown] carbamazepine 100 mg PO BID 11/06/20 [History Last Taken Unknown] multivitamin with minerals [Hair,Skin and Nails] 1 tab PO BID 11/06/20 [History Last Taken Unknown] insulin syringe-needle U-100 0.5 mL 30 gauge x 1/2 #100 ea 11/21/20 [Rx Last Taken Unknown] insulin glargine [Lantus U-100 Insulin] 30 unit SC QPM 12/21/20 [History Last Taken Unknown] Allergy/AdvReac Type Severity Reaction Status Date / Time codeine Allergy Other Verified 01/10/21 10:45 gluten Allergy Rash Verified 01/10/21 10:45 lithium Allergy Hives Verified 01/10/21 10:45 Family History Mother Congestive heart failure (CHF) Grandmother Congestive heart failure (CHF) Uncle , Patient states he during stress test, age late 50's CAD (coronary artery disease) Myocardial infarction Sudden cardiac Surgical History History of lumpectomy Social History Smoking Status: Current every day smoker tobacco type: cigarettes alcohol intake: never substance use type: marijuana what type of physical activity do you participate in: none ROS Review of Systems ROS Unobtainable: Denies due to encephalopathy Constitutional Constitutional: Denies anorexia, chills, fatigue, fever(s), malaise or weakness Eyes Eyes: Denies change in vision ENT HEENT: Denies dysphagia, headache(s), hearing loss or sore throat Cardiovascular Cardiovascular: Denies chest pain, dyspnea on exertion, lightheadedness, palpi tations, paroxysmal nocturnal dyspnea, rapid heart rate or syncope Respiratory/Chest Respiratory/Chest: Denies cough, dyspnea, productive cough, shortness of breath at rest or shortness of breath with exertion Gastrointestinal Gastrointestinal: Denies abdominal pain, constipation, diarrhea, dyspepsia, nausea or vomiting Genitourinary Genitourinary: Denies burning urination, dysuria or urinary frequency Neurologic Neurologic: Denies confusion, dizziness, focal weakness, seizures or syncope Psychiatric Psychiatric: Denies anxiety or depression Vital Signs Vital Signs Vital Signs: 01/10/21 10:43 01/10/21 13:13 Temperature 98.0 F Temperature Source Temporal Pulse Rate 79 Respiratory Rate 16 16 Blood Pressure 122/84 H Blood Pressure Mean 96 Pulse Ox 98 Oxygen Delivery Method Room Air Weight Weight: 130 lb Body Mass Index (BMI) 21.6 Physical Exam Const alert, oriented x3 and no apparent distress General Appearance: cooperative HEENT normocephalic, head/scalp atraumatic, hearing grossly normal bilaterally and moist oral mucous membranes Eyes PERRL, EOMs intact bilaterally and conjunctivae normal Neck no lymphadenopathy Resp normal respiratory effort, no use of accessory muscles and clear to auscultation bilaterally Cardio regular rate, regular rhythm, S1 normal heart sound, S2 normal heart sound and no murmurs GI normal to inspection, nondistended, normoactive bowel sounds, soft to palpation and non-tender Extremity normal to inspection, full ROM and no clubbing, cyanosis or edema Peripheral Pulses: Yes pulses 2+ throughout Skin no rashes or lesions noted Neuro oriented x3, CN's II-XII intact bilaterally and moves all extremities Sensorium / Orientation: awake and alert Motor Exam: strength 5/5 throughout Psych affect normal Results Lab / Micro Data Result Diagrams: 01/10/21 11:45 01/10/21 11:45 Labs: Laboratory Results - last 24 hr 01/10/21 11:35: Urine Opiates Screen NEGATIVE, Urine Methadone Screen NEGATIVE, Ur Barbiturates Screen NEGATIVE, Ur Phencyclidine Scrn NEGATIVE, Ur Amphetamines Screen NEGATIVE, U Methamphetamin-MDMA NEGATIVE, U Benzodiazepines Scrn NEG ATIVE, Urine Cocaine Screen NEGATIVE, U Cannabinoids Screen POSITIVE H, Ur Drug Screen Comment 01/10/21 11:45: WBC 8.6, RBC 3.71 L, Hgb 11.1 L, Hct 31.6 L, MCV 85.2, MCH 29.9, MCHC 35.1, RDW Std Deviation 41.1, RDW Coeff of [place] 13.2, Plt Count 301, MPV 9.0, Immature Gran % (Auto) 0.400, Neut % (Auto) 75.3 H, Lymph % (Auto) 15.2 L, [place] % (Auto) 7.6, Eos % (Auto) 1.1, Baso % (Auto) 0.4, Absolute Neuts (auto) 6.5, Absolute Lymphs (auto) 1.30, Nucleated RBC % 0 01/10/21 11:45: Sodium 118 L*, Potassium 3.7, Chloride 81 L, Carbon Dioxide 28.0, Anion Gap 9, BUN 10, Creatinine 0.68, Estim Creat Clear Calc 46.43, Est GFR (MDRD) Af Amer 110, Est GFR (MDRD) Non-Af 91, BUN/Creatinine Ratio 14.7, Glucose 205 H, Calcium 8.8 01/10/21 11:45: Ethyl Alcohol < 3.0 Micro: Microbiology 01/10/21 12:20 Nasal Secretion SARS-CoV-2 Antigen (Rapid) - Final Assessment & Plan Assessment/Plan (1) Hyponatremia: PLAN: #Acute hyponatremia * etiology is unclear * will admit to PCU. sodium level is 118 * check serum osmolality, urine osmolality and urine sodium * consult nephrology * start on IV normal saline at 150cc/hr * check BMP q4hrly to monitor sodium level * sodium correction of 8-10mmol over next 24 hours * #Hypothyroidism: on synthroid #hypertension: not on any oral meds. unclear why. Monitor BP #Type 2 diabetes mellitus: on insulin lantus 30 units qpm. ISS. Accuchecks ACHS #History of bipolar disorder: on carbamazepine, seroquel and doxepin #Hyperlipidemia: on statin #History of breast cancer: stable. To follow up on outpatient basis DVT prophylaxis: lovenox Code status: full code * Patient was alert and oriented and able to tell me that she was okay with being intubated and also with CPR if needed. I did explain to her the different between full code, DNR CCA and DNR CCA and patient said clearly that she wanted to be full code. * Total [id number] time 16 minutes. Charges/Coding Visit Charges Inpatient E&M: 56075 Init Hosp L3 Procedures Hospitalists Procedures: 29523 Advncd Care Plan 30 Min
--- NOTE | 2021-01-10 13:20 | NURSING ---
DR KING FOR ER DOC
[2021-01-10 13:21] LABS: Bacteria RARE /hpf (None Seen); Squamous Epithelial Cells - UA 0-5 SEEN /hpf (5-10)
--- NOTE | 2021-01-10 13:26 | NURSING ---
PCU KORAM HYPONATREMIA
[2021-01-10 14:27] LABS: Osmolality, Serum 246 mOsm/KG (280-301)
--- NOTE | 2021-01-10 16:41 | CON.PCM.RE_ITS ---
Assessment & Plan Assessment/Plan (1) Hyponatremia: PLAN: The patient has hypoosmolar hyponatremia. The patient presented with serum sodium of 118 mmol/L today. The patient does have a prior history of hyponatremia, but serum sodium has never been this low. Her volume status appears to be euvolemic. There is no worrisome symptoms of severe hyponatremia such as headache, confusion, or intractable nausea. There is no need for 3% saline at this time. 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 Carbamazepine, for example, can lead to worsening SIADH. However, this is a diagnosis of exclusion. Therefore, I will check TSH to make sure that hypothyroidism is not undertreated. I will check cortisol level. If cortisol level is less than 10, we may need to check ACTH stimulation test. Agree with checking urine osmolality and urine sodium. I will also add urine potassium. I agree with checking serum sodium every 4 hours. If urine sodium is greater than 30 and urine osmolality is greater than 600, we should back off of normal saline. I will place the patient on fluid restriction. I encouraged her to increase solute intake such as protein. If preliminary studies suggest SIADH, she may also benefit from the addition of sodium chloride tablet if sodium fails to improve at a safe rate. I would recommend increasing serum sodium no more than 10 mmol/L/day to avoid osmotic demyelination. (2) Hypothyroidism (acquired): PLAN: I will check TSH. I would recommend continuing her home dose of levothyroxine. Undertreated hypothyroidism can contribute to hyponatremia. HPI Consult Data Date of Consult: 01/10/21 HPI Narrative Reason for Consultation: Hyponatremia HPI Narrative: JOSIE MCKEE, is a 70-year-old woman with past history of bipolar disorder, hypothyroidism, anxiety disorder, hyperlipidemia, breast cancer, irritable bowel syndrome, and hypertension. The patient presented to the hospital today because of altered mental status, hallucination, and weakness. The patient has been falling at home. The patient's tells me that she has fallen at least 3 times since returning from a admission at a psychiatric facility on 01/05/2021. The patient denies headaches, nausea, anorexia. She does complain of dizziness when standing up. There is no edema of the lower extremities orthopnea. She denies shortness of breath. Unfortunately, the patient cannot recall the names of her psychiatric medication including any new medication from the most recent admission to the psychiatric facility. [facility] Medical History (Updated 01/10/21 @ 16:[address] August Frias MD) Anemia Anxiety Arthritis Bipolar disorder Breast cancer Depression DM2 (diabetes mellitus, type 2) Essential (primary) hypertension GERD (gastroesophageal reflux disease) H/O malignant neoplasm of female breast Heart murmur Hyperlipidemia Hyponatremia IBS (irritable bowel syndrome) Neuropathy Psoriasis PTSD (post-traumatic stress disorder) Right bundle branch block (RBBB) TBI (traumatic brain injury) Home Medications lorazepam 1 mg PO TID PRN PRN 01/13/15 [History Last Taken 06/25/18 04:45 1 MG] multivitamin [Multiple Vitamins] 1 ea PO DAILY 06/26/18 [History Last Taken Unknown] ascorbate calcium (vitamin C) 500 mg tablet 500 mg PO DAILY 06/16/20 [History Last Taken Unknown] gabapentin 300 mg capsule 300 mg PO BID 06/16/20 [History Last Taken Unknown] insulin regular human 100 unit/mL injection solution 1 sliding scale dose SC USEASDIRECTD 06/16/20 [History Last Taken Unknown] levothyroxine 25 mcg tablet 25 mcg PO DAILY 06/16/20 [History Last Taken Unknown] quetiapine 300 mg tablet 300 mg PO DAILY 06/16/20 [History Last Taken Unknown] calcium carb 333 mg-vit D3 133 unit-mag ox 133 mg-zinc oxide 5 mg tab tab PO DAILY tab 10/02/20 [History Last Taken Unknown] doxepin 25 mg capsule 25 mg PO DAILY PRN 10/02/20 [History Last Taken Unknown] ferrous sulfate 325 mg (65 mg iron) tablet 80 mg PO DAILY 10/02/20 [History Last Taken Unknown] pravastatin 80 mg tablet 80 mg PO QHS tab 10/08/20 [History Last Taken Unknown] insulin regular human 100 unit/mL injection solution 15 unit SC TID #20 ml 10/23/20 [Rx Last Taken Unknown] Precision Xtra Monitor #1 ea NS 11/03/20 [Rx Last Taken Unknown] Precision Xtra Test #270 ea NS 11/03/20 [Rx Last Taken Unknown] blood sugar diagnostic #300 ea 11/03/20 [Rx Last Taken Unknown] blood-glucose meter #1 ea 11/03/20 [Rx Last Taken Unknown] carbamazepine 100 mg PO BID 11/06/20 [History Last Taken Unknown] multivitamin with minerals [Hair,Skin and Nails] 1 tab PO BID 11/06/20 [History Last Taken Unknown] insulin syringe-needle U-100 0.5 mL 30 gauge x 1/2 #100 ea 11/21/20 [Rx Last T aken Unknown] insulin glargine [Lantus U-100 Insulin] 30 unit SC QPM 12/21/20 [History Last Taken Unknown] Allergy/AdvReac Type Severity Reaction Status Date / Time codeine Allergy Other Verified 01/10/21 10:45 gluten Allergy Rash Verified 01/10/21 10:45 lithium Allergy Hives Verified 01/10/21 10:45 Family History Mother Congestive heart failure (CHF) Grandmother Congestive heart failure (CHF) Uncle , Patient states he during stress test, age late 50's CAD (coronary artery disease) Myocardial infarction Sudden cardiac Surgical History History of lumpectomy Social History Smoking Status: Current every day smoker tobacco type: cigarettes alcohol intake: never substance use type: marijuana what type of physical activity do you participate in: none ROS ROS Narrative 10 out of 10 review of system was completed. Review of system is as per HPI, otherwise noncontributory. Physical Exam Narrative General appearance: Alert, oriented x3, no distress. HEENT: Normocephalic, atraumatic. Mucous membrane is moist, no mucosal erythema. PERRLA, EOMI. Hearing is intact. Neck: Supple, no JVD. Heart: Normal S1, S2. No rubs, murmur, gallops, or click. Lungs: Clear to auscultation bilaterally. Abdomen: Normal bowel sound, soft, nontender, no guarding or rebound. Extremity: No clubbing, cyanosis, or edema. Full passive range of motion. Neurologic: No focal neurologic deficits. Cranial nerves II through XII are grossly intact. Muscle strength are 5 out of 5 bilaterally. Skin: No rash. Skin is warm and dry. Psychiatric: Speech is pressured. Affect is animated. Lab / Micro Data Result Diagrams: 01/10/21 11:45 01/10/21 11:45 Labs: Laboratory Results - last 24 hr 01/10/21 11:35: Urine Opiates Screen NEGATIVE, Urine Methadone Screen NEGATIVE, Ur Barbiturates Screen NEGATIVE, Ur Phencyclidine Scrn NEGATIVE, Ur Amphetamines Screen NEGATIVE, U Methamphetamin-MDMA NEGATIVE, U Benzodiazepines Scrn NEGATIVE, Urine Cocaine Screen NEGATIVE, U Cannabinoids Screen POSITIVE H, Ur Drug Screen Comment 01/10/21 11:35: Urine Color Yellow, Urine Clarity Sl. Cloudy, Urine pH 7.0, Ur Specific [place] 1.010, Urine Protein 30 H, Urine Glucose (UA) 100 H, Urine Ketones Negative, Urine Occult Blood Negative, Urine Nitrite Negative, Urine Bilirubin Negative, Urine Urobilinogen Normal, Ur Leukocyte Esterase Negative, Urine RBC 0 SEEN, Urine WBC 0 SEEN, Ur Squamous Epith Cells 0-5 SEEN, Urine Bacteria RARE, Urine Mucus 0 SEEN 01/10/21 11:45: WBC 8.6, RBC 3.71 L, Hgb 11.1 L, Hct 31.6 L, MCV 85.2, MCH 29.9, MCHC 35.1, RDW Std Deviation 41.1, RDW Coeff of [place] 13.2, Plt Count 301, MPV 9.0, Immature Gran % (Auto) 0.400, Neut % (Auto) 75.3 H, Lymph % (Auto) 15.2 L, [place] % (Auto) 7.6, Eos % (Auto) 1.1, Baso % (Auto) 0.4, Absolute Neuts (auto) 6.5, Absolute Lymphs (auto) 1.30, Nucleated RBC % 0 01/10/21 11:45: Sodium 118 L*, Potassium 3.7, Chloride 81 L, Carbon Dioxide 28.0, Anion Gap 9, BUN 10, Creatinine 0.68, Estim Creat Clear Calc 46.43, Est GFR (MDRD) Af Amer 110, Est GFR (MDRD) Non-Af 91, BUN/Creatinine Ratio 14.7, Glucose 205 H, Calcium 8.8 01/10/21 11:45: Ethyl Alcohol < 3.0 01/10/21 11:45: Serum Osmolality 246 L Micro: Microbiology 01/10/21 12:20 Nasal Secretion SARS-CoV-2 Antigen (Rapid) - Final
[2021-01-10 17:34] LABS: Anion Gap 9 (5-15); BUN 9 mg/dL (7-18); BUN/Creat Ratio 14.4 RATIO (10-20); Calcium,Total 8.7 mg/dL (8.5-10.1); Chloride 88 mmol/L (98-107); Creatinine, Serum 0.63 mg/dL (0.55-1.02); EST Glomerular Filtration Rate 99 mL/min (>60); Est Glom Filt Rate - Afr Amer 120 mL/min (>60); Estimated Creatinine Clearance 46.43 ml/min; Glucose 218 mg/dL (74-106); Potassium 3.5 mmol/L (3.5-5.1); Sodium Level 123 mmol/L (136-145)
--- NOTE | 2021-01-10 18:19 | PCS.PANDOC ---
PANDEMIC DOCUMENTATION INITIATED: Date: 12/29/2020 Time: 190
[2021-01-10 19:11] LABS: Urine Sodium 47 mmol/L (Not Establ.)
[2021-01-10 19:17] LABS: Osmolality, Urine 149 mOsm/KG
[2021-01-10] MEDS: Insulin Lispro 100 UNIT/ML INSULN.PEN SC (21:27)
[2021-01-10] MEDS: Gabapentin 300 MG Capsule PO (21:28)
[2021-01-10] MEDS: Acetaminophen 325 MG Tablet 650 MG PO (21:28)
[2021-01-10 21:51] LABS: Anion Gap 8 (5-15); BUN 8 mg/dL (7-18); BUN/Creat Ratio 11.7 RATIO (10-20); Calcium,Total 8.5 mg/dL (8.5-10.1); Chloride 93 mmol/L (98-107); Creatinine, Serum 0.68 mg/dL (0.55-1.02); EST Glomerular Filtration Rate 90 mL/min (>60); Est Glom Filt Rate - Afr Amer 109 mL/min (>60); Estimated Creatinine Clearance 46.43 ml/min; Glucose 215 mg/dL (74-106); Potassium 3.7 mmol/L (3.5-5.1); Sodium Level 127 mmol/L (136-145)
[2021-01-10 22:51] LABS: Bedside Glucose 218 mg/dL (70-110)
[2021-01-10] MEDS: Pravastatin 80 MG Tablet PO (23:15)
[2021-01-10] MEDS: OXcarbazepine 300 MG Tablet PO (23:15)
[2021-01-11] VITALS (11 sets, daily range): BP systolic 110–139; BP diastolic 56–97; PULSE 76–125; RESP 16–21; TEMP 36.3–36.8; O2SAT 95–99
[2021-01-11] MEDS: Levothyroxine 25 MCG TABLET PO (03:01)
[2021-01-11 06:55] LABS: Bedside Glucose 136 mg/dL (70-110)
[2021-01-11 07:04] LABS: Absolute Lymphocyte Count 1.78 X10^3/uL (0.83-4.51); Absolute Neutrophil Count 3.9 X10^3/uL (2.0-7.7); Basophil# 0.05 X10^3/uL; Basophil% 0.8 % (0-1); Eosinophil# 0.13 X10^3/uL; Hematocrit 31.7 % (37-47); Hemoglobin 10.8 g/dL (12.0-15.0); Lymphocyte # 1.78 X10^3/ul (0.83-4.51); Lymphocyte % 27.6 % (19-41); Mean Corp Hgb Conc 34.1 g/dL (32-36); Mean Corpuscular Hgb 29.9 pg (27.0-32.0); Mean Corpuscular Volume 87.8 fL (81-99); Mean Platelet Vol. 9.1 fl (6.2-12.0); Monocyte% 9.3 % (0-10); NRBC Flagged by Analyzer 0 % (0-5); Neutrophil # 3.87 X10^3/uL (2.7-7.7); Neutrophil % 59.8 % (47-70); Platelet Count 303 K/mm3 (150-450); RBC Distribution Width CV 13.6 % (11.6-14.6); Red Blood Count 3.61 M/mm3 (4.2-5.4); White Blood Count 6.5 K/mm3 (4.4-11.0)
[2021-01-11 07:39] LABS: Anion Gap 7 (5-15); BUN 8 mg/dL (7-18); BUN/Creat Ratio 12.2 RATIO (10-20); Calcium,Total 9.1 mg/dL (8.5-10.1); Chloride 94 mmol/L (98-107); Creatinine, Serum 0.66 mg/dL (0.55-1.02); EST Glomerular Filtration Rate 94 mL/min (>60); Est Glom Filt Rate - Afr Amer 114 mL/min (>60); Estimated Creatinine Clearance 46.43 ml/min; Glucose 130 mg/dL (74-106); Potassium 3.6 mmol/L (3.5-5.1); Sodium Level 127 mmol/L (136-145)
[2021-01-11] MEDS: Meloxicam 7.5 MG Tablet PO (08:41)
[2021-01-11] MEDS: Gabapentin 300 MG Capsule PO ×2 (08:41→22:57)
[2021-01-11] MEDS: Pantoprazole Sodium 20 MG Tablet PO (08:41)
[2021-01-11] MEDS: QUEtiapine 100 MG Tablet 300 MG PO (08:41)
[2021-01-11] MEDS: Ferrous Sulfate 325 MG Tablet PO (08:41)
[2021-01-11] MEDS: OXcarbazepine 300 MG Tablet PO ×2 (08:41→22:58)
[2021-01-11 12:43] LABS: Anion Gap 7 (5-15); BUN 7 mg/dL (7-18); Calcium,Total 9.1 mg/dL (8.5-10.1); Chloride 92 mmol/L (98-107); Creatinine, Serum 0.54 mg/dL (0.55-1.02); EST Glomerular Filtration Rate 118 mL/min (>60); Est Glom Filt Rate - Afr Amer 143 mL/min (>60); Estimated Creatinine Clearance 46.43 ml/min; Glucose 158 mg/dL (74-106); Potassium 3.7 mmol/L (3.5-5.1); Sodium Level 128 mmol/L (136-145)
[2021-01-11 12:51] LABS: Bedside Glucose 147 mg/dL (70-110)
--- NOTE | 2021-01-11 13:56 | PN.HOSP_ITS ---
Subjective Subjective Patient seen and examined. She had no active complaints today, and review of systems is otherwise negative. SHe has remained hemodynamically stable. Objective Data Objective Data Vital Signs: Vital Signs Temp Pulse Resp BP Pulse Ox 97.3 F L 84 18 110/80 99 01/11/21 12:11 01/11/21 12:11 01/11/21 12:11 01/11/21 12:11 01/11/21 12:11 Oxygen Delivery Method Room Air Weight: 137 lb 12.623 oz Body Mass Index (BMI) 22.9 Intake & Output: Intake and Output for Last 24 Hours 01/09/21 01/10/21 01/11/21 23:59 23:59 23:59 Intake Total 1507.5 / 1507.5 880 / 880 Output Total 650 / 650 Balance 1507.5 / 1507.5 230 / 230 Lab / Micro Data Result Diagrams: 01/11/21 06:33 01/11/21 12:06 Labs: Laboratory Results - last 24 hr 01/10/21 11:45: Serum Osmolality 246 L 01/10/21 17:02: Sodium 123 L, Potassium 3.5, Chloride 88 L, Carbon Dioxide 26.0, Anion Gap 9, BUN 9, Creatinine 0.63, Estim Creat Clear Calc 46.43, Est GFR (MDRD) Af Amer 120, Est GFR (MDRD) Non-Af 99, BUN/Creatinine Ratio 14.4, Glucose 218 H, Calcium 8.7 01/10/21 17:02: TSH 1.00 01/10/21 18:50: Urine Osmolality 149, Ur Random Sodium 47, Urine Potassium 6.0 01/10/21 21:08: POC Glucose 218 H 01/10/21 21:20: Sodium 127 L, Potassium 3.7, Chloride 93 L, Carbon Dioxide 26.0, Anion Gap 8, BUN 8, Creatinine 0.68, Estim Creat Clear Calc 46.43, Est GFR (MDRD) Af Amer 109, Est GFR (MDRD) Non-Af 90, BUN/Creatinine Ratio 11.7, Glucose 215 H, Calcium 8.5 01/11/21 06:16: POC Glucose 136 H 01/11/21 06:33: Sodium 127 L, Potassium 3.6, Chloride 94 L, Carbon Dioxide 26.0, Anion Gap 7, BUN 8, Creatinine 0.66, Estim Creat Clear Calc 46.43, Est GFR (MDRD) Af Amer 114, Est GFR (MDRD) Non-Af 94, BUN/Creatinine Ratio 12.2, Glucose 130 H, Calcium 9.1 01/11/21 06:33: WBC 6.5, RBC 3.61 L, Hgb 10.8 L, Hct 31.7 L, MCV 87.8, MCH 29.9, MCHC 34.1, RDW Std Deviation 44.0 H, RDW Coeff of [place] 13.6, Plt Count 303, MPV 9.1, Immature Gran % (Auto) 0.500, Neut % (Auto) 59.8, Lymph % (Auto) 27.6, [place] % (Auto) 9.3, Eos % (Auto) 2.0, Baso % (Auto) 0.8, Absolute Neuts (auto) 3.9, Absolute Lymphs (auto) 1.78, Nucleated RBC % 0 01/11/21 12:06: Sodium 128 L, Potassium 3.7, Chloride 92 L, Carbon Dioxide 29.0, Anion Gap 7, BUN 7, Creatinine 0.54 L, Estim Creat Clear Calc 46.43, Est GFR (MDRD) Af Amer 143, Est GFR (MDRD) Non-Af 118, BUN/Creatinine Ratio 13.0, Glucose 158 H, Calcium 9.1 01/11/21 12:21: POC Glucose 147 H Micro: Microbiology 01/10/21 12:20 Nasal Secretion SARS-CoV-2 Antigen (Rapid) - Final Physical Exam Const alert, oriented x3 and no apparent distress General Appearance: cooperative Exam Limitations: no limitations HEENT normocephalic, head/scalp atraumatic, hearing grossly normal bilaterally and moist oral mucous membranes Head and Scalp: normocephalic Eyes PERRL, EOMs intact bilaterally and conjunctivae normal Neck no lymphadenopathy Resp normal respiratory effort, no retractions, no use of accessory muscles and clear to auscultation bilaterally Cardio regular rate, regular rhythm, S1 normal heart sound, S2 normal heart sound and no murmurs GI normal to inspection, nondistended, normoactive bowel sounds, soft to palpation and non-tender Extremity normal to inspection, full ROM and no clubbing, cyanosis or edema Peripheral Pulses: Yes pulses 2+ throughout Skin no rashes or lesions noted Neuro oriented x3, CN's II-XII intact bilaterally and moves all extremities Sensorium / Orientation: awake and alert Motor Exam: strength 5/5 throughout Psych affect normal Assessment & Plan Assessment/Plan (1) Hyponatremia: PLAN: #Acute hypo-osmolar hyponatremia * nephrology on board. * patient on fluid restriction. * sodium is 128 today. Will dc IV fluids * continue fluid restriction to 1500cc daily. * TSH is 1. * serum cortisol level is pending. * #Acute metabolic encephalopathy * per her nurse, patient became more lethargic after getting her seroquel dose this morning. * It appears patient has not been taking seroquel on outpatient basis. Patient's vitals are stable * dc seroquel and monitor vitals. * there is also concern for possible untreated sleep apnea, for which she will need follow up on outpatient basis. * #Hypothyroidism: on synthroid. TSH is 1. #hypertension: not on any oral meds. BP has been normal since admission. #Type 2 diabetes mellitus: on insulin lantus 30 units qpm. ISS. Accuchecks ACHS #History of bipolar disorder: on carbamazepine, seroquel and doxepin. DC seroquel as she has not been taking it. #Hyperlipidemia: on statin #History of breast cancer: stable. To follow up on outpatient basis DVT prophylaxis: lovenox Code status: full code * Disposition: will need to be evaluated by the mental health crises team when medically stable. Charges/Coding Visit Charges Inpatient E&M: 66803 Subs Hosp L2
--- NOTE | 2021-01-11 14:27 | NURSING ---
Lengthy discussion w/pt's regarding pt receiving Seroquel today as this was prescribed on her home medication list. Pt's upset, states he gave a list to a nurse last night and this is the 3rd time he has had to give us the med list. states that pt manages her own meds and he does not know what exactly she takes. Reports recent change of meds related to recent inpt psych stay. States pt has many ziploc baggies at home that she has pills in. Says Krystal sends some of her meds pre-packaged and some come in a bottle. is unsure of how much insulin the patient gives herself. states that pt has not always been like this, but for the last 10 years since her brother it has been a downhill struggle with her mental health.
--- NOTE | 2021-01-11 14:45 | PN.RENAL_ITS ---
Subjective Subjective Following for hyponatremia. The patient is currently sleepy. She has just received Seroquel earlier today. Prior to that, she has been doing well with oral intake. There was no headache or ataxia today per RN. Objective Data Objective Data Vital Signs: Vital Signs Temp Pulse Resp BP Pulse Ox 97.3 F L 84 18 110/80 99 01/11/21 12:11 01/11/21 12:11 01/11/21 12:11 01/11/21 12:11 01/11/21 12:11 Oxygen Delivery Method Room Air Weight: 62.5 kg Body Mass Index (BMI) 22.9 Intake & Output: Intake and Output for Last 24 Hours 01/09/21 01/10/21 01/11/21 23:59 23:59 23:59 Intake Total 1507.5 / 1507.5 880 / 880 Output Total 650 / 650 Balance 1507.5 / 1507.5 230 / 230 Lab / Micro Data Result Diagrams: 01/11/21 06:33 01/11/21 12:06 Labs: Laboratory Results - last 24 hr 01/10/21 17:02: Sodium 123 L, Potassium 3.5, Chloride 88 L, Carbon Dioxide 26.0, Anion Gap 9, BUN 9, Creatinine 0.63, Estim Creat Clear Calc 46.43, Est GFR (MDRD) Af Amer 120, Est GFR (MDRD) Non-Af 99, BUN/Creatinine Ratio 14.4, Glucose 218 H, Calcium 8.7 01/10/21 17:02: TSH 1.00 01/10/21 18:50: Urine Osmolality 149, Ur Random Sodium 47, Urine Potassium 6.0 01/10/21 21:08: POC Glucose 218 H 01/10/21 21:20: Sodium 127 L, Potassium 3.7, Chloride 93 L, Carbon Dioxide 26.0, Anion Gap 8, BUN 8, Creatinine 0.68, Estim Creat Clear Calc 46.43, Est GFR (MDRD) Af Amer 109, Est GFR (MDRD) Non-Af 90, BUN/Creatinine Ratio 11.7, Glucose 215 H, Calcium 8.5 01/11/21 06:16: POC Glucose 136 H 01/11/21 06:33: Sodium 127 L, Potassium 3.6, Chloride 94 L, Carbon Dioxide 26.0, Anion Gap 7, BUN 8, Creatinine 0.66, Estim Creat Clear Calc 46.43, Est GFR (MDRD) Af Amer 114, Est GFR (MDRD) Non-Af 94, BUN/Creatinine Ratio 12.2, Glucose 130 H, Calcium 9.1 01/11/21 06:33: WBC 6.5, RBC 3.61 L, Hgb 10.8 L, Hct 31.7 L, MCV 87.8, MCH 29.9, MCHC 34.1, RDW Std Deviation 44.0 H, RDW Coeff of Harrison 13.6, Plt Count 303, MPV 9.1, Immature Gran % (Auto) 0.500, Neut % (Auto) 59.8, Lymph % (Auto) 27.6, Haskell % (Auto) 9.3, Eos % (Auto) 2.0, Baso % (Auto) 0.8, Absolute Neuts (auto) 3.9, Absolute Lymphs (auto) 1.78, Nucleated RBC % 0 01/11/21 12:06: Sodium 128 L, Potassium 3.7, Chloride 92 L, Carbon Dioxide 29.0, Anion Gap 7, BUN 7, Creatinine 0.54 L, Estim Creat Clear Calc 46.43, Est GFR (MDRD) Af Amer 143, Est GFR (MDRD) Non-Af 118, BUN/Creatinine Ratio 13.0, Glucose 158 H, Calcium 9.1 01/11/21 12:21: POC Glucose 147 H Micro: Microbiology 01/10/21 12:20 Nasal Secretion SARS-CoV-2 Antigen (Rapid) - Final Physical Exam Narrative General appearance: Sleepy today but arousable. Heart: Normal S1, S2. No rubs, murmur, gallops, or click. Lungs: Clear to auscultation bilaterally. Abdomen: Normal bowel sound, soft, nontender, no guarding or rebound. Extremity: No clubbing, cyanosis, or edema. Assessment & Plan Assessment/Plan (1) Hyponatremia: PLAN: The patient has hypoosmolar hyponatremia. The patient presented with serum sodium of 118 mmol/L today. The patient does have a prior history of hyponatremia, but serum sodium has never been this low. Her volume status appears to be euvolemic. There is no worrisome symptoms of severe hyponatremia such as headache, confusion, or intractable nausea. There is no need for 3% saline at this time. 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 Carbamazepine, for example, can lead to worsening SIADH. However, this is a diagnosis of exclusion. TSH is normal. Cortisol level was sent but is still pending. If cortisol level is less than 10, we may need to check ACTH stimulation test. Urine sodium from 01/10/2021 was 47, and urine osmolality was 149. This is consistent with SIADH although urine osmolality is borderline with suggest that she also has low solute intake. Serum sodium has been improving at a safe rate. Serum sodium has increased by exactly 10 mmol/L in the last 24 hours. She is not in danger of osmotic demyelination. Therefore, we can decrease the frequency of sodium checks to every 6 hours today. We may need to restart normal saline if she is too sleepy to eat later today. However, I will wait for the next serum sodium before changing therapy. (2) Hypothyroidism (acquired): PLAN: I will check TSH. I would recommend continuing her home dose of levothyroxine. Undertreated hypothyroidism can contribute to hyponatremia.
[2021-01-11 18:56] LABS: Bedside Glucose 118 mg/dL (70-110)
[2021-01-11 20:45] LABS: Anion Gap 6 (5-15); BUN 10 mg/dL (7-18); BUN/Creat Ratio 11.9 RATIO (10-20); Calcium,Total 9.4 mg/dL (8.5-10.1); Chloride 91 mmol/L (98-107); Creatinine, Serum 0.84 mg/dL (0.55-1.02); EST Glomerular Filtration Rate 71 mL/min (>60); Est Glom Filt Rate - Afr Amer 86 mL/min (>60); Estimated Creatinine Clearance 55.28 ml/min; Glucose 160 mg/dL (74-106); Potassium 4.2 mmol/L (3.5-5.1); Sodium Level 127 mmol/L (136-145)
[2021-01-11] MEDS: Insulin Lispro 100 UNIT/ML INSULN.PEN SC (22:56)
[2021-01-11] MEDS: Pravastatin 80 MG Tablet PO (22:57)
[2021-01-11] MEDS: 0.9% Saline Lock 10 ML Syringe IV (23:03)
[2021-01-12 00:31] LABS: Bedside Glucose 168 mg/dL (70-110)
[2021-01-12 03:00] VITALS: PULSE 89
[2021-01-12 05:00] VITALS: BP 135/86; PULSE 83; RESP 17; TEMP 36.8; O2SAT 97
[2021-01-12] MEDS: Levothyroxine 25 MCG TABLET PO (06:56)
[2021-01-12] MEDS: Insulin Lispro 100 UNIT/ML INSULN.PEN SC ×2 (06:56→11:51)
[2021-01-12 06:59] VITALS: PULSE 78
[2021-01-12 07:06] LABS: Bedside Glucose 216 mg/dL (70-110)
[2021-01-12 07:42] VITALS: BP 132/75; PULSE 77; RESP 16; TEMP 36.8; O2SAT 98
[2021-01-12] MEDS: Pantoprazole Sodium 20 MG Tablet PO (07:49)
[2021-01-12] MEDS: Magnesium Chloride 64 MG Delay Rel.Tablet 128 MG PO (07:49)
[2021-01-12] MEDS: OXcarbazepine 300 MG Tablet PO (07:49)
[2021-01-12] MEDS: Meloxicam 7.5 MG Tablet PO (07:49)
[2021-01-12] MEDS: Gabapentin 300 MG Capsule PO (07:49)
[2021-01-12] MEDS: Lidocaine 5% Patch 1 PATCH TOPICAL (07:50)
[2021-01-12] MEDS: Ferrous Sulfate 325 MG Tablet PO (07:50)
[2021-01-12] MEDS: Acetaminophen 325 MG Tablet 650 MG PO (07:56)
--- NOTE | 2021-01-12 09:49 | NURSING ---
Called Crisis and spoke with Rtacy. Requested we fax over all records from this stay.
[2021-01-12 11:00] VITALS: PULSE 74
--- NOTE | 2021-01-12 11:19 | DS.PCM_ITS ---
Providers Date of Admission: 01/10/21 Primary Care Physician: FERNANDEZ Dutton Consultations 01/10/21 14:14 Consult: Nephrology Routine Consulting Provider: August Frias Reason for Consult: acute hyponatremia EMERGENT Consult: No MD Notified: Yes Date Notified: 01/10/21 Time Notified: 13:34 Method of Notification: Text Reason For Visit: ACUTE HYPONATREMIA Diagnosis Discharge Diagnosis (1) Hyponatremia: Status: Acute Code(s): E87.1 - Hypo-osmolality and hyponatremia (2) Hypothyroidism (acquired): Status: Chronic Code(s): E03.9 - Hypothyroidism, unspecified Medications at Discharge Home Medications Precision Xtra Monitor #1 ea NS 11/03/20 Precision Xtra Test #270 ea NS 11/03/20 blood sugar diagnostic #300 ea 11/03/20 blood-glucose meter #1 ea 11/03/20 insulin syringe-needle U-100 0.5 mL 30 gauge x 1/2 #100 ea 11/21/20 Levemir U-100 Insulin SUBCUT 01/11/21 atorvastatin 80 mg PO QHS 01/11/21 gabapentin [Neurontin] 01/11/21 haloperidol 5 mg PO QHS 01/11/21 insulin aspart U-100 [Novolog U-100 Insulin aspart] 01/11/21 levothyroxine 25 mcg PO DAILY 01/11/21 lidocaine 1 patch TOPICAL DAILY 01/11/21 magnesium oxide 400 mg PO DAILY 01/11/21 meloxicam 7.5 mg PO DAILY 01/11/21 nicotine 01/11/21 omeprazole 20 mg PO DAILY 01/11/21 oxcarbazepine 300 mg PO BID 01/11/21 Hospital Course Operations None Procedures None Summary of Care Provided Minutes Spent on Discharge: 45 Hospital Course: JOSIE MCKEE, is a 70 F with an extensive PMH as outlined who was admitted via the ED on 01/10/2021 for a mental health evaluation. She has a history of bipolar disorder. She was seen in a psych facility for a few days a few weeks ago, and was discharged home. She had been recently acting more bizarrely, and had been talking to people from the past, and also seeing people. She said she hadnt been compliant with her meds for a few days. She denied any nausea, vomiting, and fever or chills. Review of systems was otherwise negative. Plan was to clear her for admission to a mental health facility, labs showed a low sodium of 118. CBC showed hemoglobin of 11.1 and WBC of 8.6 with platelets of 301. BMP showed sodium of 118 and anion gap of 9, as well as K of 3.7 and chloride of 28. She has had episodic low sodium in the past. She was admitted to be managed for acute hyponatremia. Nephrology was consulted and she was hydrated with IVF. Sodium gradually trended up to 127. Sujatha mauro subseqeuently refused further lab draws. She however remained stable. She was declared medically stable for discharge and so was discharged to a psych facility on 01/12/2021. Patient seen and examined prior to discharge. She had no complaints and felt well. Review of systems otherwise negative. Labs and vitals reviewed. Medication reviewed and reconciled. Physical Exam Const alert, oriented x3 and no apparent distress General Appearance: cooperative Orientation / Consciousness: awake Exam Limitations: no limitations HEENT normocephalic, head/scalp atraumatic, hearing grossly normal bilaterally and moist oral mucous membranes Eyes PERRL, EOMs intact bilaterally and conjunctivae normal Neck no lymphadenopathy Resp normal respiratory effort, no retractions, no use of accessory muscles and clear to auscultation bilaterally Cardio regular rate, regular rhythm, S1 normal heart sound, S2 normal heart sound and no murmurs GI normal to inspection, nondistended, normoactive bowel sounds, soft to palpation and non-tender Extremity normal to inspection, full ROM and no clubbing, cyanosis or edema Skin no rashes or lesions noted Neuro oriented x3, CN's II-XII intact bilaterally and moves all extremities Sensorium / Orientation: awake and alert Motor Exam: strength 5/5 throughout Psych affect normal Weight / BMI Weight Weight: 137 lb 12.623 oz Body Mass Index (BMI) 22.9 ABG / Lab / Microbiology Data Result Diagrams: 01/11/21 06:33 01/11/21 19:54 Laboratory: Laboratory Results - last 24 hr 01/10/21 21:20: Cortisol 6.40 01/11/21 12:06: Sodium 128 L, Potassium 3.7, Chloride 92 L, Carbon Dioxide 29.0, Anion Gap 7, BUN 7, Creatinine 0.54 L, Estim Creat Clear Calc 46.43, Est GFR (MDRD) Af Amer 143, Est GFR (MDRD) Non-Af 118, BUN/Creatinine Ratio 13.0, Glucose 158 H, Calcium 9.1 01/11/21 12:21: POC Glucose 147 H 01/11/21 17:48: POC Glucose 118 H 01/11/21 19:54: Sodium 127 L, Potassium 4.2, Chloride 91 L, Carbon Dioxide 30.0, Anion Gap 6, BUN 10, Creatinine 0.84, Estim Creat Clear Calc 55.28, Est GFR (MDRD) Af Amer 86, Est GFR (MDRD) Non-Af 71, BUN/Creatinine Ratio 11.9, Glucose 160 H, Calcium 9.4 01/11/21 22:54: POC Glucose 168 H 01/12/21 06:54: POC Glucose 216 H Microbiology: Microbiology 01/10/21 12:20 Nasal Secretion SARS-CoV-2 Antigen (Rapid) - Final D/C Instructions Discharge Diet: Low fat / Low cholesterol Discharge Activity: Return to Normal Activity Weight Bearing Status: Weight bearing as tolerated Call your doctor if you observe: Fever of 101 or Higher, Shortness of breath, Swelling in the ankles and Increased palpitations (irregular heartbeat) Meaningful Use Info Meaningful Use Diagnoses (Choose all that apply): None applicable Discharge Plan Admission Admit Date/Time: 01/10/21 13:35 Primary Reason for Your Visit: acute on chronic hyponatremia Attending Provider: Rachel Mcqueen Primary Care Provider: Suyapa English Consulting Providers: August Frias Instructions Patient Instructions: Hyponatremia Dc, ED Hyponatremia Additional Instructions / Restrictions: patient counseled on fluid restriction to 1500cc daily. Discharge Orders/Prescriptions Prescriptions: Continued atorvastatin 80 mg tablet 80 mg PO QHS RF: 0 haloperidol 5 mg tablet 5 mg PO QHS RF: 0 oxcarbazepine 300 mg tablet 300 mg PO BID RF: 0 meloxicam 7.5 mg tablet 7.5 mg PO DAILY RF: 0 magnesium oxide 400 mg (241.3 mg magnesium) tablet 400 mg PO DAILY RF: 0 omeprazole 20 mg capsule,delayed release(DR/EC) 20 mg PO DAILY RF: 0 levothyroxine 25 mcg tablet 25 mcg PO DAILY RF: 0 lidocaine 5 % adhesive patch,medicated 1 patch topical DAILY RF: 0 nicotine 14 mg/24 hr patch 24 hour RF: 0 insulin aspart U-100 [Novolog U-100 Insulin aspart] 100 unit/mL solution RF: 0 Levemir U-100 Insulin 100 unit/mL solution SUBCUT RF: 0 gabapentin [Neurontin] 300 mg capsule RF: 0 (DME) blood-glucose meter [Precision Xtra Monitor] Misc See Rx Instructions .ROUTE .MEDSUPPLY Qty: 1 RF: 0 (DME) Precision Xtra Test Strip See Rx Instructions .ROUTE .MEDSUPPLY Qty: 270 RF: 3 (DME) blood-glucose meter [Precision Xtra Monitor] Misc See Rx Instructions .ROUTE .MEDSUPPLY Qty: 1 RF: 0 (DME) Precision Xtra Test Strip See Rx Instructions .ROUTE .MEDSUPPLY Qty: 300 RF: 3 (DME) insulin syringe-needle U-100 [BD Insulin Syringe Ultra-Fine] 0.5 mL 30 gauge x 1/2 syringe See Rx Instructions .ROUTE .MEDSUPPLY Qty: 100 RF: 3 Referrals / Follow Up: Suyapa English ENVIRONMENTAL STUDIES PROGRAM DIRECTOR-C [Primary Care Provider] - Disposition Disposition (needs filled in before D/C Order can be placed): Psychiatric Hospital or Unit Charges/Coding Visit Charges Inpatient E&M: 58298 Disch Hosp
--- NOTE | 2021-01-12 11:20 | CASEMGMT ---
SOCIAL WORK SW assessed patient on 01/10/21. Discussed case with nursing and patient's . believes patient would benefit from inpatient psych for stabilization and has been speaking with patient's Community Support Specialist through [facility]. reports [facility] will be reaching out to this worker and is also in agreement with inpatient psych hospitalization. This worker to facilitate placement. Call to [facility], case reviewed with intake. Referral faxed at this time. Plan: Pending acceptance at [facility] [place] Castillo, CUSTOMER SUCCESS ASSOCIATE, SUPERVISING LIBRARIAN
[2021-01-12 12:11] LABS: Bedside Glucose 261 mg/dL (70-110)
--- NOTE | 2021-01-12 13:07 | CM.ED ---
SOCIAL WORK Call to [facility] to check on status of referral. Referral still under review at this time. Tobias Castillo, OFFICE RN, SWEET POTATO DISINTEGRATOR
--- NOTE | 2021-01-12 13:50 | PHA.DC.MR ---
Pharmacy Service has performed discharge medication reconciliation for this patient. The patient's discharge medication list was reviewed for discrepancies and discrepancies were resolved. Home Medications Precision Xtra Monitor #1 ea NS 11/03/20 Precision Xtra Test #270 ea NS 11/03/20 blood sugar diagnostic #300 ea 11/03/20 blood-glucose meter #1 ea 11/03/20 insulin syringe-needle U-100 0.5 mL 30 gauge x 1/2 #100 ea 11/21/20 Levemir U-100 Insulin SUBCUT 01/11/21 atorvastatin 80 mg PO QHS 01/11/21 gabapentin [Neurontin] 300 mg PO BID 01/11/21 haloperidol 5 mg PO QHS 01/11/21 insulin aspart U-100 [Novolog U-100 Insulin aspart] 01/11/21 levothyroxine 25 mcg PO DAILY 01/11/21 lidocaine 1 patch TOPICAL DAILY 01/11/21 magnesium oxide 400 mg PO DAILY 01/11/21 meloxicam 7.5 mg PO DAILY 01/11/21 nicotine 01/11/21 omeprazole 20 mg PO DAILY 01/11/21 oxcarbazepine 300 mg PO BID 01/11/21 docusate sodium 100 mg PO DAILY 01/12/21
[2021-01-12 14:00] VITALS: BP 124/84; PULSE 72; RESP 16; TEMP 36.9; O2SAT 97
--- NOTE | 2021-01-12 14:01 | CASEMGMT ---
SOCIAL WORK Patient accepted to [facility] psych unit by Dr. Mobley. Nurse to call report to [phone]. [place] Slip added to chart. Transportation scheduled with [facility] for a 2:30p berry picker. Staff updated. Call to patient's to update. Plan: [facility].
--- NOTE | 2021-01-12 14:50 | NURSING ---
PT REFUSING TO GO TO [place]. TRANSPORT PRESENT TO TAKE PT. PT YELLING, CUSSING, BECOMING VERY AGITATED. ALVARO,DOMESTIC TECHNICIAN, SPOKE TO PT AND CALMED PT DOWN. PT AGREEABLE TO TAKING PO ATIVAN FOR ANXIETY. BIBLE PROVIDED FOR EMOTIONAL SUPPORT. PT CALM AND COOPERATIVE UPON LEAVING HOSP.
[2021-01-12] MEDS: LORazepam 1 MG Tablet PO (15:01)
== END 2021-01-12 15:10 | DRG 643 ==
LOC: ED 13:25 → PCU 13:39
PROVIDERS: Internal Medicine Nephrology; Admitting Provider Student in an Organized Health Care Education/Training Program; Emergency Provider Emergency Medicine; PCP Nurse Practitioner Adult Health; Visit Provider Student in an Organized Health Care Education/Training Program
DX: E22.2 Syndrome of inappropriate secretion of antidiuretic hormone (principal); G93.41 Metabolic encephalopathy; W19.XXXA Unspecified fall, initial encounter; Z91.81 History of falling; Y93.9 Activity, unspecified; Y92.009 Unspecified place in unspecified non-institutional (private) residence as the place of occurrence of the external cause; E03.9 Hypothyroidism, unspecified; T50.905A Adverse effect of unspecified drugs, medicaments and biological substances, initial encounter; E78.5 Hyperlipidemia, unspecified; D64.9 Anemia, unspecified; F31.9 Bipolar disorder, unspecified; F43.10 Post-traumatic stress disorder, unspecified; G89.29 Other chronic pain; I10 Essential (primary) hypertension; I25.10 Atherosclerotic heart disease of native coronary artery without angina pectoris; I25.2 Old myocardial infarction; K21.9 Gastro-esophageal reflux disease without esophagitis; K58.9 Irritable bowel syndrome, unspecified; E11.40 Type 2 diabetes mellitus with diabetic neuropathy, unspecified; L40.9 Psoriasis, unspecified; M19.90 Unspecified osteoarthritis, unspecified site; Z66 Do not resuscitate; Z91.14 Patient's other noncompliance with medication regimen; Z85.3 Personal history of malignant neoplasm of breast; Z87.820 Personal history of traumatic brain injury; Z79.4 Long term (current) use of insulin; Z79.899 Other long term (current) drug therapy; F17.210 Nicotine dependence, cigarettes, uncomplicated
CPT/HCPCS: 36415; 80048; 80307; 81001; 82077; 82533; 82962; 83930; 83935; 84133; 84300; 84443; 85025; 87426; 97161; 97165; 97802; 99285; 99406; J7030; A4216; J2405

== ENCOUNTER 2021-06-09 14:28 | Outpatient (CLI) | payer MEDICARE, MEDICAID, SELFPAY ==
[2021-06-09 15:36] LABS: Absolute Lymphocyte Count 2.07 X10^3/uL (0.83-4.51); Absolute Neutrophil Count 4.8 X10^3/uL (2.0-7.7); Basophil# 0.02 X10^3/uL; Basophil% 0.3 % (0-1); Eosinophil# 0.05 X10^3/uL; Eosinophils% 0.7 % (0-5); Hemoglobin 12.6 g/dL (12.0-15.0); Lymphocyte # 2.07 X10^3/ul (0.83-4.51); Lymphocyte % 28.3 % (19-41); Mean Corp Hgb Conc 32.3 g/dL (32-36); Mean Corpuscular Hgb 30.3 pg (27.0-32.0); Mean Corpuscular Volume 93.8 fL (81-99); Mean Platelet Vol. 10.1 fl (6.2-12.0); Monocyte# 0.35 X10^3/uL; Monocyte% 4.8 % (0-10); NRBC Flagged by Analyzer 0 % (0-5); Neutrophil # 4.81 X10^3/uL (2.7-7.7); Neutrophil % 65.6 % (47-70); Platelet Count 271 K/mm3 (150-450); RBC Distribution Width CV 12.6 % (11.6-14.6); RBC Distribution Width SD 43.7 fl (35.1-43.9); Red Blood Count 4.16 M/mm3 (4.2-5.4); White Blood Count 7.3 K/mm3 (4.4-11.0)
[2021-06-09 16:02] LABS: Microalbumin,Random Urine 13.3 mg/L (NO RANGE EST.)
[2021-06-09 16:18] LABS: Vitamin B12 567 pg/mL (211-911)
[2021-06-09 16:50] LABS: ALB/GLOB Ratio 0.7 RATIO (0.9-2.4); AST(SGOT) 20 U/L (15-37); Alanine Aminotransfer ALT/SGPT 22 U/L (13-56); Albumin, Serum 3.6 g/dL (3.2-5.0); Alkaline Phosphatase 90 U/L (45-117); Anion Gap 6 (5-15); BUN 17 mg/dL (7-18); BUN/Creat Ratio 18.6 RATIO (10-20); Calcium,Total 10.1 mg/dL (8.5-10.1); Chloride 100 mmol/L (98-107); Cholesterol 124 mg/dL (200); Creatinine, Serum 0.92 mg/dL (0.55-1.02); EST Glomerular Filtration Rate 64 mL/min (>60); Est Glom Filt Rate - Afr Amer 78 mL/min (>60); Globulin 4.9 g/dL (2.2-4.2); Glucose 167 mg/dL (74-106); High Density Lipoprotein 38 mg/dL; Iron 46 ug/dL (50-170); Iron Binding Capacity,Total 368 ug/dL (250-450); PERCENT IRON SATURATION 12.5 % (15.0-55.0); Potassium 3.7 mmol/L (3.5-5.1); Protein, Total 8.5 g/dL (6.4-8.2); Sodium Level 137 mmol/L (136-145); Triglycerides 129 mg/dL; Very Low Density Lipoprotein 26 mg/dL (5-40)
[2021-06-10 10:29] LABS: Thyroid Stim Hormone (TSH) 1.42 uIU/mL (0.358-3.74)
[2021-06-11 10:22] LABS: H. Pylori Antibody (IgG) 0.18 (0.00-0.79)
[2021-06-12 17:51] LABS: Vitamin D 1,25-Dihydroxy 31.7 pg/mL (19.9-79.3)
== END 2021-06-09 23:59 | disposition short-term general hospital (02) ==
LOC: LAB 14:33
PROVIDERS: Referring Provider Nurse Practitioner Adult Health; Visit Provider Nurse Practitioner Adult Health
DX: E11.42 Type 2 diabetes mellitus with diabetic polyneuropathy (principal); L63.9 Alopecia areata, unspecified; K21.9 Gastro-esophageal reflux disease without esophagitis
CPT/HCPCS: 36415; 80053; 80061; 82043; 82607; 82652; 82746; 83540; 83550; 84443; 85025; 86677

== ENCOUNTER 2021-07-24 13:41 | Outpatient (CLI) | payer MEDICARE, MEDICAID, SELFPAY ==
--- NOTE | 2021-07-24 14:16 | BI_ITS ---
MAMMOGRAPHY - BILATERAL SCREENING 3-D TOMOSYNTHESIS REASON FOR EXAM: Female, 71 years old. SCREENING PERTINENT HISTORY: No significant family history. TECHNIQUE: 2-D mammograms and 3-D Tomosynthesis of the breast (s) were performed. CAD was performed. COMPARISON: 01/16/2019 FINDINGS: The breast composition is composed of scattered fibroglandular density. Scattered benign calcifications are seen. No dense spiculated masses or suspicious microcalcifications are identified. No architectural distortion is identified. There is no skin thickening or retraction. No change in lumpectomy changes in the lower inner quadrant of the left breast are BI/SCRN MAMM (CAD)W/GEOFFREY BILAT IMPRESSION: No mammographic signs of malignancy. Routine yearly mammograms recommended. ASSESSMENT CATEGORY: BIRADS Category 2: Benign. A letter regarding these results will be sent to the patient by the facility within 30 days. FOLLOW UP RECOMMENDATION: Yearly follow up mammogram recommended. (A) Approximately 10% of breast cancers are not detected by mammography. A normal mammogram should not delay biopsy of a clinically suspicious abnormality. Electronically Signed: Shelton Alvarez MD at 11:49 EDT ,
== END 2021-07-24 23:59 | disposition home or self-care (01) ==
LOC: OPBI 14:14
PROVIDERS: Referring Provider Nurse Practitioner Adult Health; Visit Provider Nurse Practitioner Adult Health
DX: Z12.31 Encounter for screening mammogram for malignant neoplasm of breast (principal)
CPT/HCPCS: 77063; 77067

== ENCOUNTER 2021-09-02 15:58 | Outpatient (CLI) | payer MEDICARE, MEDICAID, SELFPAY ==
[2021-09-02 17:21] LABS: Iron 46 ug/dL (50-170); Iron Binding Capacity,Total 324 ug/dL (250-450); PERCENT IRON SATURATION 14.2 % (15.0-55.0)
== END 2021-09-02 23:59 | disposition home or self-care (01) ==
PROVIDERS: Referring Provider Nurse Practitioner Adult Health; Visit Provider Nurse Practitioner Adult Health
DX: E61.1 Iron deficiency (principal)
CPT/HCPCS: 36415; 83540; 83550

== ENCOUNTER → 2021-11-17 | Outpatient (CLI) | payer MEDICARE, MEDICAID, SELFPAY ==
[2021-11-17 15:53] LABS: ALB/GLOB Ratio 0.8 RATIO (0.9-2.4); AST(SGOT) 17 U/L (15-37); Alanine Aminotransfer ALT/SGPT 21 U/L (13-56); Albumin, Serum 3.3 g/dL (3.2-5.0); Alkaline Phosphatase 84 U/L (45-117); Anion Gap 7 (5-15); BUN 21 mg/dL (7-18); BUN/Creat Ratio 17.1 RATIO (10-20); Calcium,Total 9.7 mg/dL (8.5-10.1); Chloride 100 mmol/L (98-107); Creatinine, Serum 1.23 mg/dL (0.55-1.02); EST Glomerular Filtration Rate 46 mL/min (>60); Est Glom Filt Rate - Afr Amer 55 mL/min (>60); Globulin 4.1 g/dL (2.2-4.2); Glucose 222 mg/dL (74-106); Iron 99 ug/dL (50-170); Iron Binding Capacity,Total 306 ug/dL (250-450); PERCENT IRON SATURATION 32.4 % (15.0-55.0); Potassium 3.8 mmol/L (3.5-5.1); Protein, Total 7.4 g/dL (6.4-8.2); Sodium Level 134 mmol/L (136-145)
== END | disposition home or self-care (01) ==
LOC: LAB 14:49
PROVIDERS: Visit Provider Nurse Practitioner Adult Health
DX: E11.40 Type 2 diabetes mellitus with diabetic neuropathy, unspecified (principal); E61.1 Iron deficiency
CPT/HCPCS: 36415; 80053; 83540; 83550

== ENCOUNTER → 2022-05-03 | Outpatient (CLI) | payer MEDICARE, MEDICAID, SELFPAY ==
[2022-05-03 14:56] LABS: Hematocrit 40.1 % (37-47); Hemoglobin 13.3 g/dL (12.0-15.0); Mean Corp Hgb Conc 33.2 g/dL (32-36); Mean Corpuscular Hgb 30.8 pg (27.0-32.0); Mean Corpuscular Volume 92.8 fL (81-99); Mean Platelet Vol. 10.2 fl (6.2-12.0); Platelet Count 218 K/mm3 (150-450); RBC Distribution Width CV 13.7 % (11.6-14.6); RBC Distribution Width SD 46.7 fl (35.1-43.9); Red Blood Count 4.32 M/mm3 (4.2-5.4); White Blood Count 7.7 K/mm3 (4.4-11.0)
[2022-05-03 15:26] LABS: ALB/GLOB Ratio 0.8 RATIO (0.9-2.4); AST(SGOT) 22 U/L (15-37); Alanine Aminotransfer ALT/SGPT 26 U/L (13-56); Albumin, Serum 3.5 g/dL (3.2-5.0); Alkaline Phosphatase 91 U/L (45-117); Anion Gap 8 (5-15); BUN 18 mg/dL (7-18); BUN/Creat Ratio 13.8 RATIO (10-20); Calcium,Total 9.2 mg/dL (8.5-10.1); Chloride 102 mmol/L (98-107); EST Glomerular Filtration Rate 43 mL/min (>60); Est Glom Filt Rate - Afr Amer 52 mL/min (>60); Globulin 4.6 g/dL (2.2-4.2); Glucose 257 mg/dL (74-106); Potassium 3.8 mmol/L (3.5-5.1); Protein, Total 8.1 g/dL (6.4-8.2); Sodium Level 136 mmol/L (136-145)
== END | disposition home or self-care (01) ==
LOC: LAB 13:59
PROVIDERS: Referring Provider Nurse Practitioner Family; Visit Provider Nurse Practitioner Family
DX: E11.42 Type 2 diabetes mellitus with diabetic polyneuropathy (principal)
CPT/HCPCS: 36415; 80053; 85027

== ENCOUNTER → 2022-08-02 | Outpatient (CLI) | payer MEDICARE, MEDICAID, SELFPAY ==
[2022-08-02 16:20] LABS: ALB/GLOB Ratio 0.8 RATIO (0.9-2.4); AST(SGOT) 23 U/L (15-37); Alanine Aminotransfer ALT/SGPT 25 U/L (13-56); Albumin, Serum 3.5 g/dL (3.2-5.0); Alkaline Phosphatase 84 U/L (45-117); Anion Gap 8 (5-15); BUN 26 mg/dL (7-18); Calcium,Total 10.1 mg/dL (8.5-10.1); Chloride 105 mmol/L (98-107); Cholesterol 145 mg/dL (200); Creatinine, Serum 1.24 mg/dL (0.55-1.02); EST Glomerular Filtration Rate 45 mL/min (>60); Est Glom Filt Rate - Afr Amer 55 mL/min (>60); Globulin 4.2 g/dL (2.2-4.2); Glucose 153 mg/dL (74-106); High Density Lipoprotein 39 mg/dL; Potassium 3.9 mmol/L (3.5-5.1); Protein, Total 7.7 g/dL (6.4-8.2); Sodium Level 141 mmol/L (136-145); T4 Free Direct 1.17 ng/dL (0.76-1.46); Thyroid Stim Hormone (TSH) 1.12 uIU/mL (0.358-3.74); Triglycerides 262 mg/dL; Very Low Density Lipoprotein 52 mg/dL (5-40)
== END | disposition home or self-care (01) ==
LOC: LAB 14:00
PROVIDERS: PCP Nurse Practitioner Family; Referring Provider Nurse Practitioner Family; Visit Provider Internal Medicine Endocrinology, Diabetes & Metabolism
DX: E78.5 Hyperlipidemia, unspecified (principal); E11.22 Type 2 diabetes mellitus with diabetic chronic kidney disease; N18.30 Chronic kidney disease, stage 3 unspecified; E03.9 Hypothyroidism, unspecified; E66.3 Overweight
CPT/HCPCS: 36415; 80053; 80061; 84439; 84443

== ENCOUNTER → 2022-08-10 | Outpatient (CLI) | payer MEDICARE, MEDICAID, SELFPAY ==
--- NOTE | 2022-08-10 14:04 | BI_ITS ---
MAMMOGRAPHY - BILATERAL SCREENING REASON FOR EXAM: Female, 72 years old. Routine annual screening examination. PERTINENT HISTORY: Personal history of breast cancer. Prior left lumpectomy with radiation treatment. History of prior left stereotactic breast biopsy. Aunt with breast cancer. TECHNIQUE: Digital bilateral breast geoffrey (3D mammographic acquisition) in the CC and MLO projections. 2-D mediolateral oblique (MLO) and craniocaudad (CC) views of both breasts were obtained. CAD: Full Field Digital Mammography with Computer Added Detection was performed. COMPARISON: Comparison is made with prior study dated July 24, 2021 and December 12, 2019. FINDINGS: Breast Composition: There are scattered areas of fibroglandular density. There are no dominant masses or suspicious calcifications. Once again, the patient status post left lumpectomy in the inferior medial aspect of the left breast with resultant breast deformity and dense calcification at the operative site suggestive of dystrophic calcification. No other significant abnormalities are identified. There has been no significant change since the prior study. BI/SCRN MAMM (CAD)W/GEOFFREY BILAT IMPRESSION: Stable bilateral screening mammogram. Yearly follow-up mammogram recommended. (A) ASSESSMENT CATEGORY: BIRADS Category 2: Benign. A letter regarding these results will be sent to the patient by the facility within 30 days. Approximately 10% of breast cancers are not detected by mammography. A normal mammogram should not delay biopsy of a clinically suspicious abnormality. [id number] Electronically Signed: Yoan Agrawal MD at 14:51 EDT ,
== END | disposition home or self-care (01) ==
LOC: OPBI 14:02
PROVIDERS: PCP Nurse Practitioner Family; Visit Provider Nurse Practitioner Family
DX: Z12.31 Encounter for screening mammogram for malignant neoplasm of breast (principal); Z85.3 Personal history of malignant neoplasm of breast
CPT/HCPCS: 77063; 77067

== ENCOUNTER → 2023-02-15 | Outpatient (CLI) | payer MEDICARE, MEDICAID, SELFPAY ==
[2023-02-15 16:55] LABS: Hematocrit 40.5 % (37-47); Hemoglobin 13.2 g/dL (12.0-15.0); Mean Corp Hgb Conc 32.6 g/dL (32-36); Mean Corpuscular Hgb 31.2 pg (27.0-32.0); Mean Corpuscular Volume 95.7 fL (81-99); Mean Platelet Vol. 10.4 fl (6.2-12.0); Platelet Count 218 K/mm3 (150-450); RBC Distribution Width CV 14.9 % (11.6-14.6); RBC Distribution Width SD 52.7 fl (35.1-43.9); Red Blood Count 4.23 M/mm3 (4.2-5.4); White Blood Count 8.4 K/mm3 (4.4-11.0)
[2023-02-15 17:27] LABS: ALB/GLOB Ratio 0.8 RATIO (0.9-2.4); AST(SGOT) 21 U/L (15-37); Alanine Aminotransfer ALT/SGPT 23 U/L (13-56); Albumin, Serum 3.6 g/dL (3.2-5.0); Alkaline Phosphatase 78 U/L (45-117); Anion Gap 7 (5-15); BUN 19 mg/dL (7-18); BUN/Creat Ratio 14.6 RATIO (10-20); Calcium,Total 9.6 mg/dL (8.5-10.1); Chloride 105 mmol/L (98-107); Cholesterol 144 mg/dL (200); EST Glomerular Filtration Rate 43 mL/min (>60); Est Glom Filt Rate - Afr Amer 52 mL/min (>60); Globulin 4.5 g/dL (2.2-4.2); Glucose 120 mg/dL (74-106); High Density Lipoprotein 48 mg/dL; Protein, Total 8.1 g/dL (6.4-8.2); Sodium Level 138 mmol/L (136-145); Thyroid Stim Hormone (TSH) 1.28 uIU/mL (0.358-3.74); Triglycerides 284 mg/dL; Very Low Density Lipoprotein 57 mg/dL (5-40)
[2023-02-15 17:30] LABS: Microalbumin,Random Urine 9.3 mg/L (NO RANGE EST.)
== END | disposition home or self-care (01) ==
LOC: LAB 16:00
PROVIDERS: Visit Provider Nurse Practitioner Family
DX: E11.42 Type 2 diabetes mellitus with diabetic polyneuropathy (principal); E03.9 Hypothyroidism, unspecified; E78.5 Hyperlipidemia, unspecified; R53.82 Chronic fatigue, unspecified
CPT/HCPCS: 36415; 80053; 80061; 82043; 84439; 84443; 85027

== ENCOUNTER → 2023-08-03 | Outpatient (CLI) | payer MEDICARE, MEDICAID, SELFPAY ==
[2023-08-03 17:19] LABS: Absolute Lymphocyte Count 2.94 X10^3/uL (0.83-4.51); Absolute Neutrophil Count 4.2 X10^3/uL (2.0-7.7); Basophil# 0.06 X10^3/uL; Basophil% 0.8 % (0-1); Eosinophil# 0.18 X10^3/uL; Eosinophils% 2.3 % (0-5); Hematocrit 41.4 % (37-47); Hemoglobin 13.3 g/dL (12.0-15.0); Lymphocyte # 2.94 X10^3/ul (0.83-4.51); Lymphocyte % 37.4 % (19-41); Mean Corp Hgb Conc 32.1 g/dL (32-36); Mean Corpuscular Hgb 30.6 pg (27.0-32.0); Mean Corpuscular Volume 95.4 fL (81-99); Mean Platelet Vol. 10.4 fl (6.2-12.0); Monocyte# 0.42 X10^3/uL; Monocyte% 5.3 % (0-10); NRBC Flagged by Analyzer 0 % (0-5); Neutrophil # 4.24 X10^3/uL (2.7-7.7); Neutrophil % 53.9 % (47-70); Platelet Count 227 K/mm3 (150-450); RBC Distribution Width CV 13.9 % (11.6-14.6); RBC Distribution Width SD 48.8 fl (35.1-43.9); Red Blood Count 4.34 M/mm3 (4.2-5.4); White Blood Count 7.9 K/mm3 (4.4-11.0)
[2023-08-03 17:59] LABS: Hemoglobin A1c 6.1 % (3.8-5.6)
[2023-08-03 18:07] LABS: Microalbumin,Random Urine 11.4 mg/L (NO RANGE EST.); Microalbumin:Creatinine Ratio 12.8 mg/g CRE (<30 mg/g CRE)
[2023-08-03 18:15] LABS: ALB/GLOB Ratio 0.8 RATIO (0.9-2.4); AST(SGOT) 24 U/L (15-37); Alanine Aminotransfer ALT/SGPT 21 U/L (13-56); Albumin, Serum 3.6 g/dL (3.2-5.0); Alkaline Phosphatase 81 U/L (45-117); Anion Gap 9 (5-15); BUN 17 mg/dL (7-18); BUN/Creat Ratio 12.7 RATIO (10-20); Calcium,Total 9.8 mg/dL (8.5-10.1); Chloride 104 mmol/L (98-107); Cholesterol 151 mg/dL (200); Creatinine, Serum 1.34 mg/dL (0.55-1.02); EST Glomerular Filtration Rate 41 mL/min (>60); Est Glom Filt Rate - Afr Amer 50 mL/min (>60); Globulin 4.4 g/dL (2.2-4.2); Glucose 173 mg/dL (74-106); High Density Lipoprotein 40 mg/dL; Sodium Level 139 mmol/L (136-145); T4 Free Direct 1.18 ng/dL (0.76-1.46); Thyroid Stim Hormone (TSH) 1.47 uIU/mL (0.358-3.74); Triglycerides 386 mg/dL; Very Low Density Lipoprotein 77 mg/dL (5-40)
== END | disposition home or self-care (01) ==
LOC: LAB 16:47
PROVIDERS: Referring Provider Nurse Practitioner Family; Visit Provider Nurse Practitioner Family
DX: E11.42 Type 2 diabetes mellitus with diabetic polyneuropathy (principal); E03.9 Hypothyroidism, unspecified; E78.5 Hyperlipidemia, unspecified
CPT/HCPCS: 36415; 80053; 80061; 82043; 82570; 83036; 84439; 84443; 85025

== ENCOUNTER → 2023-08-17 | Outpatient (CLI) | payer MEDICARE, MEDICAID, SELFPAY ==
--- NOTE | 2023-08-17 13:29 | BI_ITS ---
MAMMOGRAPHY - BILATERAL SCREENING REASON FOR EXAM: Female, 73 years old. Routine annual screening examination. PERTINENT HISTORY: Personal history of breast cancer. Prior left lumpectomy with radiation therapy. Prior left stereotactic breast biopsies. TECHNIQUE: Digital bilateral breast geoffrey (3D mammographic acquisition) in the CC and MLO projections. 2-D mediolateral oblique (MLO) and craniocaudad (CC) views of both breasts were obtained. CAD: Full Field Digital Mammography with Computer Added Detection was performed. COMPARISON: Comparison is made with prior study August 10, 2022 and July 24, 2021. FINDINGS: Breast Composition: There are scattered areas of fibroglandular density. There are no dominant masses or suspicious calcifications. Once again, the patient is status post lumpectomy in the inferior medial aspect of the left breast with resultant breast deformity and postoperative dystrophic calcifications at the operative site. There is evidence of overlying skin thickening. No other significant abnormalities are identified. There has been no significant change since the prior study. BI/SCRN MAMM (CAD)W/GEOFFREY BILAT IMPRESSION: Stable bilateral screening mammogram. Yearly follow-up mammogram recommended. (A) ASSESSMENT CATEGORY: BIRADS Category 2: Benign. A letter regarding these results will be sent to the patient by the facility within 30 days. Approximately 10% of breast cancers are not detected by mammography. A normal mammogram should not delay biopsy of a clinically suspicious abnormality. [id number] Electronically Signed: Yoan Agrawal MD at 14:24 EDT ,
--- NOTE | 2023-08-17 14:12 | US_ITS ---
STUDY: ULTRASOUND OF THE FEMALE PELVIS - COMPLETE REASON FOR EXAM: Female, 73 years old. Vaginal discharge LMP: Patient is postmenopausal TECHNIQUE: Transvaginal TECHNICAL QUALITY: Adequate. COMPARISON: None. FINDINGS: The uterus is retroverted and is in a midline position. The uterus measures 6.5 cm x 4.4 cm x 2.8 cm. There is a Nabothian cyst of the cervix. The endometrium measures 2.3 mm in thickness, and is fluid distended. Within the endometrium, I suspect a 1.2 cm x 0.9 cm x 0.3 cm endometrial polyp. A small amount of fluid is seen in the endometrium. There is no demonstrated myometrial mass. I.U.D. - The patient does not have an I.U.D. The right ovary is visualized. The right ovary measures 1.9 cm x 1.4 cm x 0.9 cm. There is a 7 mm x 7 mm x 7 mm right ovarian follicle. There is no visualized right adnexal mass or complex lesion. There is normal arterial and normal venous vascularity. The left ovary is visualized. The left ovary measures 2.3 cm x 2 cm x 1.6 cm. There is a 1.7 cm x 1.4 cm x 1.2 cm cyst in the left ovary. There is no visualized left adnexal mass or complex lesion. There is normal arterial and normal venous vascularity. There is no fluid in the cul-de-sac. US/Transvaginal Non- IMPRESSION: Mildly thickened endometrium with fluid and possible polyp within the endometrium measuring 1.2 cm x 0.9 cm x 0.3 cm. Left ovarian cyst. Electronically Signed: Yoan Agrawal MD at 9:45 EDT ,
== END | disposition home or self-care (01) ==
LOC: OPBI 13:27
PROVIDERS: PCP Nurse Practitioner Family; Referring Provider Nurse Practitioner Family; Visit Provider Nurse Practitioner Family
DX: Z12.31 Encounter for screening mammogram for malignant neoplasm of breast (principal); Z78.0 Asymptomatic menopausal state; N89.8 Other specified noninflammatory disorders of vagina; Z85.3 Personal history of malignant neoplasm of breast
CPT/HCPCS: 76830; 77063; 77067

== ENCOUNTER → 2023-09-08 | Outpatient (CLI) | payer MEDICARE, MEDICAID, SELFPAY | END | disposition home or self-care (01) | LOC: LABSPEC 16:54 | PROVIDERS: Referring Provider Nurse Practitioner Family; Visit Provider Nurse Practitioner Family | DX: N89.8 Other specified noninflammatory disorders of vagina (principal) | CPT/HCPCS: 87070; 87205 ==

== ENCOUNTER 2023-09-15 09:42 | Day surgery (SDC) | payer MEDICARE, MEDICAID, SELFPAY ==
[2023-09-15] VITALS (7 sets, daily range): BP systolic 109–131; BP diastolic 69–88; PULSE 25–73; RESP 16–20; TEMP 35.9–36.2; O2SAT 97–99; BMI 25.5
--- NOTE | 2023-09-15 | COLBX_PTH ---
PATIENT: JOSIE MCKEE LOC: EN U#:[id number] AGE/SX: 73/F ROOM: RE09/15/[address]: Dr. Erik Murguia DO : 1950 BED: DIS: 09/15/2023 SPEC #: [id number] RECD: 09/15/23 13:39 STATUS: TONY CAROLYN #: [id number] KELVIN: 09/15/23 00:[address]: Erik Murguia DEPT: SURGICAL PATHOLOGY RECD BY: Rashawn Navas ENTERED: 09/15/23 13:39 SP TYPE: COLON BX OTHR DR: Marisol Freed, [facility], DRAW FRAME OPERATOR-C Tissues: A - Cecum, NOS B - COLON BIOPSY Procedures: Surgery Specimen Level IV HEADER OPERATION: Colonoscopy with polypectomy PRE-OP DIAGNOSIS: Screening TISSUE SUBMITTED: A- Cecal polyp, B- Hepatic flexure polyp MICROSCOPIC DIAGNOSIS A. Cecal polyp, biopsy: Fragments of tubular adenoma. B. Colonic polyp at hepatic flexure, biopsy: Fragments of tubular adenoma. / 09/16/23 MICROSCOPIC DESCRIPTION Slides are reviewed. GROSS DESCRIPTION A. Received in fixative is one container labeled with the patient's name and designated Cecal polyp. The specimen consists of multiple irregular fragments of light koch soft tissue that in aggregate measure 1.5 x 0.3 x 0.1 cm. The specimen is totally submitted in one cassette. B. Received in fixative is one container labeled with the patient's name and designated Hepatic flexure polyp. The specimen consists of multiple irregular fragments of light koch soft tissue that in aggregate measure 1.0 x 0.5 x 0.1 cm. The specimen is totally submitted in one cassette. / 09/15/23 TC:5 CPT:05130m9
[2023-09-15] MEDS: Lactated Ringers 1,000 ML 15 ML IV (10:02)
--- NOTE | 2023-09-15 10:23 | PCM.HP.STD ---
[facility] - General General Date of Admission: 09/15/23 Date of Service: 09/15/23 Chief Complaint: Screening colonoscopy HPI Narrative JOSIE MCKEE, is a 73 F who presents today for screening colonoscopy. She had a colonoscopy approximately 10 years ago. She did have 1 polyp during that time. She does not have any abdominal pain. She not have any cramping she and she does not have any diarrhea. Denies any chest pain or shortness of breath. She has a past medical history of diabetes, hyperlipidemia, breast cancer, hypothyroidism, bipolar disorder. [facility] Medical History (Updated 09/13/23 @ 16:20 by Lorna Patel) Anemia Anxiety Arthritis Bipolar disorder Bipolar disorder Breast cancer Cancer Depression DM2 (diabetes mellitus, type 2) Essential (primary) hypertension GERD (gastroesophageal reflux disease) H/O malignant neoplasm of female breast Heart murmur High cholesterol Hx of colonic polyp Hyperlipidemia Hyponatremia Hyponatremia Hypothyroidism (acquired) Hypothyroidism (acquired) IBS (irritable bowel syndrome) Neuropathy Psoriasis PTSD (post-traumatic stress disorder) Right bundle branch block (RBBB) Smoker TBI (traumatic brain injury) Thyroid disease Wears glasses Wears partial dentures Home Medications Precision Xtra Monitor (blood-glucose meter) #1 ea 11/03/20 [Rx Last Taken Unknown] Precision Xtra Test (blood sugar diagnostic) #270 ea 11/03/20 [Rx Last Taken Unknown] blood sugar diagnostic (Precision Xtra Test strips) #300 ea 11/03/20 [Rx Last Taken Unknown] blood-glucose meter (Precision Xtra Monitor) #1 ea 11/03/20 [Rx Last Taken Unknown] atorvastatin 80 mg tablet 80 mg PO QHS cholesterol 01/11/21 [History Last Taken Unknown] levothyroxine 25 mcg tablet 25 mcg PO DAILY thyroid 01/11/21 [History Last Taken 09/15/23] oxybutynin chloride 5 mg tablet,extended release 24 hr 5 mg PO DAILY 08/20/21 [History Last Taken Unknown] pantoprazole 40 mg tablet,delayed release 40 mg PO DAILY 08/20/21 [History Last Taken 09/15/23] trazodone 50 mg tablet 50 mg PO QHS 08/20/21 [History Last Taken Unknown] BD Ultra-Fine Blanca Pen Needle 32 gauge x 5/32 (pen needle, diabetic) #200 ea 12/09/21 [Rx Last Taken Unknown] BD Ultra-Fine Blanca Pen Needle 32 gauge x 5/32 (pen needle, diabetic) #100 ea 03/14/23 [Rx Last Taken Unknown] dapagliflozin propanediol 10 mg tablet (Farxiga) 10 mg PO DAILY #30 tabs 08/01/23 [Rx Last Taken 09/14/23] biotin 10,000 mcg chewable tablet (Hair, Skin and Nails (biotin)) 30,000 mcg PO DAILY 08/11/23 [History Last Taken 09/14/23] gabapentin 100 mg capsule 100 mg PO TID 08/11/23 [History Last Taken 09/15/23] ibuprofen 200 mg tablet 200 mg PO Q6H PRN fever or pain 08/11/23 [History Last Taken 09/14/23] lorazepam 1 mg tablet 0.5 mg PO DAILY PRN anxiety 08/11/23 [History Last Taken 09/15/23] multivitamin 1 tab PO DAILY 08/11/23 [History Last Taken Unknown] aripiprazole 5 mg tablet 7.5 mg PO DAILY 09/08/23 [History Last Taken 09/15/23] insulin glargine 100 unit/mL (3 mL) subcutaneous pen (Lantus Solostar U-100 Insulin) 40 unit subcut QHS 09/13/23 [History Last Taken Unknown] insulin lispro 100 unit/mL subcutaneous pen (Humalog KwikPen (U-100) Insulin) 7 unit subcut BID 09/13/23 [History Last Taken Unknown] melatonin 5 mg capsule 5 mg PO QHS 09/13/23 [History Last Taken Unknown] Allergy/AdvReac Type Severity Reaction Status Date / Time codeine Allergy EXTREME Verified 09/15/23 09:58 ANXIETY gluten Allergy Rash Verified 09/15/23 09:58 lithium Allergy Hives Verified 09/15/23 09:58 Family History Mother Congestive heart failure (CHF) Grandmother Congestive heart failure (CHF) Uncle , Patient states he during stress test, age late 50's CAD (coronary artery disease) Myocardial infarction Sudden cardiac Surgical History (Updated 09/13/23 @ 16:20 by Lorna Patel) History of lumpectomy Hx of colonoscopy Social History (Updated 08/11/23 @ 12:44 by Renee Caba) household members: spouse current occupational status: disabled Smoking Status: Current every day smoker tobacco type: cigarettes alcohol intake: never substance use type: marijuana what type of physical activity do you participate in: none ROS Review of Systems ROS Unobtainable: Denies due to encephalopathy Constitutional Constitutional: Denies anorexia, chills, fatigue, fever(s), malaise or weakness Eyes Eyes: Denies change in vision ENT HEENT: Denies dysphagia, headache(s), hearing loss or sore throat Cardiovascular Cardiovascular: Denies chest pain, dyspnea on exertion, lightheadedness, palpitations, paroxysmal nocturnal dyspnea, rapid heart rate or syncope Respiratory/Chest Respiratory/Chest: Denies cough, dyspnea, productive cough, shortness of breath at rest or shortness of breath with exertion Gastrointestinal Gastrointestinal: Denies abdominal pain, constipation, diarrhea, dyspepsia, nausea or vomiting Genitourinary Genitourinary: Denies burning urination, dysuria or urinary frequency Neurologic Neurologic: Denies confusion, dizziness, focal weakness, seizures or syncope Psychiatric Psychiatric: Denies anxiety or depression Vital Signs Vital Signs Vital Signs: 09/15/23 10:10 09/15/23 10:10 Temperature 97.1 F L Temperature Source Temporal Pulse Rate 73 Respiratory Rate 16 Respiratory Pattern Normal Blood Pressure 120/75 Blood Pressure Mean 90 Blood Pressure Source Monitor Blood Pressure Position Semi-Fowlers Blood Pressure Location Right Arm Pulse Ox 97 Oxygen Delivery Method Room Air Weight Weight: 131 lb Body Mass Index (BMI) 25.5 Physical Exam Const alert, oriented x3 and no apparent distress General Appearance: cooperative Orientation / Consciousness: awake Exam Limitations: no limitations HEENT normocephalic, head/scalp atraumatic, hearing grossly normal bilaterally and moist oral mucous membranes Eyes PERRL, EOMs intact bilaterally and conjunctivae normal Neck no lymphadenopathy Resp normal respiratory effort, no retractions, no use of accessory muscles and clear to auscultation bilaterally Cardio regular rate, regular rhythm, S1 normal heart sound, S2 normal heart sound and no murmurs GI normal to inspection, nondistended, normoactive bowel sounds, soft to palpation and non-tender Extremity normal to inspection, full ROM and no clubbing, cyanosis or edema Skin no rashes or lesions noted Neuro oriented x3, CN's II-XII intact bilaterally and moves all extremities Sensorium / Orientation: awake and alert Motor Exam: strength 5/5 throughout Psych affect normal Assessment & Plan Assessment/Plan (1) Encounter for screening for malignant neoplasm of colon: PLAN: She was explained alternatives, risk, benefits including not withstanding bleeding, infection, sepsis, perforation, need for emergent surgery and . She will have an ASA of 3.
[2023-09-15 10:48] LABS: Bedside Glucose 245 mg/dL (74-106)
--- NOTE | 2023-09-15 11:25 | OP.CCLET_ITS ---
09/15/2023 Marisol Freed [facility] [place], [employer] Re : Colonoscopy procedure for Donna Freed This procedure was performed on September. My impressions and recommendations are as follows: Impressions : - Two 1 to 2 mm polyps at the hepatic flexure and in the cecum, removed with a hot snare. Resected and retrieved. - Diverticulosis in the recto-sigmoid colon and in the sigmoid colon. - The examination was otherwise normal on direct and retroflexion views. Recommendations : - Discharge patient to home. - Resume previous diet. - Continue present medications. - Await pathology results. - Repeat colonoscopy in 5 years for surveillance. My findings are described in the full procedure note, which is enclosed. If I can be of further assistance, please feel free to contact me at . Sincerely, Erik Murguia, 09/15/2023 11:24:42 AM This report has been signed electronically.
--- NOTE | 2023-09-15 11:25 | OP.COLON_ITS ---
Patient Name: Donna Reddy Procedure Date: 09/15/2023 10:42 AM Date of : 1950 Age: 73 Procedure: Colonoscopy Indications: Screening for colorectal malignant neoplasm Providers: Erik Murguia DO Referring MD: Marisol Freed [facility], [employer] Medicines: Monitored Anesthesia Care Patient Profile: This is a 73 year old female. Refer to note in patient chart for documentation of history and physical. Last Colonoscopy: more than 10 years ago. Complications: No immediate complications. Procedure: Pre-Anesthesia Assessment: - Prior to the procedure, a History and Physical was performed, and patient medications and allergies were reviewed. The patient is competent. The risks and benefits of the procedure and the sedation options and risks were discussed with the patient. All questions were answered and informed consent was obtained. Patient identification and proposed procedure were verified by the physician in the pre-procedure area. Mental Status Examination: alert and oriented. Airway Examination: normal oropharyngeal airway and neck mobility. Respiratory Examination: clear to auscultation. CV Examination: normal. Prophylactic Antibiotics: The patient does not require prophylactic antibiotics. Prior Anticoagulants: The patient has taken no anticoagulant or antiplatelet agents. ASA Grade Assessment: II - A patient with mild systemic disease. After reviewing the risks and benefits, the patient was deemed in satisfactory condition to undergo the procedure. The anesthesia plan was to use monitored anesthesia care (MAC). Immediately prior to administration of medications, the patient was re-assessed for adequacy to receive sedatives. The heart rate, respiratory rate, oxygen saturations, blood pressure, adequacy of pulmonary ventilation, and response to care were monitored throughout the procedure. The physical status of the patient was re-assessed after the procedure. After I obtained informed consent, the scope was passed under direct vision. Throughout the procedure, the patient's blood pressure, pulse, and oxygen saturations were monitored continuously. The Colonoscope was introduced through the anus and advanced to the cecum, identified by appendiceal orifice and ileocecal valve. The colonoscopy was performed without difficulty. The patient tolerated the procedure well. The quality of the bowel preparation was adequate. The ileocecal valve, appendiceal orifice, and rectum were photographed. Scope In: 10:54:39 AM Scope Withdrawal Time 0 hours 11 minutes 18 seconds Scope Out: 11:11:10 AM Total Procedure Duration Time 0 hours 16 minutes 31 seconds Findings: The perianal and digital rectal examinations were normal. Two sessile polyps were found in the hepatic flexure and cecum. The polyps were 1 to 2 mm in size. These polyps were removed with a hot snare. Resection and retrieval were complete. Verification of patient identification for the specimen was done. Estimated blood loss was minimal. Multiple small-mouthed diverticula were found in the recto-sigmoid colon and sigmoid colon. The exam was otherwise without abnormality on direct and retroflexion views. Impression: - Two 1 to 2 mm polyps at the hepatic flexure and in the cecum, removed with a hot snare. Resected and retrieved. - Diverticulosis in the recto-sigmoid colon and in the sigmoid colon. - The examination was otherwise normal on direct and retroflexion views. Recommendation: - Discharge patient to home. - Resume previous diet. - Continue present medications. - Await pathology results. - Repeat colonoscopy in 5 years for surveillance. Procedure Code(s): --- Professional --- 65701, Colonoscopy, flexible; with removal of tumor(s), polyp(s), or other lesion(s) by snare technique CPT copyright 2021 [employer]. All rights reserved. The codes documented in this report are preliminary and upon director for beauty [employer] review may be revised to meet current compliance requirements. Erik Murguia DO 09/15/2023 11:24:42 AM This report has been signed electronically. Number of Addenda: 0 Note Initiated On: 09/15/2023 10:42 AM
== END 2023-09-15 12:10 | disposition home or self-care (01) ==
LOC: EN 09:42 → AC 09:44
PROVIDERS: PCP Nurse Practitioner Family; Referring Provider Nurse Practitioner Family; Visit Provider Internal Medicine Gastroenterology
PROC: 0DJD8ZZ Inspection of Lower Intestinal Tract, Via Natural or Artificial Opening Endoscopic (ICD-10-PCS; CPT 45378; principal; 2023-09-15 10:40)
DX: Z12.11 Encounter for screening for malignant neoplasm of colon (principal); F31.9 Bipolar disorder, unspecified; E11.40 Type 2 diabetes mellitus with diabetic neuropathy, unspecified; Z79.4 Long term (current) use of insulin; I10 Essential (primary) hypertension; E78.00 Pure hypercholesterolemia, unspecified; K57.30 Diverticulosis of large intestine without perforation or abscess without bleeding; Z86.010 Personal history of colon polyps; K21.9 Gastro-esophageal reflux disease without esophagitis; F17.210 Nicotine dependence, cigarettes, uncomplicated; D12.0 Benign neoplasm of cecum; D12.3 Benign neoplasm of transverse colon; E03.9 Hypothyroidism, unspecified; Z79.890 Hormone replacement therapy; Z79.899 Other long term (current) drug therapy
CPT/HCPCS: 45385; 82962; 88305; J7120

== ENCOUNTER 2023-10-25 11:12 | Day surgery (SDC) | payer MEDICARE, MEDICAID, SELFPAY ==
--- NOTE | 2023-10-20 13:52 | EKG12_ITS ---
Test Reason : PRE OP Blood Pressure : / mmHG Vent. Rate : 076 BPM Atrial Rate : 077 BPM P-R Int : 112 ms QRS Dur : 102 ms QT Int : 424 ms P-R-T Axes : 000 002 066 degrees QTc Int : 477 ms Normal sinus rhythm Normal ECG Confirmed by Josue Jackson ([id number]), video news editor HUGO VALLADARES ([id number]) on 10/24/2023 1:58:10 PM Referred By: Lora Turpin Confirmed By:Josue Jackson
[2023-10-20 15:31] LABS: Hematocrit 42.1 % (37-47); Hemoglobin 13.4 g/dL (12.0-15.0); Mean Corp Hgb Conc 31.8 g/dL (32-36); Mean Corpuscular Hgb 30.6 pg (27.0-32.0); Mean Corpuscular Volume 96.1 fL (81-99); Mean Platelet Vol. 10.3 fl (6.2-12.0); Platelet Count 219 K/mm3 (150-450); RBC Distribution Width CV 14.4 % (11.6-14.6); RBC Distribution Width SD 50.6 fl (35.1-43.9); Red Blood Count 4.38 M/mm3 (4.2-5.4); White Blood Count 7.4 K/mm3 (4.4-11.0)
[2023-10-20 16:33] LABS: ALB/GLOB Ratio 0.8 RATIO (0.9-2.4); AST(SGOT) 18 U/L (15-37); Alanine Aminotransfer ALT/SGPT 18 U/L (13-56); Albumin, Serum 3.5 g/dL (3.2-5.0); Alkaline Phosphatase 80 U/L (45-117); Anion Gap 5 (5-15); BUN 16 mg/dL (7-18); BUN/Creat Ratio 13.2 RATIO (10-20); Calcium,Total 10.1 mg/dL (8.5-10.1); Chloride 107 mmol/L (98-107); Creatinine, Serum 1.21 mg/dL (0.55-1.02); EST Glomerular Filtration Rate 46 mL/min (>60); Est Glom Filt Rate - Afr Amer 56 mL/min (>60); Globulin 4.3 g/dL (2.2-4.2); Glucose 134 mg/dL (74-106); Potassium 4.3 mmol/L (3.5-5.1); Protein, Total 7.8 g/dL (6.4-8.2); Sodium Level 139 mmol/L (136-145)
[2023-10-25] VITALS (7 sets, daily range): BP systolic 105–137; BP diastolic 59–84; PULSE 60–67; RESP 14–16; TEMP 36.3–36.6; O2SAT 93–97; BMI 25.6
--- NOTE | 2023-10-25 10:13 | PCM.HP.BLA ---
History and Physical Date of Admission: 10/25/23 Intake Vital Signs 09/07/2414:27 09/14/2409:10 10/03/2412:26 Height 5 ft 0.5 in 5 ft 5 ft Weight: 132 lb 2 oz BMI 25.8 BP 120/77 Intake Visit Reasons: ABNORMAL US AND PMB Molecular Modeler Required: No Is patient in pain?: No Allergies codeine Allergy (Verified 10/04/23 13:27) EXTREME ANXIETYgluten Allergy (Verified 10/04/23 13:27) Rashlithium Allergy (Verified 10/04/23 13:27) Hives Medications ?Medication ?Instructions ?Recorded ?Confirmed ?Type Precision Xtra Monitor #1 ea 11/03/20 10/04/23 Rx (blood-glucose meter) Precision Xtra Test (blood sugar #270 ea 11/03/20 10/04/23 Rx diagnostic) blood sugar diagnostic (Precision #300 ea 11/03/20 10/04/23 Rx Xtra Test strips) blood-glucose meter (Precision #1 ea 11/03/20 10/04/23 Rx Xtra Monitor) atorvastatin 80 mg tablet 80 mg PO QHS cholesterol 01/11/21 10/04/23 History levothyroxine 25 mcg tablet 25 mcg PO DAILY thyroid 01/11/21 10/04/23 History oxybutynin chloride 5 mg 5 mg PO DAILY 08/20/21 10/04/23 History tablet,extended release 24 hr pantoprazole 40 mg tablet,delayed 40 mg PO DAILY 08/20/21 10/04/23 History release trazodone 50 mg tablet 50 mg PO QHS 08/20/21 10/04/23 History BD Ultra-Fine Blanca Pen Needle 32 #200 ea 12/09/21 10/04/23 Rx gauge x 5/32 (pen needle, diabetic) BD Ultra-Fine Blanca Pen Needle 32 #100 ea 03/14/23 10/04/23 Rx gauge x 5/32 (pen needle, diabetic) dapagliflozin propanediol 10 mg 10 mg PO DAILY #30 tabs 08/01/23 10/04/23 Rx tablet (Farxiga) biotin 10,000 mcg chewable tablet 30,000 mcg PO DAILY 08/11/23 10/04/23 History (Hair, Skin and Nails (biotin)) gabapentin 100 mg capsule 100 mg PO TID 08/11/23 10/04/23 History ibuprofen 200 mg tablet 200 mg PO Q6H PRN fever or pain 08/11/23 10/04/23 History lorazepam 1 mg tablet 0.5 mg PO DAILY PRN anxiety 08/11/23 10/04/23 History multivitamin 1 tab PO DAILY 08/11/23 10/04/23 History aripiprazole 5 mg tablet 7.5 mg PO DAILY 09/08/23 10/04/23 History insulin glargine 100 unit/mL (3 40 unit subcut QHS 09/13/23 10/04/23 History mL) subcutaneous pen (Lantus Solostar U-100 Insulin) insulin lispro 100 unit/mL 7 unit subcut BID 09/13/23 10/04/23 History subcutaneous pen (Humalog KwikPen (U-100) Insulin) melatonin 5 mg capsule 5 mg PO QHS 09/13/23 10/04/23 History Post menopausal: No Patient : No : No PFSH Medical History Wears partial dentures Wears glasses Cancer Bipolar disorder Thyroid disease High cholesterol Smoker Hx of colonic polyp Hypothyroidism (acquired) Hyponatremia PTSD (post-traumatic stress disorder) TBI (traumatic brain injury) Anxiety Depression Right bundle branch block (RBBB) Breast cancer Essential (primary) hypertension Hypothyroidism (acquired) GERD (gastroesophageal reflux disease) Neuropathy Heart murmur IBS (irritable bowel syndrome) Hyperlipidemia H/O malignant neoplasm of female breast Arthritis Anemia Psoriasis Bipolar disorder DM2 (diabetes mellitus, type 2) Hyponatremia Surgical History Hx of colonoscopy History of lumpectomy Family History Mother Congestive heart failure (CHF)Grandmother Congestive heart failure (CHF)Uncle , Patient states he during stress test, age late 50's CAD (coronary artery disease) Myocardial infarction Sudden cardiac Social History household members: spouse current occupational status: disabled Smoking Status: Current every day smoker tobacco type: cigarettes alcohol intake: never substance use type: marijuana what type of physical activity do you participate in: none HPI ABNORMAL US AND PMB Details: JOSIE MCKEE is a 73 year old who presents for discussion about a polyp in the endometrium. This was found on ultrasound and the ultrasound was ordered due to brown discharge. vaginitis smear was indeterminant but patient denies itching or odor. Ultrasound: FINDINGS: The uterus is retroverted and is in a midline position. The uterus measures 6.5 cm x 4.4 cm x 2.8 cm. There is a Nabothian cyst of the cervix. The endometrium measures 2.3 mm in thickness, and is fluid distended. Within the endometrium, I suspect a 1.2 cm x 0.9 cm x 0.3 cm endometrial polyp. A small amount of fluid is seen in the endometrium. There is no demonstrated myometrial mass. I.U.D. - The patient does not have an I.U.D. The right ovary is visualized. The right ovary measures 1.9 cm x 1.4 cm x 0.9 cm. There is a 7 mm x 7 mm x 7 mm right ovarian follicle. There is no visualized right adnexal mass or complex lesion. There is normal arterial and normal venous vascularity. The left ovary is visualized. The left ovary measures 2.3 cm x 2 cm x 1.6 cm. There is a 1.7 cm x 1.4 cm x 1.2 cm cyst in the left ovary. There is no visualized left adnexal mass or complex lesion. There is normal arterial and normal venous vascularity. There is no fluid in the cul-de-sac. US/Transvaginal Non- IMPRESSION: Mildly thickened endometrium with fluid and possible polyp within the endometrium measuring 1.2 cm x 0.9 cm x 0.3 cm. Left ovarian cyst. ROS Const ROS Unobtainable: All systems reviewed & are unremarkable except as noted in H Resp Resp: Reports system reviewed and no additional complaints, except as documented; Denies cough GI GI: Reports as per HPI Psych Psych: Reports system reviewed and no additional complaints, except as documented Exam Const General: cooperative, healthy appearing, comfortable and no acute distress Resp Effort & Inspection: normal respiratory effort Skin General: no rashes or lesions noted Psych Appearance: grossly normal Speech and Movement: speech and movement normal Coding Level of Care Code Off vis,est,level 4 Diagnoses Abnormal uterine bleeding due to endocervical polyp N93.9; N84.1 Sinus tachycardia R00.0 Stage 3 chronic kidney disease due to type 2 diabetes mellitus E11.22; N18.30 Type 2 diabetes mellitus with hyperglycemia, with long-term current use of insulin E11.65; Z79.4 Diabetes mellitus type: type 2 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 L ovarian Cyst Plan: After discussing the patient's diagnosis and treatment plan options, patient wishes to proceed with surgical management. I have discussed with the patient the risks, benefits, and alternatives of the procedure which include but are not limited to risks of anesthesia, bleeding, infection, possible damage to bowel, bladder, or surrounding vasculature which could lead to additional surgery to evaluate any complications. Patient agrees to procedure and wishes to proceed. ACOG/uptodate references given for additional information regarding procedure. Plan to proceed with a hysteroscopy dilation and curettage, removal of polyp. After review of past medical history, recommend pre-op clearance from pcp prior to proceeding with surgery and for recommendations on medications to continue or hold. . 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 insulin use: with middle or intermediate school principal use Diabetes mellitus complication status: with hyperglycemia Qualified Code(s): E11.65 - Type 2 diabetes mellitus with hyperglycemia; Z79.4 - alf (current) use of insulin (5) Hypothyroidism (acquired): Status: Chronic (6) Bipolar disorder: Status: Acute (7) Right bundle branch block (RBBB): Status: Chronic (8) Essential (primary) hypertension: Status: Chronic (9) Hyperlipidemia: Status: Acute (10) Heart murmur: Status: Chronic (11) Breast cancer: Status: Chronic Comment: 28 radiation treatments to the left breast w/ lumpectomy 1997 After discussing the patient's diagnosis and treatment plan options, patient wishes to proceed with surgical management. I have discussed with the patient the risks, benefits, and alternatives of the procedure which include but are not limited to risks of anesthesia, bleeding, infection, possible damage to bowel, bladder, or surrounding vasculature which could lead to additional surgery to evaluate any complications. Patient agrees to procedure and wishes to proceed. ACOG/uptodate references given for additional information regarding procedure. plan is for a hysteroscopy dilation and curettage, polypectomy
[2023-10-25] MEDS: Lactated Ringers 1,000 ML 15 ML IV (11:39)
--- NOTE | 2023-10-25 12:24 | DCINST_ITS ---
Discharge Instructions Diet Discharge Diet: No restrictions Activity Discharge Activity: Return to Normal Activity, May Shower and May Take a Tub Bath (after 1 week) May resume sexual activity in: 1-2 weeks Weight Bearing Status: Weight bearing as tolerated Lifting Restrictions: none Dressing / Incision Call your doctor if you observe: Fever of 101 or Higher, Using more than 1 pad per hour, Shortness of breath and Uncontrolled pain Follow Up Care Please Follow Up With: Lora Turpin DO When: Call [phone] to schedule appointment. Test Results: Test results from this visit will be discussed in further detail at your follow- up appointment, if applicable. Discharge Plan Admission Attending Provider: Lora Turpin Primary Care Provider: Marisol Freed Consulting Providers: Samir Caba Instructions Print Language: Pashto Discharge Orders/Prescriptions Prescriptions: Continued trazodone 50 mg tablet 50 mg PO QHS Patient Comments: TAKE 1 TABLET BY MOUTH IN THE EVENING oxybutynin chloride 5 mg tablet extended release 24hr 5 mg PO DAILY pantoprazole 40 mg tablet,delayed release (DR/EC) 40 mg PO DAILY gabapentin 100 mg capsule 100 mg PO TID lorazepam 1 mg tablet 0.5 mg PO DAILY PRN (Reason: anxiety) multivitamin Tablet 1 tab PO DAILY Hair, Skin and Nails (biotin) 10,000 mcg tablet,chewable 30,000 mcg PO DAILY ibuprofen 200 mg tablet 200 mg PO Q6H PRN (Reason: fever or pain) aripiprazole 5 mg tablet 7.5 mg PO DAILY atorvastatin 80 mg tablet 80 mg PO QHS levothyroxine 25 mcg tablet 25 mcg PO DAILY melatonin 5 mg capsule 5 mg PO QHS insulin lispro [Humalog KwikPen Insulin] 100 unit/mL insulin pen 7 unit subcut BID insulin glargine [Lantus Solostar U-100 Insulin] 100 unit/mL (3 mL) insulin pen 40 unit subcut QHS (DME) blood-glucose meter [Precision Xtra Monitor] [facility] See Rx Instructions .ROUTE .MEDSUPPLY Qty: 1 0RF Rx Instructions: As directed TO MONITOR BLOOD GLUCOSE LEVELS (DME) Precision Xtra Test Strip See Rx Instructions .ROUTE .MEDSUPPLY Qty: 270 3RF Rx Instructions: As directed WITH METER UP TO 3 TIMES DAILY (DME) blood-glucose meter [Precision Xtra Monitor] Misc See Rx Instructions .ROUTE .MEDSUPPLY Qty: 1 0RF Rx Instructions: As directed (DME) Precision Xtra Test Strip See Rx Instructions .ROUTE .MEDSUPPLY Qty: 300 3RF Rx Instructions: tid (DME) pen needle, diabetic [BD Ultra-Fine Blanca Pen Needle] 32 gauge x 5/32 needle See Rx Instructions .Route Qty: 200 6RF Rx Instructions: 3x/day (DME) pen needle, diabetic [BD Ultra-Fine Blanca Pen Needle] 32 gauge x 5/32 needle See Rx Instructions .ROUTE .MEDSUPPLY Qty: 100 6RF Rx Instructions: 3 times daily Farxiga 10 mg tablet 10 mg PO DAILY Qty: 30 6RF Referrals / Follow Up: Marisol Freed Lalo, [facility] [Primary Care Provider] - Disposition Disposition (needs filled in before D/C Order can be placed): Home, Self Care
[2023-10-25] MEDS: Lidocaine 1% (20 ml mdv) 20 ML Vial (12:30)
--- NOTE | 2023-10-25 12:38 | OP.PCM_ITS ---
Problems Associated Problem List Diagnoses (1) Abnormal uterine bleeding due to endocervical polyp: Report of Operation Date of Procedure: 10/25/23 Pre-Operative Diagnosis: abnormal uterine ultrasound in menopause Post-Operative Diagnosis: abnormal uterine ultrasound in menopause, endometrial mass Surgery/Procedure Performed:: hysteroscopy dilation and curettage Description of Surgical Findings:: atrophic endometrium and posterior polyp structure Surgeon: Lora Turpin tractor operator helper: None Type of Anesthesia: MAC and Topical Anesth Anesthesiologist: Jose Meyer Specimen's removed: endometrial curetting's Drains: none Estimated Blood Loss (mL): 5cc Description of Procedure: Patient was prepped and draped in a normal sterile fashion under MAC anesthesia. A weighted speculum was placed in the vagina and the anterior lip of the cervix was grasped with a single-tooth tenaculum. A paracervical block was placed with 1% lidocaine. Cervix was progressively dilated to allow passage of a 5 mm hysteroscope. The lining was fully visualized and noted to have atrophy of all flores of the uterus with the exception of a raised lesion on the posterior wall . the Uterus sounded to 6 cm. Curettage was performed and a polyp like structure was sent to pathology. All instruments were removed from the vagina and excellent hemostasis was noted. Patient was awoken and taken to recovery in stable condition. Complications none Admit VTE Documentation VTE Present on Admission: No VTE Mechan Device Prophylaxis: SCD's VTE Pharm Prophylaxis ordered?: No Multi Select Codes Urinary/Genital Urinary/Genital CPT Codes: 29068 Hysteroscopy,EMC, Polypectomy
--- NOTE | 2023-10-25 12:45 | EMB_PTH ---
PATIENT: JOSIE MCKEE LOC: [facility] [place][id number] AGE/SX: 73/F ROOM: RE10/25/[address]: Dr. Lora Turpin DO : 1950 BED: DIS: 10/25/2023 SPEC #: [id number] RECD: 10/25/23 13:43 STATUS: TONY CAROLYN #: [id number] KELVIN: 10/25/23 12:[address]: Lora Turpin DEPT: SURGICAL PATHOLOGY RECD BY: Yolanda Jacobsen ENTERED: 10/25/23 14:11 SP TYPE: ENDOM BX/C ANGEL DR: MD Marisol Kwon, [facility], QUALITY AUDITOR-C Tissues: Endometrium, NOS Procedures: Surgery Specimen Level IV HEADER OPERATION: Hysteroscopy, D&C PRE-OP DIAGNOSIS: Abnormal uterine bleeding, endocervical polyp TISSUE SUBMITTED: Endometrial curettings MICROSCOPIC DIAGNOSIS Endometrial curettings: Endometrial polyp with simple cystic hyperplasia without atypia. Additional fragments of superficial benign endometrial tissue. Fragments of benign ectocervical epithelium. See comment. Jessica 10/26/2023 COMMENT Clinical correlation and appropriate follow up are necessary. MICROSCOPIC DESCRIPTION Slides are reviewed. GROSS DESCRIPTION Received in fixative is one container labeled with the patient's name and designated Endometrial curettings. The specimen consists of a piece of koch polypoid tissue measuring 1.5 x 1.2 x 0.2m. Also present in the container are multiple fragments of koch soft tissue measuring in aggregate 1.0 x 0.2 x 0.1cm. The entire specimen is submitted in one cassette. Jessica 10/25/2023 TC:5 CPT:66904
[2023-10-25 15:27] LABS: Bedside Glucose 143 mg/dL (74-106)
== END 2023-10-25 13:58 | disposition home or self-care (01) ==
LOC: SDC 11:14 → AC 11:14
PROVIDERS: PCP Nurse Practitioner Family; Referring Provider Obstetrics & Gynecology; Visit Provider Obstetrics & Gynecology
PROC: 0UDB8ZZ Extraction of Endometrium, Via Natural or Artificial Opening Endoscopic (ICD-10-PCS; CPT 58558; principal; 2023-10-25 12:35)
DX: N85.01 Benign endometrial hyperplasia (principal); E11.22 Type 2 diabetes mellitus with diabetic chronic kidney disease; E11.40 Type 2 diabetes mellitus with diabetic neuropathy, unspecified; E11.65 Type 2 diabetes mellitus with hyperglycemia; Z79.4 Long term (current) use of insulin; N18.30 Chronic kidney disease, stage 3 unspecified; N93.9 Abnormal uterine and vaginal bleeding, unspecified; Z79.84 Long term (current) use of oral hypoglycemic drugs; Z78.0 Asymptomatic menopausal state; I12.9 Hypertensive chronic kidney disease with stage 1 through stage 4 chronic kidney disease, or unspecified chronic kidney disease; E78.00 Pure hypercholesterolemia, unspecified; N83.202 Unspecified ovarian cyst, left side; K21.9 Gastro-esophageal reflux disease without esophagitis; F17.210 Nicotine dependence, cigarettes, uncomplicated; E03.9 Hypothyroidism, unspecified; Z79.899 Other long term (current) drug therapy; Z79.890 Hormone replacement therapy
CPT/HCPCS: 58558; 00952; 36415; 80053; 82962; 85027; 86850; 86900; 86901; 88305; 93005; J7120; J2405

== ENCOUNTER → 2024-02-13 | Outpatient (CLI) | payer MEDICARE, MEDICAID, SELFPAY ==
[2024-02-13 17:01] LABS: Absolute Lymphocyte Count 3.08 X10^3/uL (0.83-4.51); Absolute Neutrophil Count 4.5 X10^3/uL (2.0-7.7); Basophil# 0.05 X10^3/uL; Basophil% 0.6 % (0-1); Eosinophil# 0.14 X10^3/uL; Eosinophils% 1.7 % (0-5); Hematocrit 41.2 % (37-47); Hemoglobin 13.1 g/dL (12.0-15.0); Lymphocyte # 3.08 X10^3/ul (0.83-4.51); Lymphocyte % 37.3 % (19-41); Mean Corp Hgb Conc 31.8 g/dL (32-36); Mean Corpuscular Hgb 30.4 pg (27.0-32.0); Mean Corpuscular Volume 95.6 fL (81-99); Monocyte# 0.45 X10^3/uL; Monocyte% 5.5 % (0-10); NRBC Flagged by Analyzer 0 % (0-5); Neutrophil # 4.51 X10^3/uL (2.7-7.7); Neutrophil % 54.7 % (47-70); Platelet Count 213 K/mm3 (150-450); RBC Distribution Width CV 14.2 % (11.6-14.6); Red Blood Count 4.31 M/mm3 (4.2-5.4); White Blood Count 8.3 K/mm3 (4.4-11.0)
[2024-02-13 17:23] LABS: Microalbumin,Random Urine 17.8 mg/L (NO RANGE EST.)
[2024-02-13 17:51] LABS: ALB/GLOB Ratio 0.8 RATIO (0.9-2.4); AST(SGOT) 23 U/L (15-37); Alanine Aminotransfer ALT/SGPT 22 U/L (13-56); Albumin, Serum 3.5 g/dL (3.2-5.0); Alkaline Phosphatase 80 U/L (45-117); Anion Gap 8 (5-15); BUN 20 mg/dL (7-18); BUN/Creat Ratio 15.4 RATIO (10-20); Calcium,Total 9.9 mg/dL (8.5-10.1); Chloride 103 mmol/L (98-107); Cholesterol 176 mg/dL (200); EST Glomerular Filtration Rate 43 mL/min (>60); Est Glom Filt Rate - Afr Amer 51 mL/min (>60); Globulin 4.2 g/dL (2.2-4.2); Glucose 124 mg/dL (74-106); High Density Lipoprotein 34 mg/dL; Protein, Total 7.7 g/dL (6.4-8.2); Sodium Level 137 mmol/L (136-145); T4 Free Direct 1.18 ng/dL (0.76-1.46); Triglycerides 437 mg/dL
== END | disposition home or self-care (01) ==
LOC: LAB 16:21
PROVIDERS: PCP Nurse Practitioner Family; Referring Provider Nurse Practitioner Family; Visit Provider Nurse Practitioner Family
DX: E11.42 Type 2 diabetes mellitus with diabetic polyneuropathy (principal); E03.9 Hypothyroidism, unspecified; E78.5 Hyperlipidemia, unspecified
CPT/HCPCS: 36415; 80053; 80061; 82043; 84439; 84443; 85025

== ENCOUNTER → 2024-05-02 | Outpatient (CLI) | payer MEDICARE, MEDICAID, SELFPAY ==
[2024-05-02 18:26] LABS: ALB/GLOB Ratio 0.8 RATIO (0.9-2.4); AST(SGOT) 23 U/L (15-37); Alanine Aminotransfer ALT/SGPT 26 U/L (13-56); Albumin, Serum 3.5 g/dL (3.2-5.0); Alkaline Phosphatase 72 U/L (45-117); Anion Gap 11 (5-15); BUN 20 mg/dL (7-18); BUN/Creat Ratio 15.4 RATIO (10-20); Calcium,Total 9.7 mg/dL (8.5-10.1); Chloride 108 mmol/L (98-107); Cholesterol 160 mg/dL (200); EST Glomerular Filtration Rate 42 mL/min (>60); Est Glom Filt Rate - Afr Amer 51 mL/min (>60); Globulin 4.3 g/dL (2.2-4.2); Glucose 115 mg/dL (74-106); High Density Lipoprotein 47 mg/dL; Potassium 4.1 mmol/L (3.5-5.1); Protein, Total 7.8 g/dL (6.4-8.2); Sodium Level 139 mmol/L (136-145); Triglycerides 212 mg/dL; Very Low Density Lipoprotein 42 mg/dL (5-40)
== END | disposition home or self-care (01) ==
LOC: VSLAB 15:32
PROVIDERS: PCP Nurse Practitioner Family; Visit Provider Nurse Practitioner Family
DX: N18.30 Chronic kidney disease, stage 3 unspecified (principal); E78.5 Hyperlipidemia, unspecified
CPT/HCPCS: 36415; 80053; 80061

== ENCOUNTER → 2024-07-31 | Outpatient (CLI) | payer MEDICARE, MEDICAID, SELFPAY ==
[2024-07-31 16:32] LABS: Absolute Lymphocyte Count 2.33 X10^3/uL (0.83-4.51); Absolute Neutrophil Count 5.9 X10^3/uL (2.0-7.7); Basophil# 0.04 X10^3/uL; Basophil% 0.4 % (0-1); Eosinophil# 0.12 X10^3/uL; Eosinophils% 1.3 % (0-5); Hematocrit 37.9 % (37-47); Hemoglobin 12.5 g/dL (12.0-15.0); Lymphocyte # 2.33 X10^3/ul (0.83-4.51); Lymphocyte % 26.2 % (19-41); Mean Corpuscular Hgb 31.3 pg (27.0-32.0); Mean Corpuscular Volume 94.8 fL (81-99); Mean Platelet Vol. 9.9 fl (6.2-12.0); Monocyte% 5.6 % (0-10); NRBC Flagged by Analyzer 0 % (0-5); Neutrophil # 5.89 X10^3/uL (2.7-7.7); Neutrophil % 66.3 % (47-70); Platelet Count 240 K/mm3 (150-450); RBC Distribution Width CV 14.1 % (11.6-14.6); RBC Distribution Width SD 48.7 fl (35.1-43.9); White Blood Count 8.9 K/mm3 (4.4-11.0)
[2024-07-31 16:46] LABS: Microalbumin,Random Urine 18.8 mg/L (NO RANGE EST.)
[2024-07-31 17:04] LABS: ALB/GLOB Ratio 1.1 RATIO (0.9-2.4); AST(SGOT) 22 U/L (<=31); Alanine Aminotransfer ALT/SGPT 15 U/L (<=34); Albumin, Serum 3.8 g/dL (3.4-4.8); Alkaline Phosphatase 72 U/L (35-104); Anion Gap 11 (5-15); BUN 19 mg/dL (4-19); BUN/Creat Ratio 16.1 RATIO (10-20); Calcium,Total 9.7 mg/dL (7.6-11.0); Chloride 107 mmol/L (98-108); Creatinine, Serum 1.16 mg/dL (0.70-1.20); EST Glomerular Filtration Rate 49 (>60); Globulin 3.5 g/dL (2.2-4.2); Glucose 151 mg/dL (70-99); Potassium 3.8 mmol/L (3.3-5.1); Protein, Total 7.3 g/dL (5.9-8.4); Sodium Level 140 mmol/L (133-145); Total Bilirubin 0.57 mg/dL (0.00-1.30)
== END | disposition home or self-care (01) ==
LOC: VSLAB 14:01
PROVIDERS: PCP Nurse Practitioner Family; Visit Provider Nurse Practitioner Family
DX: E11.42 Type 2 diabetes mellitus with diabetic polyneuropathy (principal); E03.9 Hypothyroidism, unspecified
CPT/HCPCS: 36415; 80053; 82043; 84439; 84443; 85025

== ENCOUNTER → 2024-08-17 | Outpatient (CLI) | payer MEDICARE, MEDICAID, SELFPAY ==
--- NOTE | 2024-08-17 15:48 | BI_ITS ---
EXAM: SCRN MAMM (CAD)W/GEOFFREY BILAT 08/17/2024 CLINICAL HISTORY: F, Age 74 y/o , SCREENING. Personal history of left breast cancer with radiation in 1997. Family history of breast cancer in a maternal aunt. TECHNIQUE: Bilateral screening digital breast tomosynthesis with 2D and 3D images. Computer aided detection. COMPARISON: Prior exam(s) dated 08/17/2023. FINDINGS: Limited evaluation of the right posterior tissues in the right axillary tissue due to limited mobility of the right upper extremity. TISSUE DENSITY: The breast tissue is composed of scattered area of fibroglandular density. Bilateral Breast Mammographic Findings: No significant masses, calcifications or other abnormalities are identified. Redemonstrated postsurgical changes in the left breast. BI/SCRN MAMM (CAD)W/GEOFFREY BILAT IMPRESSION: Right Breast: BIRADS 1 NEGATIVE. Left Breast: BIRADS 2 BENIGN FINDING. OVERALL FINAL ASSESSMENT: BIRADS 2 BENIGN FINDING. RECOMMENDATION: Routine annual follow-up in 1 Year A letter with findings and recommendations will be mailed to the patient. Reading Location: [id number]
== END | disposition home or self-care (01) ==
LOC: OPBI 15:45
PROVIDERS: PCP Nurse Practitioner Family; Referring Provider Nurse Practitioner Family; Visit Provider Nurse Practitioner Family
DX: Z12.31 Encounter for screening mammogram for malignant neoplasm of breast (principal); Z85.3 Personal history of malignant neoplasm of breast; Z92.3 Personal history of irradiation; Z80.3 Family history of malignant neoplasm of breast
CPT/HCPCS: 77063; 77067

== ENCOUNTER → 2025-05-07 | Outpatient (CLI) | payer MEDICARE, MEDICAID, SELFPAY ==
[2025-05-07 16:43] LABS: Hematocrit 44.0 % (37-47); Hemoglobin 14.2 g/dL (12.0-15.0); Immature Granulocytes Count 0.030 X10^3/uL (0.0-0.0); Mean Corp Hgb Conc 32.3 g/dL (32-36); Mean Corpuscular Volume 97.6 fL (81-99); Mean Platelet Vol. 10.7 fl (6.2-12.0); NRBC Flagged by Analyzer 0 % (0-5); Platelet Count 224 K/mm3 (150-450); RBC Distribution Width CV 14.3 % (11.6-14.6); RBC Distribution Width SD 51.3 fl (35.1-43.9); Red Blood Count 4.51 M/mm3 (4.2-5.4); White Blood Count 10.8 K/mm3 (4.4-11.0)
[2025-05-07 18:02] LABS: AST(SGOT) 36 U/L (<=31); Alanine Aminotransfer ALT/SGPT 25 U/L (<=34); Albumin, Serum 4.2 g/dL (3.4-4.8); Alkaline Phosphatase 64 U/L (35-104); Anion Gap 12 (7-18); BUN 15 mg/dL (4-19); BUN/Creat Ratio 11.8 RATIO (10-20); Calcium,Total 10.6 mg/dL (7.6-11.0); Carbon Dioxide 24.5 mmol/L (20.0-29.0); Chloride 102 mmol/L (96-106); Cholesterol 164 mg/dL (<=200); Globulin 3.5 g/dL (2.2-4.2); Glucose 190 mg/dL (70-99); Low Density Lipoprotein Calc. 74 mg/dL; Potassium 4.7 mmol/L (3.5-5.1); Triglycerides 335 mg/dL; Very Low Density Lipoprotein 67 mg/dL (5-40); cholesterol:hdl ratio screen 4.54
== END | disposition home or self-care (01) ==
LOC: VSLAB 14:14
PROVIDERS: PCP Nurse Practitioner Family; Referring Provider Nurse Practitioner Family; Visit Provider Nurse Practitioner Family
DX: E11.42 Type 2 diabetes mellitus with diabetic polyneuropathy (principal); E03.9 Hypothyroidism, unspecified; E78.5 Hyperlipidemia, unspecified
CPT/HCPCS: 36415; 80053; 80061; 84439; 84443; 85025